=== PATIENT | male | born 1930 | race Caucasian/White ===

== ENCOUNTER 2017-03-24 02:21 | Observation (INO) | payer MEDICARE, OTHER ==
--- NOTE | 2017-03-24 02:37 | EDM.PDOC ---
ED HPI GENERAL MEDICAL PROBLEM - General Stated Complaint: ABD PAIN,CHILLS Time Seen by Provider: 03/24/17 02:21 Source of Information: Reports: Patient, Family History Limitations: Reports: No Limitations - History of Present Illness INITIAL COMMENTS - FREE TEXT/NARRATIVE: c/o weak x 24h has vague pain in his toe and his mid abd, had normal BM yesterday h/o CVA with L hemiparesis, lives with , walks 90 steps daily with a cane with his son, went to PT yesterday and was told his "pacemaker was acting up"-- skipping beats, was in NSR 4d ago at [facility] has 3.5 x 16 mm overlapping stents x 2 placed in [facility] 1m ago, kept overnight, labs stable then with wbc 7.2, hgb 15.3, BUN/creat 19/0.8 and CMP neg was seen by cardiology as preop for back surgery, has h/o 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 and lumbar spondylolithesis echo 1m ago with EF>70% and mild diastolic HF PMH CAD, stent x 2 5d ago, complete heart block, enlarged ascending aorta 4 cm, htn, dyslipidemia, GERD, blind OS, LAZ, BPH PSH multiple, see list meds includes ASA, Plavix, warfarin no f/c/d, no cough smoked in distant past - Related Data Allergies Allergy/AdvReac Type Severity Reaction Status Date / Time acetaminophen [From Tylox] Allergy Unknown Cannot Verified 03/24/17 02:37 Remember codeine Allergy Unknown Cannot Verified 03/24/17 02:37 Remember oxycodone HCl [From Tylox] Allergy Unknown Cannot Verified 03/24/17 02:37 Remember Home Meds: Home Meds Acetaminophen [Tylenol] 650 mg PO TID PRN 03/24/17 [History] Aspirin [Low Dose Aspirin EC] 81 mg PO DAILY 03/24/17 [History] Calcium Carbonate/Vitamin D3 [Calcium 600-Vit D3 400 Tablet] 1 tab PO DAILY 08/05 [History] Carvedilol [Carvedilol] 6.25 mg PO BID 03/24/17 [History] Clopidogrel Bisulfate [Clopidogrel] 75 mg PO DAILY 03/24/17 [History] Dextran 70/Hypromellose [Artificial Tears] 1 drop EYELF BID 03/24/17 [History] Furosemide [Lasix] 20 mg PO DAILY PRN 03/24/17 [History] Latanoprost [Xalatan 0.005% Ophth Soln] 1 drop EYERT BEDTIME 03/24/17 [History] Lutein 20 mg PO DAILY 03/24/17 [History] Multivitamin [Multivitamins] 1 tab PO DAILY 03/24/17 [History] Nitroglycerin 0.4 mg SL ASDIRECTED PRN 03/24/17 [History] Pantoprazole [ProTONIX] 40 mg PO BEDTIME 03/24/17 [History] Ranitidine [Zantac] 150 mg PO BID 03/24/17 [History] Tamsulosin [Flomax] 0.4 mg PO DAILY 03/24/17 [History] Timolol Maleate [Timoptic 0.5% Opth Soln] 1 drop EYERT DAILY 03/24/17 [History] Triamcinolone Acetonide [Triamcinolone Acetonide 0.1% Crm] 1 applic TOP BID 08/05 [History] Warfarin [Coumadin] 2.5 mg PO [id number] 03/24/17 [History] Warfarin [Coumadin] 5 mg PO MO 03/24/17 [History] atorvaSTATin [Lipitor] 40 mg PO DAILY 03/24/17 [History] hydrOXYzine HCl [Atarax] 25 mg PO Q8H PRN 03/24/17 [History] Past Medical History HEENT History: Reports: Other (See Below) 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 Musculoskeletal History: Reports: Osteoarthritis Neurological History: Reports: CVA ED ROS GENERAL - Review of Systems Review Of Systems: See Below Constitutional: Reports: Weakness. Denies: Fever, Chills, Malaise, Night Sweats , Diaphoresis, Decreased Appetite HEENT: Reports: No Symptoms Respiratory: Reports: Shortness of Breath Cardiovascular: Reports: No Symptoms. Denies: Chest Pain Endocrine: Reports: No Symptoms GI/Abdominal: Reports: Abdominal Pain. Denies: Constipation, Diarrhea, Nausea, Vomiting : Reports: No Symptoms Musculoskeletal: Reports: No Symptoms Skin: Reports: No Symptoms Neurological: Reports: Gait Disturbance Psychiatric: Reports: No Symptoms, Other Immunologic: Reports: No Symptoms ED EXAM, GENERAL - Physical Exam Exam: See Below Exam Limited By: No Limitations General Appearance: Alert, WD/WN, Mild Distress, Other (alert, conversant, talks complete sentences, answers questions) Eye Exam: Bilateral Eye: EOMI, Normal Inspection, PERRL Ear Exam: Bilateral Ear: Auricle Normal Nose: Normal Inspection, Normal Mucosa, No Blood Throat/Mouth: Normal Inspection, Normal Lips, Normal Oropharynx, Normal Voice, No Airway Compromise Head: Atraumatic, Normocephalic Neck: Normal Inspection, Supple, Non-Tender Respiratory/Chest: Other (tachypnea, no cough, fair AE b/l, scattered rales L base, no wheeze) Cardiovascular: No Edema, No Gallop, No Rub, Other (appeared reg, 2/6 [facility] at [facility] ) GI/Abdominal: Soft, Non-Tender, No Organomegaly, No Distention, No Mass Back Exam: Normal Inspection Extremities: Normal Inspection, Non-Tender, No Pedal Edema Neurological: Alert, Oriented, CN II-XII Intact, Normal Cognition, Other (L sided weakness) Psychiatric: Normal Affect, Normal Mood Skin Exam: Warm, Dry, Intact, Normal Color, No Rash Lymphatic: No Adenopathy Course - Vital Signs Last Recorded V/S: Last Vital Signs Temp 37.2 C 03/24/17 04:10 Pulse 86 03/24/17 04:10 Resp 22 H 03/24/17 04:10 BP 110/74 03/24/17 04:10 Pulse Ox 91 L 03/24/17 04:10 - Orders/Labs/Meds Orders: Active Orders 24 hr Category Date Time Status EKG Documentation Completion [RC] ASDIRECTED Care 03/24/17 02:31 Active Abdomen 1V Flat [CR] Stat Exams 03/24/17 02:29 Taken Ang Chest [CT] Stat Exams 03/24/17 05:32 Taken Chest 1V Frontal [CR] Stat Exams 03/24/17 02:29 Taken CULTURE BLOOD [BC] Urgent Lab 03/24/17 02:50 Received CULTURE BLOOD [BC] Urgent Lab 03/24/17 02:55 Received Blood Culture x2 Reflex Set [OM.PC] Urgent Oth 03/24/17 02:28 Ordered EKG 12 Lead [EK] Routine Ther 03/24/17 02:30 Ordered Labs: Laboratory Tests 03/24/17 03/24/17 03/24/17 Range/Units 02:50 02:50 02:50 WBC 4.6 (4.5-12.0) X10-3/uL RBC 4.34 (4.30-5.75) x10(6)uL Hgb 13.4 (11.5-15.5) g/dL Hct 40.2 (30.0-51.3) % MCV 92.6 (80-96) fL MCH 30.9 (27.7-33.6) pg MCHC 33.3 (32.2-35.4) g/dL RDW 14.6 (11.5-15.5) % Plt Count 189 (125-369) X10(3)uL MPV 7.5 (7.4-10.4) fL Add Manual Diff Yes Neutrophils % (Manual) 82 (46-82) % Band Neutrophils % 1 (0-6) % Lymphocytes % (Manual) 12 L (13-37) % Monocytes % (Manual) 3 L (4-12) % Eosinophils % (Manual) 2 (0-5) % PT 19.1 H (8.7-11.1) INR 1.87 H (0.89-1.13) D-Dimer, Quantitative (100-400) ng/mL VBG pH (7.32-7.42) VBG pCO2 VBG pO2 VBG HCO3 mmol/L VBG O2 Saturation VBG Base Excess O2 Delivery Device Sodium (135-145) mmol/L Potassium (3.5-5.3) mmol/L Chloride (100-110) mmol/L Carbon Dioxide (23-29) mmol/L BUN (8-23) mg/dL Creatinine (0.6-1.3) mg/dL Est Cr Clr Drug Dosing Estimated GFR (MDRD) (>60) BUN/Creatinine Ratio (9-20) Glucose (80-116) mg/dL Lactic Acid 2.0 (0.5-2.2) mmol/L Calcium (8.6-10.2) mg/dL Total Bilirubin (0.1-1.3) mg/dL AST (5-27) IU/L ALT (14-26) IU/L Alkaline Phosphatase (56-112) IU/L Troponin I (0.02-0.06) NG/ML C-Reactive Protein (0.0-1.0) mg/dL NT-Pro-B Natriuret Pep (5-450) pg/mL Total Protein (6.0-8.0) g/dL Albumin (3.2-4.6) g/dL Globulin g/dL Albumin/Globulin Ratio Urine Color (YELLOW) Urine Appearance (CLEAR) Urine pH (5.0-6.5) Ur Specific [place] (1.010-1.025) Urine Protein (NEGATIVE) mg/dL Urine Glucose (UA) (NEGATIVE) mg/dL Urine Ketones (NEGATIVE) mg/dL Urine Occult Blood (NEGATIVE) Urine Nitrite (NEGATIVE) Urine Bilirubin (NEGATIVE) Urine Urobilinogen (NEGATIVE) mg/dL Ur Leukocyte Esterase (NEGATIVE) Urine RBC (0) Urine WBC (0) Ur Squamous Epith Cells (NS,R,O) Urine Bacteria (NS) 03/24/17 03/24/17 03/24/17 Range/Units 02:50 02:50 02:50 WBC (4.5-12.0) X10-3/uL RBC (4.30-5.75) x10(6)uL Hgb (11.5-15.5) g/dL Hct (30.0-51.3) % MCV (80-96) fL MCH (27.7-33.6) pg MCHC (32.2-35.4) g/dL RDW (11.5-15.5) % Plt Count (125-369) X10(3)uL MPV (7.4-10.4) fL Add Manual Diff Neutrophils % (Manual) (46-82) % Band Neutrophils % (0-6) % Lymphocytes % (Manual) (13-37) % Monocytes % (Manual) (4-12) % Eosinophils % (Manual) (0-5) % PT (8.7-11.1) INR (0.89-1.13) D-Dimer, Quantitative (100-400) ng/mL VBG pH (7.32-7.42) VBG pCO2 VBG pO2 VBG HCO3 mmol/L VBG O2 Saturation VBG Base Excess O2 Delivery Device Sodium 139 (135-145) mmol/L Potassium 3.5 (3.5-5.3) mmol/L Chloride 104 (100-110) mmol/L Carbon Dioxide 26 (23-29) mmol/L BUN 12 (8-23) mg/dL Creatinine 0.8 (0.6-1.3) mg/dL Est Cr Clr Drug Dosing TNP Estimated GFR (MDRD) > 60 (>60) BUN/Creatinine Ratio 15.0 (9-20) Glucose 100 (80-116) mg/dL Lactic Acid (0.5-2.2) mmol/L Calcium 8.4 L (8.6-10.2) mg/dL Total Bilirubin 0.9 (0.1-1.3) mg/dL AST 19 (5-27) IU/L ALT 22 (14-26) IU/L Alkaline Phosphatase 58 (56-112) IU/L Troponin I < 0.01 L (0.02-0.06) NG/ML C-Reactive Protein < 0.5 (0.0-1.0) mg/dL NT-Pro-B Natriuret Pep 111 (5-450) pg/mL Total Protein 6.3 (6.0-8.0) g/dL Albumin 3.4 (3.2-4.6) g/dL Globulin 2.9 g/dL Albumin/Globulin Ratio 1.2 Urine Color (YELLOW) Urine Appearance (CLEAR) Urine pH (5.0-6.5) Ur Specific [place] (1.010-1.025) Urine Protein (NEGATIVE) mg/dL Urine Glucose (UA) (NEGATIVE) mg/dL Urine Ketones (NEGATIVE) mg/dL Urine Occult Blood (NEGATIVE) Urine Nitrite (NEGATIVE) Urine Bilirubin (NEGATIVE) Urine Urobilinogen (NEGATIVE) mg/dL Ur Leukocyte Esterase (NEGATIVE) Urine RBC (0) Urine WBC (0) Ur Squamous Epith Cells (NS,R,O) Urine Bacteria (NS) 03/24/17 03/24/17 03/24/17 Range/Units 02:50 02:55 03:22 WBC (4.5-12.0) X10-3/uL RBC (4.30-5.75) x10(6)uL Hgb (11.5-15.5) g/dL Hct (30.0-51.3) % MCV (80-96) fL MCH (27.7-33.6) pg MCHC (32.2-35.4) g/dL RDW (11.5-15.5) % Plt Count (125-369) X10(3)uL MPV (7.4-10.4) fL Add Manual Diff Neutrophils % (Manual) (46-82) % Band Neutrophils % (0-6) % Lymphocytes % (Manual) (13-37) % Monocytes % (Manual) (4-12) % Eosinophils % (Manual) (0-5) % PT (8.7-11.1) INR (0.89-1.13) D-Dimer, Quantitative 1150 H (100-400) ng/mL VBG pH 7.447 H (7.32-7.42) VBG pCO2 36.8 VBG pO2 38 VBG HCO3 25 mmol/L VBG O2 Saturation 74 VBG Base Excess 1.0 O2 Delivery Device Nasal cannula Sodium (135-145) mmol/L Potassium (3.5-5.3) mmol/L Chloride (100-110) mmol/L Carbon Dioxide (23-29) mmol/L BUN (8-23) mg/dL Creatinine (0.6-1.3) mg/dL Est Cr Clr Drug Dosing Estimated GFR (MDRD) (>60) BUN/Creatinine Ratio (9-20) Glucose (80-116) mg/dL Lactic Acid (0.5-2.2) mmol/L Calcium (8.6-10.2) mg/dL Total Bilirubin (0.1-1.3) mg/dL AST (5-27) IU/L ALT (14-26) IU/L Alkaline Phosphatase (56-112) IU/L Troponin I (0.02-0.06) NG/ML C-Reactive Protein (0.0-1.0) mg/dL NT-Pro-B Natriuret Pep (5-450) pg/mL Total Protein (6.0-8.0) g/dL Albumin (3.2-4.6) g/dL Globulin g/dL Albumin/Globulin Ratio Urine Color Yellow (YELLOW) Urine Appearance Clear (CLEAR) Urine pH 6.5 (5.0-6.5) Ur Specific [place] 1.010 (1.010-1.025) Urine Protein Negative (NEGATIVE) mg/dL Urine Glucose (UA) Normal (NEGATIVE) mg/dL Urine Ketones Negative (NEGATIVE) mg/dL Urine Occult Blood Negative (NEGATIVE) Urine Nitrite Negative (NEGATIVE) Urine Bilirubin Negative (NEGATIVE) Urine Urobilinogen Normal (NEGATIVE) mg/dL Ur Leukocyte Esterase Negative (NEGATIVE) Urine RBC 0-5 (0) Urine WBC 0-5 (0) Ur Squamous Epith Cells Occasional (NS,R,O) Urine Bacteria Rare H (NS) Meds: Medications Discontinued Medications Generic Name Dose Route Start Last Admin Trade Name Aristeo PRN Reason Stop Dose Admin Iopamidol 100 ml 03/24/17 05:28 03/24/17 05:41 Isovue-370 (76%) IV 03/24/17 05:29 100 ml . DIRECTED ONE Administration - Re-Assessments/Exams Free Text/Narrative Re-Assessment/Exam: 03/24/17 04:29 labs unremarkable with little change c/w 1m ago, does have tachypnea 03/24/17 07:20 d-dimer elevated, chest CTA nondiagnostic as pt had motion artifact, it may be reasonable to do LE u/s even though he is on warfarin, does have tachypnea and hypoxia, along with h/o of chills and weakness would need to consider dx of acute bronchitis and possible need for antbx, would still need to consider possible PE with nondiagnositic chest CTA d/w hospitalist who will see him first and put in his admission orders pt requests full code status, plan to admit d/w pt's and son (and his spouse) who are in agreement Departure - Departure Time of Disposition: 07:23 Disposition: Refer to Observation Condition: Fair Clinical Impression: Acute bronchitis, Tachypnea, Hypoxia, Chills, Warfarin anticoagulation, Weakness - Discharge Information Referrals: Ellis Coleman MD [Primary Care Provider] - - My Orders Last 24 Hours: My Active Orders 03/24/17 02:28 Blood Culture x2 Reflex Set [OM.PC] Urgent 03/24/17 02:29 Abdomen 1V Flat [CR] Stat Chest 1V Frontal [CR] Stat 03/24/17 02:30 EKG 12 Lead [EK] Routine 03/24/17 02:31 EKG Documentation Completion [RC] ASDIRECTED 03/24/17 02:50 CULTURE BLOOD [BC] Urgent 03/24/17 02:55 CULTURE BLOOD [BC] Urgent 03/24/17 05:32 Ang Chest [CT] Stat - Assessment/Plan Last 24 Hours: My Active Orders 03/24/17 02:28 Blood Culture x2 Reflex Set [OM.PC] Urgent 03/24/17 02:29 Abdomen 1V Flat [CR] Stat Chest 1V Frontal [CR] Stat 03/24/17 02:30 EKG 12 Lead [EK] Routine 03/24/17 02:31 EKG Documentation Completion [RC] ASDIRECTED 03/24/17 02:50 CULTURE BLOOD [BC] Urgent 03/24/17 02:55 CULTURE BLOOD [BC] Urgent 03/24/17 05:32 Ang Chest [CT] Stat
[2017-03-24] MEDS ORDERED: Iopamidol 755 Mg/ML 100 ML Bottle IV ONE (05:28)
[2017-03-24] MEDS ORDERED: Sodium Chloride 0.9% 10 ML Syringe FLUSH PRN ×2 (08:23→08:45)
[2017-03-24] MEDS ORDERED: Acetaminophen 650 MG Supp RECTAL PRN (08:45)
[2017-03-24] MEDS ORDERED: Warfarin Sliding Scale PO SCH (09:15)
--- NOTE | 2017-03-24 09:21 | PCM.HP ---
H&P History of Present Illness - General Date of Service: 03/24/17 Admit Problem/Dx: Admission Diagnosis/Problem Admission Diagnosis/Problem Aspiration pneumonia Source of Information: Patient, Family History Limitations: Reports: No Limitations - History of Present Illness Initial Comments - Free Text/Narative: Patient is an 86-year-old male with a history of vasculopathy with CVA 2 in 2015 and an WV at the time of his first CVA as well as 2 stents placed in February 2017. After his hospitalization for stent placement, the patient noticed he started to develop a cough. It was somewhat insidious. Over time the cough has grown more severe, he's had increasing shortness of breath, and overnight developed severe chills and abdominal pain. He was so uncomfortable he called the ambulance and they came into the emergency department. He felt very bloated and gassy he was shivering and lightheaded. He was nauseated but had no vomiting. He does have typically loose stools first thing in the morning and then none throughout the rest of the day. This has not changed since 1982 when he had a colon resection due to polyps. He is on warfarin for atrial fibrillation and the emergency room physician was concerned about the possibility of PE since his warfarin was subtherapeutic at 1.87. CT chest did not show any evidence of PE but did show bilateral lower lobe infiltrates. The patient was recommended for admission due to his age, the unclear etiology of abdominal pain, and further treatment for pneumonia, possibly aspiration. Patient at this time no longer has chills, is comfortable from a respiratory standpoint, still has a dry cough which at times is paroxysmal,. He does note he feels tight around the abdomen and has had nasal congestion for months, lightheaded and severe cough for the last 1-2 weeks, severe episodes of chills although not as severe as today. He's been incontinent of urine. No burning. The urine incontinence has been going on for quite some time and it is made worse by the cough. He's had no fevers that he knows of at home. He has been having trouble with bad nightmares which was thought to be due to the Atarax which has been stopped. Past medical history: #1. Colon resection due to polyps many years ago which resulted in chronic loose stools. #2. CVA 2 in 2016 about a month apart. Patient also had a small WV at this time which did not require intervention. 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 History of myocardial infarction in 2016 and again last month the patient was admitted for elective coronary angiogram as part of preoperative cardiovascular evaluation prior to epidural steroid injection. 2 stents placed on February 16, 2017. Left heart catheterization showed LAD obstruction with 2 stents placed drug-eluting. Patient advised to continue aspirin indefinitely, Plavix uninterrupted for minimum of 1 year, warfarin. Protonix was started for GI prophylaxis. Carvedilol and high intensity statin therapy were also started at this time. #4. Gastroesophageal reflux disease #5. Hyperlipidemia #6. Atrial fibrillation with history of pacemaker placement. On warfarin for this. History of complete heart block status post dual-chamber pacemaker placement 08/12/2015. #7. BPH currently on Flomax. #8. Chronic itching for which the patient was taking Atarax when necessary. This has been stopped due to vivid dreams/nightmares. #9. 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 10. Obstructive sleep apnea on CPAP. Current medications and allergies updated in the EMR. Of note patient is not allergic to acetaminophen. He does take this regularly at home. Social history: Patient lives [place] in [place] [facility] [place] with his . His son also lives on the same property in a separate home. He is a nonsmoker, drinks alcohol rarely about once a year. Family history: Noncontributory due to patient age. - Related Data Allergies/Adverse Reactions: Allergies Allergy/AdvReac Type Severity Reaction Status Date / Time acetaminophen [From Tylox] Allergy Unknown Cannot Verified 03/24/17 02:37 Remember codeine Allergy Unknown Cannot Verified 03/24/17 02:37 Remember oxycodone HCl [From Tylox] Allergy Unknown Cannot Verified 03/24/17 02:37 Remember Home Medications: Home Meds Acetaminophen [Tylenol] 650 mg PO TID PRN 03/24/17 [History] Aspirin [Low Dose Aspirin EC] 81 mg PO DAILY 03/24/17 [History] Calcium Carbonate/Vitamin D3 [Calcium 600-Vit D3 400 Tablet] 1 tab PO DAILY 08/05 [History] Carvedilol [Carvedilol] 6.25 mg PO BID 03/24/17 [History] Clopidogrel Bisulfate [Clopidogrel] 75 mg PO DAILY 03/24/17 [History] Dextran 70/Hypromellose [Artificial Tears] 1 drop EYELF BID 03/24/17 [History] Furosemide [Lasix] 20 mg PO DAILY PRN 03/24/17 [History] Latanoprost [Xalatan 0.005% Ophth Soln] 1 drop EYERT BEDTIME 03/24/17 [History] Lutein 20 mg PO DAILY 03/24/17 [History] Multivitamin [Multivitamins] 1 tab PO DAILY 03/24/17 [History] Nitroglycerin 0.4 mg SL ASDIRECTED PRN 03/24/17 [History] Pantoprazole [ProTONIX] 40 mg PO BEDTIME 03/24/17 [History] Ranitidine [Zantac] 150 mg PO BID 03/24/17 [History] Tamsulosin [Flomax] 0.4 mg PO DAILY 03/24/17 [History] Timolol Maleate [Timoptic 0.5% Opth Soln] 1 drop EYERT DAILY 03/24/17 [History] Triamcinolone Acetonide [Triamcinolone Acetonide 0.1% Crm] 1 applic TOP BID 08/05 [History] Warfarin [Coumadin] 2.5 mg PO SUTUWETHFRSA 03/24/17 [History] Warfarin [Coumadin] 5 mg PO MO 03/24/17 [History] atorvaSTATin [Lipitor] 40 mg PO DAILY 03/24/17 [History] hydrOXYzine HCl [Atarax] 25 mg PO Q8H PRN 03/24/17 [History] Past Medical History HEENT History: Reports: Other (See Below) 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 Musculoskeletal History: Reports: Osteoarthritis Neurological History: Reports: CVA Social & Family History - Tobacco Use Smoking Status *Q: Former Smoker Used Tobacco, but Quit: Yes Month Tobacco Last Used: / - Recreational Drug Use Recreational Drug Use: No H&P Review of Systems - Review of Systems: Review Of Systems: See Below General: Reports: Chills, Weakness HEENT: Reports: Rhinitis, Post Nasal Drip, Sinus Congestion Pulmonary: Reports: Shortness of Breath, Wheezing, Cough (Nonproductive paroxysmal) Cardiovascular: Reports: Dyspnea on Exertion Gastrointestinal: Reports: Abdominal Pain, Flatus, Nausea (Now much improved.) Genitourinary: Reports: Incontinence (Chronic) Musculoskeletal: Reports: Other (Chronic arthritis, patient also has left upper extremity and lower extremity weakness secondary to stroke.) Skin: Reports: Bruising Psychiatric: Reports: No Symptoms Neurological: Reports: No Symptoms (Other than chronic related to previous stroke.) Hematologic/Lymphatic: Reports: Easy Bruising Immunologic: Reports: No Symptoms Exam - Exam Exam: See Below - Vital Signs Vital Signs: Last Vital Signs Temp 37.2 C 03/24/17 04:10 Pulse 86 03/24/17 05:45 Resp 24 H 03/24/17 05:45 BP 102/67 03/24/17 05:45 Pulse Ox 91 L 03/24/17 05:45 Weight: 80.995 kg - Exam General: Alert, Oriented, Cooperative HEENT: PERRLA, EOMI, Mucosa Moist & [place], Posterior Pharynx Clear, Pupils Reactive, TMs Clear Neck: Supple, Full Range of Motion Lungs: Decreased Breath Sounds, Crackles, Wheezing Cardiovascular: Normal S1, Normal S2, Irregular Rhythm GI/Abdominal Exam: Normal Bowel Sounds, Soft, Tender (Diffusely, no rebound, no guarding. I don't appreciate a distended bladder on physical exam.) Back Exam: Normal Inspection Extremities: No Pedal Edema (Swelling or tenderness. No redness. Toenail fungus present.) - Patient Data Result Diagrams: 03/24/17 02:50 03/24/17 02:50 *Q Meaningful Use (ADM) - VTE *Q VTE Criteria *Q: - Stroke *Q Stroke Criteria *Q: - AMI *Q AMI Criteria *Q: - Problem List (1) Aspiration pneumonia due to saliva SNOMED Code(s): 806773547 ICD Code: J69.0 - PNEUMONITIS DUE TO INHALATION OF FOOD AND VOMIT Status: Acute Priority: High Current Visit: Yes Problem Details: Bilateral infiltrates on chest x-ray sick just of pneumonia, with patient recent history of procedure with sedation putting him at risk for aspiration. The patient's insidious symptom onset suggestive of aspiration. I'm going to treat him with Levaquin 500 mg by mouth daily which will give good aspiration pneumonia coverage. We'll monitor respiratory status and anticipate likely ready for discharge in the next 48 hours. With wheezing will do DuoNeb's 4 times a day. Induced sputum for possible etiology. (2) CAD (coronary artery disease) SNOMED Code(s): 13704669 ICD Code: I25.10 - ATHSCL HEART DISEASE OF [place] CORONARY ARTERY W/O ANG PCTRS Status: Acute Current Visit: Yes Problem Details: Recent stent placement 2 in January 2017. Recommend continuing Plavix, aspirin, warfarin. Continue other heart medications. Cardiac monitoring given the new addition of beta rissa and his history of atrial fibrillation with rapid ventricular response. (3) Abdominal pain SNOMED Code(s): 20740172 ICD Code: R10.9 - UNSPECIFIED ABDOMINAL PAIN Status: Acute Current Visit : Yes Problem Details: Etiology unclear. We'll rule out possible acute urinary retention with bladder scanning. Check a UA to rule out urinary infection. If patient's pain worsens, we'll get imaging. Patient is high risk for ischemic bowel as well but has had no blood. We'll continue to monitor. 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 Although patient is slightly subtherapeutic at this time with an INR of 1.87, he's fairly well anticoagulated given his Plavix and aspirin for DVT/PE at this level. Will not bridge at this time. Problem List Initiated/Reviewed/Updated: Yes Orders Last 24hrs: Active Orders 24 hr Category Date Time Status Admission Status [Patient Status] [ADT] Routine ADT 03/24/17 08:56 Active Ambulate [RC] ASDIRECTED Care 03/24/17 08:45 Active Anticoag Warfarin Education *Q [RC] DAILY Care 03/24/17 08:45 Active Bladder Scan [RC] ONETIME Care 03/24/17 08:58 Active Cardiac Monitoring [RC] CONTINUOUS Care 03/24/17 08:47 Active Height and Weight [RC] DAILY Care 03/24/17 08:45 Active Intake and Output [RC] QSHIFT Care 03/24/17 08:47 Active Oxygen Therapy [RC] PRN Care 03/24/17 08:46 Active RT Aerosol Therapy [RC] ASDIRECTED Care 03/24/17 08:50 Active Up With Assistance [RC] ASDIRECTED Care 03/24/17 08:45 Active VTE/DVT Education [RC] Per Unit Routine Care 03/24/17 08:46 Active Vital Signs [RC] Q4H Care 03/24/17 08:46 Active Consult to Pharmacy [CONS] Routine Cons 03/24/17 09:02 Active OT Evaluation and Treatment [CONS] Routine Cons 03/24/17 08:45 Active PT Evaluation and Treatment [CONS] Routine Cons 03/24/17 08:45 Active Respiratory Care Assess and Treatment [CONS] Routine Cons 03/24/17 08:45 Active 2 Gram Sodium Diet [DIET] Diet 03/24/17 Breakfast Active CBC WITH AUTO DIFF [HEME] AM Lab 03/25/17 05:11 Ordered COMPREHENSIVE METABOLIC PN,CMP [CHEM] AM Lab 03/25/17 05:11 Ordered CULTURE SPUTUM + SMEAR [RM] Routine Lab 03/24/17 08:55 Uncollected INR,PT,PROTHROMBIN TIME [COAG] DAILY Lab 03/25/17 08:45 Ordered INR,PT,PROTHROMBIN TIME [COAG] DAILY Lab 03/26/17 08:45 Ordered INR,PT,PROTHROMBIN TIME [COAG] DAILY Lab 03/27/17 08:45 Ordered INR,PT,PROTHROMBIN TIME [COAG] DAILY Lab 03/28/17 08:45 Ordered INR,PT,PROTHROMBIN TIME [COAG] DAILY Lab 03/29/17 08:45 Ordered INR,PT,PROTHROMBIN TIME [COAG] DAILY Lab 03/30/17 08:45 Ordered INR,PT,PROTHROMBIN TIME [COAG] DAILY Lab 03/31/17 08:45 Ordered INR,PT,PROTHROMBIN TIME [COAG] DAILY Lab 04/01/17 08:45 Ordered UA W/MICROSCOPIC [URIN] Stat Lab 03/24/17 08:45 Uncollected Acetaminophen [Tylenol] Med 03/24/17 08:45 Active 650 mg RECTAL Q4H PRN Albuterol/Ipratropium [DuoNeb 3.0-0.5 MG/3 ML] Med 03/24/17 11:00 Active 3 ml NEB QIDRT Aspirin [Halfprin] Med 03/25/17 09:00 Ordered 81 mg PO DAILY Carvedilol [Coreg] Med 03/24/17 21:00 Ordered 6.25 mg PO BID Clopidogrel [Plavix] Med 03/25/17 09:00 Ordered 75 mg PO DAILY Dextran 70/Hypromellose [Artificial Tears] Med 03/24/17 21:00 Ordered 1 drop EYELF BID Latanoprost [Xalatan 0.005% Ophth Soln] Med 03/24/17 21:00 Ordered 1 drop EYERT BEDTIME Levofloxacin [Levaquin] Med 03/24/17 09:00 Ordered 500 mg PO Q24H Pantoprazole [ProTONIX] Med 03/24/17 21:00 Ordered 40 mg PO BEDTIME Ranitidine [Zantac] Med 03/24/17 21:00 Ordered 150 mg PO BID Sodium Chloride 0.9% [Saline Flush] Med 03/24/17 08:23 Active 10 ml FLUSH ASDIRECTED PRN Sodium Chloride 0.9% [Saline Flush] Med 03/24/17 08:45 Active 10 ml FLUSH ASDIRECTED PRN Tamsulosin [Flomax] Med 03/25/17 09:00 Ordered 0.4 mg PO DAILY Timolol Maleate [Timoptic 0.5% Ophth Soln] Med 03/25/17 09:00 Ordered 1 drop EYERT DAILY Warfarin Sliding Scale [Coumadin Sliding Scale] Med 03/24/17 09:15 Ordered 1 each PO ASDIRECTED atorvaSTATin [Lipitor] Med 03/25/17 09:00 Ordered 40 mg PO DAILY Peripheral IV Insertion Adult [OM.PC] Routine Oth 03/24/17 08:45 Ordered Sequential Compression Device [OM.PC] Per Unit Routine Oth 03/24/17 08:47 Ordered Resuscitation Status Routine Resus Stat 03/24/17 08:45 Ordered Medication Orders Acetaminophen (Tylenol) 650 mg RECTAL Q4H PRN PRN Reason: Mild pain/fever Albuterol/Ipratropium (Duoneb 3.0-0.5 Mg/3 Ml) 3 ml NEB QIDRT [facility] Aspirin (Halfprin) 81 mg PO DAILY [facility] Atorvastatin Calcium (Lipitor) 40 mg PO DAILY [facility] Carvedilol (Coreg) 6.25 mg PO BID [facility] Clopidogrel Bisulfate (Plavix) 75 mg PO DAILY [facility] Levofloxacin (Levaquin) 500 mg PO Q24H [facility] Stop: 03/28/17 09:01 Non-Formulary Medication (Dextran 70/Hypromellose [Artificial Tears]) 1 drop EYELF BID [facility] Non-Formulary Medication (Latanoprost [Xalatan 0.005% Ophth Soln]) 1 drop EYERT BEDTIME [facility] Non-Formulary Medication (Pantoprazole [Protonix]) 40 mg PO BEDTIME [facility] Non-Formulary Medication (Ranitidine [Zantac]) 150 mg PO BID [facility] Sodium Chloride (Saline Flush) 10 ml FLUSH ASDIRECTED PRN PRN Reason: Keep Vein Open Sodium Chloride (Saline Flush) 10 ml FLUSH ASDIRECTED PRN PRN Reason: Keep Vein Open Tamsulosin HCl (Flomax) 0.4 mg PO DAILY [facility] Timolol Maleate (Timoptic 0.5% Ophth Soln) ml EYERT DAILY [facility] Warfarin Sodium (Coumadin Sliding Scale) 1 each PO ASDIRECTED [facility]
[2017-03-24] MEDS: Albuterol/Ipratropium 3.0-0.5 MG/3 ML Neb Soln NEB SCH ×3 (10:18→21:03)
[2017-03-24] MEDS: Levofloxacin 500 MG Tab PO SCH (10:28)
--- NOTE | 2017-03-24 10:34 | CR ---
INDICATION: Short of breath. CHEST: An AP upright view of the chest was obtained 03/24/2017 and compared with 08/10/2012 and 09/26/2011. The patient is rotated to the right. The heart appears to be enlarged, but is emphasized by a poor inspiration and AP positioning. Interval placement of a bipolar pacemaker is noted with the ventricular lead in the area of the apex of the right ventricle. Somewhat prominent markings are emphasized by the poor inspiration. When clinically possible, full inspiration PA and lateral views of the chest may be helpful for further evaluation. No gross consolidating pneumonia or significant sized effusion was identified. The aorta is tortuous and calcified. IMPRESSION: Study somewhat limited. No definite acute process, but cannot exclude a mild degree of CHF and interstitial lung edema. No free air is noted under the hemidiaphragm leaves. MTDD
--- NOTE | 2017-03-24 10:39 | CR ---
INDICATION: Mid abdominal pain. ABDOMEN: Two images of the abdomen were obtained supine, 03/24/2017. 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 Multiple phleboliths are noted in the pelvis. A small mass is again noted in the pelvis, compatible with mildly distended urinary bladder. There was some motion on the examination, most likely due to breathing. The pattern of gas and feces was fairly nonspecific, with no gross free air or definite obstructive process. Gas and stool is noted in the rectum. Degenerative changes are noted at the sacroiliac joints. Degenerative changes and disk disease are noted at L3-4, L4-5. No definite organomegaly or nonvascular pathologic calcifications were identified. Calcifications are noted in the area of the iliac arteries. IMPRESSION: Nonacute abdomen with multiple findings as noted above. MTDD
[2017-03-24] MEDS ORDERED: Warfarin 5 MG Tab PO SCH (16:00)
[2017-03-24] MEDS: Clopidogrel 75 MG Tab *PTOM PO SCH (17:41)
[2017-03-24] MEDS: Timolol Maleate 0.5% Ophth Soln 5 ML Bottle EYERT SCH (17:42)
[2017-03-24] MEDS: CARBOXYMETHYLCELLULOSE EYELF SCH ×2 (17:43→21:05)
[2017-03-24] MEDS: GLYCERIN 0.9% EYELF SCH ×2 (17:43→21:05)
[2017-03-24] MEDS: Aspirin 81 MG Tab.EC PO SCH (17:45)
[2017-03-24] MEDS: Tamsulosin 0.4 MG Cap.ER *PTOM PO SCH (17:45)
[2017-03-24] MEDS: atorvaSTATin 40 MG Tab *PTOM PO SCH (17:47)
[2017-03-24] MEDS: Carvedilol 6.25 MG Tab *PTOM PO SCH (21:02)
[2017-03-24] MEDS: RANITIDINE 150 MG PO SCH (21:03)
[2017-03-24] MEDS: Latanoprost 0.005% Ophth Soln 2.5 ML Bottle *PTOM EYERT SCH (21:05)
[2017-03-25] MEDS: Albuterol/Ipratropium 3.0-0.5 MG/3 ML Neb Soln NEB SCH ×4 (07:28→20:05)
[2017-03-25] MEDS: Carvedilol 6.25 MG Tab *PTOM PO SCH ×2 (09:02→20:10)
[2017-03-25] MEDS: Tamsulosin 0.4 MG Cap.ER *PTOM PO SCH (09:03)
[2017-03-25] MEDS: Aspirin 81 MG Tab.EC PO SCH (09:03)
[2017-03-25] MEDS: CARBOXYMETHYLCELLULOSE EYELF SCH ×2 (09:04→20:05)
[2017-03-25] MEDS: RANITIDINE 150 MG PO SCH ×2 (09:04→20:04)
[2017-03-25] MEDS: GLYCERIN 0.9% EYELF SCH ×2 (09:04→20:05)
[2017-03-25] MEDS: Clopidogrel 75 MG Tab *PTOM PO SCH (09:04)
[2017-03-25] MEDS: Timolol Maleate 0.5% Ophth Soln 5 ML Bottle EYERT SCH (09:05)
[2017-03-25] MEDS: Levofloxacin 500 MG Tab PO SCH (11:01)
--- NOTE | 2017-03-25 13:09 | PCM.PN ---
- General Info Date of Service: 03/25/17 Subjective Update: Patient feeling much improved today. Shortness of breath is better. Abdominal pain is better. No nausea or vomiting. Continues to have his chronic loose stools with no change. Has had a much more productive cough and is getting out phlegm. He was able to get a sputum sample today. Functional Status: Reports: Pain Controlled, Tolerating Diet, Urinating - Review of Systems General: Reports: No Symptoms - Patient Data Vitals - Most Recent: Last Vital Signs Temp 37.1 C 03/25/17 04:00 Pulse 74 03/25/17 11:12 Resp 22 H 03/25/17 04:00 BP 120/78 03/25/17 09:02 Pulse Ox 92 L 03/25/17 11:11 Weight - Most Recent: 81.023 kg Lab Results Last 24 Hours: Laboratory Results - last 24 hr 03/25/17 03/25/17 03/25/17 Range/Units 08:10 08:10 08:10 WBC 11.5 (4.5-12.0) X10-3/uL RBC 4.31 (4.30-5.75) x10(6)uL Hgb 13.3 (11.5-15.5) g/dL Hct 39.5 (30.0-51.3) % MCV 91.8 (80-96) fL MCH 30.8 (27.7-33.6) pg MCHC 33.6 (32.2-35.4) g/dL RDW 15.2 (11.5-15.5) % Plt Count 210 (125-369) X10(3)uL MPV 8.1 (7.4-10.4) fL Add Manual Diff Yes Neutrophils % (Manual) 81 (46-82) % Band Neutrophils % 1 (0-6) % Lymphocytes % (Manual) 14 (13-37) % Monocytes % (Manual) 4 (4-12) % PT 14.8 H (8.7-11.1) INR 1.46 H (0.89-1.13) Sodium 134 L (135-145) mmol/L Potassium 3.8 (3.5-5.3) mmol/L Chloride 101 (100-110) mmol/L Carbon Dioxide 25 (23-29) mmol/L BUN 12 (8-23) mg/dL Creatinine 0.9 (0.6-1.3) mg/dL Est Cr Clr Drug Dosing 56.10 mL/min Estimated GFR (MDRD) > 60 (>60) BUN/Creatinine Ratio 13.3 (9-20) Glucose 107 (80-116) mg/dL Calcium 8.8 (8.6-10.2) mg/dL Total Bilirubin 1.3 (0.1-1.3) mg/dL AST 16 D (5-27) IU/L ALT 17 D (14-26) IU/L Alkaline Phosphatase 52 L (56-112) IU/L Total Protein 6.6 (6.0-8.0) g/dL Albumin 3.3 (3.2-4.6) g/dL Globulin 3.3 g/dL Albumin/Globulin Ratio 1.0 Med Orders - Current: Current Medications Acetaminophen (Tylenol) 650 mg RECTAL Q4H PRN PRN Reason: Mild pain/fever Albuterol/Ipratropium (Duoneb 3.0-0.5 Mg/3 Ml) 3 ml NEB QIDRT [facility] Last Admin: 03/25/17 11:07 Dose: 3 ml Aspirin (Halfprin) 81 mg PO DAILY [facility] Last Admin: 03/25/17 09:03 Dose: 81 mg Atorvastatin Calcium (Lipitor) 40 mg PO WITHDINNER [facility] Last Admin: 03/24/17 17:47 Dose: 40 mg Carboxymethylcellulose (Refresh Optive) 0 ml EYELF BID [facility] Last Admin: 03/25/17 09:04 Dose: 1 drop Carvedilol (Coreg) 6.25 mg PO BID [facility] Last Admin: 03/25/17 09:02 Dose: 6.25 mg Clopidogrel Bisulfate (Plavix) 75 mg PO DAILY [facility] Last Admin: 03/25/17 09:04 Dose: 75 mg Latanoprost (Xalatan 0.005% Oph Soln) 0 ml EYERT BEDTIME [facility] Last Admin: 03/24/17 21:05 Dose: 1 drop Levofloxacin (Levaquin) 500 mg PO Q24H [facility] Stop: 03/28/17 10:01 Last Admin: 03/25/17 11:01 Dose: 500 mg Non-Formulary Medication 1 Each ( Ranitidine [Zantac] 150 Mg) *Ptom 150 mg PO BID [facility] Last Admin: 03/25/17 09:04 Dose: 150 mg Pantoprazole Sodium (Protonix) 40 mg PO BEDTIME [facility] Last Admin: 03/24/17 21:04 Dose: 40 mg Sodium Chloride (Saline Flush) 10 ml FLUSH ASDIRECTED PRN PRN Reason: Keep Vein Open Last Admin: 03/24/17 09:00 Dose: 10 ml Sodium Chloride (Saline Flush) 10 ml FLUSH ASDIRECTED PRN PRN Reason: Keep Vein Open Tamsulosin HCl (Flomax) 0.4 mg PO DAILY [facility] Last Admin: 03/25/17 09:03 Dose: 0.4 mg Timolol Maleate (Timoptic 0.5% Ophth Soln) 0 ml EYERT DAILY [facility] Last Admin: 03/25/17 09:05 Dose: 1 drop Warfarin Sodium (Coumadin Sliding Scale) 1 each PO ASDIRECTED [facility] Warfarin Sodium (Coumadin) 5 mg PO 1600 [facility] Stop: 03/25/17 18:00 Discontinued Medications Iopamidol (Isovue-370 (76%)) 100 ml IV . DIRECTED ONE Stop: 03/24/17 05:29 Last Admin: 03/24/17 05:41 Dose: 100 ml Warfarin Sodium (Coumadin) 2.5 mg PO 1600 [facility] Stop: 03/24/17 16:01 Last Admin: 03/24/17 17:44 Dose: 2.5 mg - Exam General: Alert, Cooperative, No Acute Distress HEENT: Pupils Equal, Pupils Reactive Neck: Supple Lungs: Other (Lungs much clearer to auscultation with better air movement today. Continues to have occasional expiratory wheezes with deep exhalation. Occasional rhonchi with coarse breath sounds throughout.) Cardiovascular: Regular Rate, Regular Rhythm, No Murmurs GI/Abdominal Exam: Normal Bowel Sounds, Soft, Non-Tender (Mildly tender diffusely, much less than yesterday.) Back Exam: Normal Inspection Extremities: Other (Unchanged. No pedal edema.) Psy/Mental Status: Alert, Normal Affect, Normal Mood - Problem List & Annotations (1) Aspiration pneumonia due to saliva SNOMED Code(s): 812506215 Code(s): J69.0 - PNEUMONITIS DUE TO INHALATION OF FOOD AND VOMIT Status: Acute Priority: High Current Visit: Yes Annotation/Comment:: Patient significantly improved. Likely will be ready for discharge tomorrow if he continues to social good improvement. We'll be able to discharge on oral Levaquin. (2) CAD (coronary artery disease) SNOMED Code(s): 78168790 Code(s): I25.10 - ATHSCL HEART DISEASE OF [place] CORONARY ARTERY W/O ANG PCTRS Status: Acute Current Visit: Yes Annotation/Comment:: No symptoms, continue monitoring. Cardiac monitoring shows paced rhythm with occasional PVCs. (3) Abdominal pain SNOMED Code(s): 12691005 Code(s): R10.9 - UNSPECIFIED ABDOMINAL PAIN Status: Acute Current Visit: Yes Annotation/Comment:: Much improved. Suspect related to paroxysmal coughing. No residual urine. (4) Warfarin anticoagulation SNOMED Code(s): 50456653 Code(s): Z79.01 - [facility] (CURRENT) USE OF ANTICOAGULANTS Status: Acute Current Visit: Yes Annotation/Comment:: Pharmacy continuing to dose. - Problem List Review Problem List Initiated/Reviewed/Updated: Yes - My Orders Last 24 Hours: My Active Orders 03/24/17 14:00 Timolol Maleate [Timoptic 0.5% Ophth Soln] 0 ml EYERT DAILY 03/24/17 15:15 Carboxymethylcellulos/Glycerin [Refresh Optive] 0 ml EYELF BID 03/24/17 16:00 Aspirin [Halfprin] 81 mg PO DAILY Tamsulosin [Flomax] 0.4 mg PO DAILY 03/24/17 18:00 atorvaSTATin [Lipitor] 40 mg PO WITHDINNER 03/24/17 21:00 Carvedilol [Coreg] 6.25 mg PO BID Latanoprost [Xalatan 0.005% Ophth Soln] 0 ml EYERT BEDTIME Pantoprazole [ProTONIX] 40 mg PO BEDTIME Ranitidine [Zantac] 150 mg PO BID 03/25/17 16:00 Warfarin [Coumadin] 5 mg PO 1600 03/26/17 08:45 INR,PT,PROTHROMBIN TIME [COAG] DAILY 03/27/17 08:45 INR,PT,PROTHROMBIN TIME [COAG] DAILY 03/28/17 08:45 INR,PT,PROTHROMBIN TIME [COAG] DAILY 03/29/17 08:45 INR,PT,PROTHROMBIN TIME [COAG] DAILY 03/30/17 08:45 INR,PT,PROTHROMBIN TIME [COAG] DAILY 03/31/17 08:45 INR,PT,PROTHROMBIN TIME [COAG] DAILY 04/01/17 08:45 INR,PT,PROTHROMBIN TIME [COAG] DAILY
[2017-03-25] MEDS ORDERED: Warfarin 5 MG Tab *PTOM PO SCH (16:00)
[2017-03-25] MEDS: atorvaSTATin 40 MG Tab *PTOM PO SCH (17:24)
[2017-03-25] MEDS: Latanoprost 0.005% Ophth Soln 2.5 ML Bottle *PTOM EYERT SCH (20:05)
[2017-03-25] MEDS ORDERED: Acetaminophen Soln 650 MG/20.3 ML UD Cup PO ONE (22:24)
[2017-03-25] MEDS ORDERED: Docusate Sodium 100 MG Cap PO STA (22:24)
[2017-03-26] MEDS: Albuterol/Ipratropium 3.0-0.5 MG/3 ML Neb Soln NEB SCH (07:34)
[2017-03-26] MEDS: Timolol Maleate 0.5% Ophth Soln 5 ML Bottle EYERT SCH (08:34)
[2017-03-26] MEDS: Tamsulosin 0.4 MG Cap.ER *PTOM PO SCH (08:34)
[2017-03-26] MEDS: Carvedilol 6.25 MG Tab *PTOM PO SCH (08:34)
[2017-03-26] MEDS: RANITIDINE 150 MG PO SCH (08:34)
[2017-03-26] MEDS: CARBOXYMETHYLCELLULOSE EYELF SCH (08:34)
[2017-03-26] MEDS: GLYCERIN 0.9% EYELF SCH (08:34)
[2017-03-26] MEDS: Aspirin 81 MG Tab.EC PO SCH (08:35)
[2017-03-26] MEDS: Clopidogrel 75 MG Tab *PTOM PO SCH (08:35)
--- NOTE | 2017-03-26 10:02 | PCM.DCSUM1 ---
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 After his hospitalization for stent placement, the patient noticed he started to develop a cough. It was somewhat insidious. Over time the cough has grown more severe, he's had increasing shortness of breath, and night prior to admission developed severe chills and abdominal pain. He was so uncomfortable he called the ambulance and they came into the emergency department. He felt very bloated and gassy, he was shivering and lightheaded. He was nauseated but had no vomiting. He does have typically loose stools first thing in the morning and then none throughout the rest of the day. This has not changed since 1982 when he had a colon resection due to polyps. He is on warfarin for atrial fibrillation and the emergency room physician was concerned about the possibility of PE since his warfarin was subtherapeutic at 1.87. CT chest did not show any evidence of PE but did show bilateral lower lobe infiltrates. The patient was recommended for admission due to his age, the unclear etiology of abdominal pain, and further treatment for pneumonia, possibly aspiration. Hospital course: Patient was started on levaquin and did very well with this. On the day of discharge, was off oxygen. No CP, no SOB. Abdominal pain was resolved and thought to be secondary to severe coughing. No N/V, no change in chronic loose stools. - Discharge Data Discharge Date: 03/26/17 Discharge Disposition: Home, Self-Care 01 Condition: Good - Discharge Diagnosis/Problem(s) (1) Aspiration pneumonia due to saliva SNOMED Code(s): 804431920 ICD Code: J69.0 - PNEUMONITIS DUE TO INHALATION OF FOOD AND VOMIT Status: Acute Priority: High Current Visit: Yes Problem Details: Significantly improved, now off oxygen and satting in the low 90s. Ready for dicharge, will discharge on 5 days total of PO levaquin, which he will have had his 3rd dose today. (2) CAD (coronary artery disease) SNOMED Code(s): 15518463 ICD Code: I25.10 - ATHSCL HEART DISEASE OF [place] CORONARY ARTERY W/O ANG PCTRS Status: Acute Current Visit: Yes Problem Details: No symptoms, continue monitoring. Cardiac monitoring shows paced rhythm with occasional PVCs. (3) Abdominal pain SNOMED Code(s): 00791204 ICD Code: R10.9 - UNSPECIFIED ABDOMINAL PAIN Status: Acute Current Visit : Yes Problem Details: Much improved. Suspect related to paroxysmal coughing. No residual urine. (4) Warfarin anticoagulation SNOMED Code(s): 08256991 ICD Code: Z79.01 - LONG-TERM (CURRENT) USE OF ANTICOAGULANTS Status: Acute Current Visit: Yes Problem Details: Will require follow up tomorrow as outpatient as continues to be subtherapeutic at this time. - Patient Summary/Data Consults: Consultations 03/24/17 08:45 OT Evaluation and Treatment [CONS] Routine Please Evaluate and Treat. OT Reason for Consult: sp cva This query below is only for informational purposes and is not editable. Admission Diagnosis/Problem: Acute bronchitis PT Evaluation and Treatment [CONS] Routine Please Evaluate and Treat. PT Reason for Consult: hx cva This query below is only for informational purposes and is not editable. Admission Diagnosis/Problem: Acute bronchitis Respiratory Care Assess and Treatment [CONS] Routine Comment: Physician Instructions: 03/24/17 09:02 Consult to Pharmacy [CONS] Routine Comment: Physician Instructions: Quantity: Reason for Consult: dose warfarin - Patient Instructions Diet: Heart Healthy Diet, GI Soft/Low Residue/Low Fiber Activity: Cough & Deep Breathe Notify Provider of: Fever (SOB) - Discharge Plan Prescriptions/Med Rec: Levofloxacin [Levaquin] 500 mg PO Q24H 2 Days #2 tablet Home Medications: Home Meds Acetaminophen [Tylenol] 650 mg PO TID PRN 03/24/17 [History] Calcium Carbonate/Vitamin D3 [Calcium 600-Vit D3 400 Tablet] 1 tab PO DAILY 08/05 [History] Carvedilol 6.25 mg PO BID 03/24/17 [History] Clopidogrel Bisulfate [Clopidogrel] 75 mg PO DAILY 03/24/17 [History] Dextran 70/Hypromellose [Artificial Tears] 1 drop EYELF BID 03/24/17 [History] Furosemide [Lasix] 20 mg PO DAILY PRN 03/24/17 [History] Latanoprost [Xalatan 0.005% Ophth Soln] 1 drop EYERT BEDTIME 03/24/17 [History] Lutein 20 mg PO DAILY 03/24/17 [History] Multivitamin [Multivitamins] 1 tab PO DAILY 03/24/17 [History] Nitroglycerin 0.4 mg SL ASDIRECTED PRN 03/24/17 [History] Pantoprazole [ProTONIX] 40 mg PO BEDTIME 03/24/17 [History] Ranitidine [Zantac] 150 mg PO BID 03/24/17 [History] Tamsulosin [Flomax] 0.4 mg PO DAILY 03/24/17 [History] Timolol Maleate [Timoptic 0.5% Ophth Soln] 1 drop EYERT DAILY 03/24/17 [History] Triamcinolone Acetonide [Triamcinolone Acetonide 0.1% Crm] 1 applic TOP BID 08/05 [History] atorvaSTATin [Lipitor] 40 mg PO DAILY 03/24/17 [History] hydrOXYzine HCl [hydrOXYzine] 25 mg PO Q8H PRN 03/24/17 [History] Albuterol/Ipratropium [DuoNeb 3.0-0.5 MG/3 ML] 3 ml NEB QIDRT neb 03/26/17 [Rx] Aspirin [Halfprin] 81 mg PO DAILY tab.ec 03/26/17 [Rx] Levofloxacin [Levaquin] 500 mg PO Q24H 2 Days #2 tablet 03/26/17 [Rx] Warfarin Sliding Scale [Coumadin Sliding Scale] 1 each PO ASDIRECTED tablet 10/05 [Rx] Warfarin [Coumadin] 5 mg PO .PHARMACY TO DOSE #0 03/26/17 [Rx] Warfarin [Coumadin] 5 mg PO 1600 tablet 03/26/17 [Rx] Other Amb Orders: Schedule Procedure [COMM] Time Frame: 1 Week, Location: Determined By Patient Referrals: Ellis Coleman MD [Primary Care Provider] - - Discharge Summary/Plan Comment DC Time >30 min.: Yes - Patient Data Vitals - Most Recent: Last Vital Signs Temp 36.7 C 03/26/17 08:22 Pulse 78 03/26/17 08:34 Resp 18 03/26/17 08:22 BP 112/76 03/26/17 08:34 Pulse Ox 93 L 03/26/17 09:45 Weight - Most Recent: 80.626 kg I&O - Last 24 hours: Intake & Output 03/25/17 03/26/17 03/26/17 23:59 06:59 14:59 Intake Total Balance Lab Results - Last 24 hrs: Laboratory Results - last 24 hr 03/26/17 Range/Units 06:20 PT 16.1 H (8.7-11.1) INR 1.58 H (0.89-1.13) Med Orders - Current: Current Medications Acetaminophen (Tylenol) 650 mg RECTAL Q4H PRN PRN Reason: Mild pain/fever Last Admin: 03/25/17 20:20 Dose: 650 mg Albuterol/Ipratropium (Duoneb 3.0-0.5 Mg/3 Ml) 3 ml NEB QIDRT [facility] Last Admin: 03/26/17 07:34 Dose: 3 ml Aspirin (Halfprin) 81 mg PO DAILY [facility] Last Admin: 03/26/17 08:35 Dose: 81 mg Atorvastatin Calcium (Lipitor) 40 mg PO WITHDINNER [facility] Last Admin: 03/25/17 17:24 Dose: 40 mg Carboxymethylcellulose (Refresh Optive) 0 ml EYELF BID [facility] Last Admin: 03/26/17 08:34 Dose: 1 drop Carvedilol (Coreg) 6.25 mg PO BID [facility] Last Admin: 03/26/17 08:34 Dose: 6.25 mg Clopidogrel Bisulfate (Plavix) 75 mg PO DAILY [facility] Last Admin: 03/26/17 08:35 Dose: 75 mg Latanoprost (Xalatan 0.005% Ophth Soln) 0 ml EYERT BEDTIME [facility] Last Admin: 03/25/17 20:05 Dose: 1 drop Levofloxacin (Levaquin) 500 mg PO Q24H [facility] Stop: 03/28/17 10:01 Last Admin: 03/25/17 11:01 Dose: 500 mg Non-Formulary Medication 1 Each ( Ranitidine [Zantac] 150 Mg) *Ptom 150 mg PO BID [facility] Last Admin: 03/26/17 08:34 Dose: 150 mg Pantoprazole Sodium (Protonix) 40 mg PO BEDTIME [facility] Last Admin: 03/25/17 20:05 Dose: 40 mg Sodium Chloride (Saline Flush) 10 ml FLUSH ASDIRECTED PRN PRN Reason: Keep Vein Open Last Admin: 03/24/17 09:00 Dose: 10 ml Sodium Chloride (Saline Flush) 10 ml FLUSH ASDIRECTED PRN PRN Reason: Keep Vein Open Tamsulosin HCl (Flomax) 0.4 mg PO DAILY [facility] Last Admin: 03/26/17 08:34 Dose: 0.4 mg Timolol Maleate (Timoptic 0.5% Ophth Soln) 0 ml EYERT DAILY [facility] Last Admin: 03/26/17 08:34 Dose: 1 drop Warfarin Sodium (Coumadin Sliding Scale) 1 each PO ASDIRECTED [facility] Warfarin Sodium (Coumadin) 5 mg PO 1600 [facility] Stop: 03/26/17 16:01 Discontinued Medications Acetaminophen (Tylenol) 650 mg PO ONETIME ONE Stop: 03/25/17 22:25 Docusate Sodium (Colace) 100 mg PO ONETIME STA Stop: 03/25/17 22:25 Last Admin: 03/25/17 22:41 Dose: 100 mg Iopamidol (Isovue-370 (76%)) 100 ml IV . DIRECTED ONE Stop: 03/24/17 05:29 Last Admin: 03/24/17 05:41 Dose: 100 ml Warfarin Sodium (Coumadin) 2.5 mg PO 1600 [facility] Stop: 03/24/17 16:01 Last Admin: 03/24/17 17:44 Dose: 2.5 mg Warfarin Sodium (Coumadin) 5 mg PO 1600 [facility] Stop: 03/25/17 18:00 Last Admin: 03/25/17 15:52 Dose: 5 mg - Exam General: Reports: Alert, Oriented, Cooperative HEENT: Reports: Pupils Equal, Pupils Reactive Neck: Reports: Supple Lungs: Reports: Clear to Auscultation, Normal Respiratory Effort, Decreased Breath Sounds Cardiovascular: Reports: Regular Rate, Regular Rhythm, Murmurs GI/Abdominal Exam: Normal Bowel Sounds, Soft, Non-Tender, No Distention Back Exam: Reports: Normal Inspection Extremities: No Pedal Edema Skin: Reports: Warm, Dry *Q Meaningful Use (DIS) - VTE *Q VTE Criteria *Q: - Stroke *Q Stroke Criteria *Q: - AMI *Q AMI Criteria *Q:
[2017-03-26] MEDS: Levofloxacin 500 MG Tab PO SCH (10:22)
[2017-03-26] MEDS ORDERED: Warfarin 5 MG Tab *PTOM PO SCH (16:00)
== END 2017-03-26 11:15 | disposition home or self-care (01) ==
LOC: FB.ED 02:21 → FB.MS 07:26
PROVIDERS: ADMIT Emergency Medicine; ATTEND Family Medicine
DX: J69.0 Pneumonitis due to inhalation of food and vomit (principal); I25.10 Atherosclerotic heart disease of native coronary artery without angina pectoris; R10.9 Unspecified abdominal pain; K21.9 Gastro-esophageal reflux disease without esophagitis; E78.5 Hyperlipidemia, unspecified; N40.0 Benign prostatic hyperplasia without lower urinary tract symptoms; G47.33 Obstructive sleep apnea (adult) (pediatric); I63.9 Cerebral infarction, unspecified; Z79.01 Long term (current) use of anticoagulants; Z79.82 Long term (current) use of aspirin; Z79.899 Other long term (current) drug therapy; Z88.8 Allergy status to other drugs, medicaments and biological substances; Z95.0 Presence of cardiac pacemaker; Z87.891 Personal history of nicotine dependence; Z95.5 Presence of coronary angioplasty implant and graft
CPT/HCPCS: 36415; 71010; 71275; 74000; 80053; 81001; 82803; 83605; 83880; 84484; 85025; 85379; 85610; 86140; 87040; 87070; 87205; 93005; 94150; 94640; 99285; A9270; G0378; J7050; J7620; Q9967; 99217; 99220; 99225

== ENCOUNTER 2017-05-24 16:02 | Inpatient (IN) | payer MEDICARE, OTHER ==
--- NOTE | 2017-05-24 16:19 | EDM.PDOC ---
ED HPI GENERAL MEDICAL PROBLEM - General Chief Complaint: Respiratory Problem Stated Complaint: FLUE LIKE SYMPTOMS Time Seen by Provider: 05/24/17 16:02 Source of Information: Reports: Patient, Family History Limitations: Reports: Altered Mental Status - History of Present Illness INITIAL COMMENTS - FREE TEXT/NARRATIVE: 86 y.o.w.m with a CVA in 02/2016, came by PC with family this pm because he could not ambulate since last night. He is not able to ambulate since 8 pm last night. Pt is a poor historian. HPI was given by his daughter. 124/75 pulse 78 Pulse ox 96% on RA temp 37.1 Onset Date: 05/22/17 Onset Time: 04:00 Duration: Day(s):, Getting Worse Location: Reports: Generalized Left Shoulder Pain Score (Numeric/FACES): 5 - Related Data Allergies Allergy/AdvReac Type Severity Reaction Status Date / Time acetaminophen [From Tylox] Allergy Unknown Cannot Verified 05/24/17 16:15 Remember codeine Allergy Unknown Cannot Verified 05/24/17 16:15 Remember oxycodone HCl [From Tylox] Allergy Unknown Cannot Verified 05/24/17 16:15 Remember Home Meds: Home Meds Acetaminophen [Tylenol] 650 mg PO TID PRN 03/24/17 [History] Calcium Carbonate/Vitamin D3 [Calcium 600-Vit D3 400 Tablet] 1 tab PO DAILY 08/05 [History] Carvedilol 6.25 mg PO BID 03/24/17 [History] Clopidogrel Bisulfate [Clopidogrel] 75 mg PO DAILY 03/24/17 [History] Dextran 70/Hypromellose [Artificial Tears] 1 drop EYELF BID 03/24/17 [History] Furosemide [Lasix] 20 mg PO DAILY PRN 03/24/17 [History] Latanoprost [Xalatan 0.005% Ophth Soln] 1 drop EYERT BEDTIME 03/24/17 [History] Lutein 20 mg PO DAILY 03/24/17 [History] Multivitamin [Multivitamins] 1 tab PO DAILY 03/24/17 [History] Nitroglycerin 0.4 mg SL ASDIRECTED PRN 03/24/17 [History] Ranitidine [Zantac] 150 mg PO BEDTIME 03/24/17 [History] Tamsulosin [Flomax] 0.4 mg PO DAILY 03/24/17 [History] Timolol Maleate [Timoptic 0.5% Ophth Soln] 1 drop EYERT DAILY 03/24/17 [History] Triamcinolone Acetonide [Triamcinolone Acetonide 0.1% Crm] 1 applic TOP BID 08/05 [History] atorvaSTATin [Lipitor] 40 mg PO BEDTIME 03/24/17 [History] Aspirin [Halfprin] 81 mg PO DAILY tab.ec 03/26/17 [Rx] Albuterol/Ipratropium [DuoNeb 3.0-0.5 MG/3 ML] 3 ml IH QID PRN 05/25/17 [History ] Omeprazole 20 mg PO DAILY 05/25/17 [History] Warfarin [Coumadin] 2.5 mg PO [id number] 05/25/17 [History] Warfarin [Coumadin] 5 mg PO MO 05/25/17 [History] Past Medical History HEENT History: Reports: Other (See Below) 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 Other Cardiovascular History: HEART BLOCK Respiratory History: Reports: Bronchitis, Recurrent, SOB Musculoskeletal History: Reports: Osteoarthritis Neurological History: Reports: CVA - Past Surgical History Cardiovascular Surgical History: Reports: Coronary Artery Stent Other Respiratory Surgeries/Procedures: READ THE REFERAL PAPERS SENT FROM [place] FOR FURTHER HISTORY Other GI Surgeries/Procedures: UNABLE TO DO DUE TO PT CONFUSED Social & Family History - Family History Family Medical History: Noncontributory - Tobacco Use Smoking Status *Q: Former Smoker Used Tobacco, but Quit: Yes Month Tobacco Last Used: / Second Hand Smoke Exposure: No - Caffeine Use Caffeine Use: Reports: None - Recreational Drug Use Recreational Drug Use: No ED ROS GENERAL - Review of Systems Review Of Systems: Unable To Obtain ED EXAM, GENERAL - Physical Exam Exam: See Below Exam Limited By: Physical Impairment General Appearance: Alert, WD/WN, Mild Distress Eye Exam: Bilateral Eye: Normal Inspection Ears: Normal External Exam Ear Exam: Bilateral Ear: Auricle Normal Nose: Normal Inspection, Normal Mucosa, No Blood Throat/Mouth: Normal Inspection, Normal Lips Head: Atraumatic, Normocephalic Neck: Normal Inspection, Supple, Non-Tender, Full Range of Motion Respiratory/Chest: Decreased Breath Sounds (poor insp efforts), Wheezing, Other Cardiovascular: Regular Rate, Rhythm (100% ventricular paced) GI/Abdominal: Normal Bowel Sounds, Soft, Non-Tender, No Organomegaly (Male) Exam: Deferred Rectal (Males) Exam: Deferred Back Exam: Normal Inspection, Full Range of Motion Extremities: Normal Inspection, Normal Range of Motion, Non-Tender, No Pedal Edema, Normal Capillary Refill Neurological: Alert, CN II-XII Intact, Memory Loss Remote Events, Memory Loss Recent Events, Abnormal Gait Psychiatric: Normal Affect, Normal Mood Skin Exam: Warm, Dry, Intact, Normal Color, No Rash EKG INTERPRETATION EKG Date: 05/24/17 Time: 16:25 Rhythm: Other (ventricular paced) Rate (Beats/Min): 89 [place]: Normal P-Wave: Absent QRS: Normal ST-T: Normal QT: Prolonged Comparison: NA - No Prior EKG Course - Vital Signs Text/Narrative:: 86 y.o.w.m with a CVA in 02/2016, came by PC with family this pm because he could not ambulate since last night. He is not able to ambulate since 8 pm last night. Pt is a poor historian. HPI was given by his daughter. 124/75 pulse 78 Pulse ox 96% on RA temp 37.1 PE: Ataxia. Labs: INR 2.25 Lactic acid 0.9 Imaging: CT head: New CVA on top of an old CVA with edema right temp and parietal brain. No bleed. Impression: CVA, unable to ambulate, Asthma, H/O pneumonia. Code status not clear. 100% Ventricular paced. Tx: NS,Duoneb Plan: Admit to [facility] for [facility]BS Last Recorded V/S: Last Vital Signs Temp 36.5 C 05/26/17 04:00 Pulse 80 05/26/17 07:50 Resp 20 05/26/17 04:00 BP 115/67 05/26/17 04:00 Pulse Ox 96 05/26/17 07:50 - Orders/Labs/Meds Orders: Active Orders 24 hr Category Date Time Status Acetaminophen [Tylenol] Med 05/25/17 09:11 Active 650 mg PO TID PRN Albuterol/Ipratropium [DuoNeb 3.0-0.5 MG/3 ML] Med 05/25/17 11:00 Active 3 ml NEB QIDRT Aspirin [Halfprin] Med 05/25/17 09:00 Active 81 mg PO DAILY Clopidogrel [Plavix] Med 05/25/17 09:00 Active 75 mg PO DAILY Furosemide [Lasix] Med 05/25/17 09:11 Active 20 mg PO DAILY PRN Latanoprost [Xalatan 0.005% Ophth Soln] Med 05/25/17 21:00 Active 0 ml EYERT BEDTIME Levofloxacin/Dextrose 5%-Water [Levaquin in D5W 750 MG/ Med 05/25/17 20:00 Active 150 ML] 750 mg Premix Bag 1 bag IV Q24H Multivitamins [Tab-A-Karolyn] Med 05/25/17 10:30 Active 1 tab PO DAILY Nitroglycerin [Nitrostat] Med 05/25/17 09:11 Active 0.4 mg SL ASDIRECTED PRN Pantoprazole [ProTONIX] Med 05/25/17 09:00 Active 40 mg PO DAILY@0600 Tamsulosin [Flomax] Med 05/25/17 09:00 Active 0.4 mg PO DAILY Timolol Maleate [Timoptic 0.5% Ophth Soln] Med 05/25/17 09:00 Active 0 ml EYERT DAILY Warfarin [Coumadin] Med 05/29/17 16:00 Active 5 mg PO Mo@1600 atorvaSTATin [Lipitor] Med 05/25/17 21:00 Active 40 mg PO BEDTIME Medication Orders Acetaminophen (Tylenol) 650 mg PO Q4H PRN PRN Reason: Fever Last Admin: 05/25/17 23:54 Dose: 650 mg Admin: 05/24/17 19:43 Dose: 650 mg Acetaminophen (Tylenol) 650 mg PO TID PRN PRN Reason: Pain Albuterol (Proventil Neb Soln) 2.5 mg NEB Q2H PRN PRN Reason: Shortness Of Breath/wheezing Last Admin: 05/25/17 08:49 Dose: 2.5 mg Admin: 05/24/17 18:03 Dose: 2.5 mg Albuterol/Ipratropium (Duoneb 3.0-0.5 Mg/3 Ml) 3 ml NEB QIDRT ADRIÁN Last Admin: 05/26/17 07:36 Dose: 3 ml Admin: 05/25/17 20:09 Dose: 3 ml Admin: 05/25/17 15:09 Dose: 3 ml Admin: 05/25/17 12:31 Dose: 3 ml Aspirin (Halfprin) 81 mg PO DAILY [facility] Last Admin: 05/26/17 09:28 Dose: 81 mg Admin: 05/25/17 10:41 Dose: 81 mg Atorvastatin Calcium (Lipitor) 40 mg PO BEDTIME [facility] Last Admin: 05/25/17 20:09 Dose: 40 mg Carvedilol (Coreg) 3.25 mg PO BIDMEALS [facility] Clopidogrel Bisulfate (Plavix) 75 mg PO DAILY [facility] Last Admin: 05/26/17 09:28 Dose: 75 mg Admin: 05/25/17 10:41 Dose: 75 mg Furosemide (Lasix) 20 mg PO DAILY PRN PRN Reason: Edema Sodium Chloride (Normal Saline) 250 mls @ 100 mls/hr IV ASDIRECTED [facility] Last Admin: 05/24/17 21:25 Dose: 100 mls/hr Levofloxacin/Dextrose 750 mg/ (Premix) 150 mls @ 100 mls/hr IV Q24H [facility] Stop: 05/29/17 21:29 Last Admin: 05/25/17 20:09 Dose: 100 mls/hr Ibuprofen (Motrin) 600 mg PO Q6H PRN PRN Reason: Fever Last Admin: 05/25/17 12:59 Dose: 600 mg Admin: 05/25/17 02:04 Dose: 600 mg Latanoprost (Xalatan 0.005% Oph Soln) 0 ml EYERT BEDTIME [facility] Last Admin: 05/25/17 20:11 Dose: 1 drop Multivitamins/Minerals/Vitamin C (Tab-A-Karolyn) 1 tab PO DAILY [facility] Last Admin: 05/26/17 09:28 Dose: 1 tab Admin: 05/25/17 10:41 Dose: 1 tab Nitroglycerin (Nitrostat) 0.4 mg SL ASDIRECTED PRN PRN Reason: Chest Pain Ondansetron HCl (Zofran) 4 mg IV Q4H PRN PRN Reason: Nausea/Vomiting Oseltamivir Phosphate (Tamiflu) 75 mg PO BID [facility] Stop: 05/29/17 21:01 Last Admin: 05/26/17 09:29 Dose: 75 mg Admin: 05/25/17 20:12 Dose: 75 mg Admin: 05/25/17 10:41 Dose: 75 mg Pantoprazole Sodium (Protonix) 40 mg PO DAILY@0600 [facility] Last Admin: 05/26/17 06:32 Dose: 40 mg Admin: 05/25/17 10:41 Dose: 40 mg Propylene Glycol (Systane Lubricant) 0 ml EYELF BID [facility] Last Admin: 05/26/17 09:28 Dose: 1 drop Admin: 05/25/17 20:11 Dose: 1 drop Admin: 05/25/17 10:42 Dose: 1 drop Sodium Chloride (Saline Flush) 10 ml FLUSH ASDIRECTED PRN PRN Reason: Keep Vein Open Last Admin: 05/25/17 08:45 Dose: 10 ml Admin: 05/24/17 22:54 Dose: 10 ml Tamsulosin HCl (Flomax) 0.4 mg PO DAILY [facility] Last Admin: 05/25/17 10:42 Dose: 0.4 mg Timolol Maleate (Timoptic 0.5% Ophth Soln) 0 ml EYERT DAILY [facility] Last Admin: 05/26/17 09:29 Dose: 1 drop Admin: 05/25/17 10:42 Dose: 1 drop Warfarin Sodium (Coumadin) 5 mg PO Mo@1600 [facility] Labs: Laboratory Tests 05/24/17 05/24/17 05/24/17 Range/Units 16:30 16:30 16:30 WBC 4.8 (4.5-12.0) X10-3/uL RBC 4.17 L (4.30-5.75) x10(6)uL Hgb 13.0 (11.5-15.5) g/dL Hct 38.7 (30.0-51.3) % MCV 92.7 (80-96) fL MCH 31.1 (27.7-33.6) pg MCHC 33.5 (32.2-35.4) g/dL RDW 14.3 (11.5-15.5) % Plt Count 151 (125-369) X10(3)uL MPV 8.2 (7.4-10.4) fL Neut % (Auto) 77.5 (46-82) % Lymph % (Auto) 9.1 L (13-37) % [place] % (Auto) 9.5 (4-12) % Eos % (Auto) 3 (1.0-5.0) % Baso % (Auto) 1 (0-2) % Neut # (Auto) 3.7 (1.6-8.3) # Lymph # (Auto) 0.4 L (0.6-5.0) # [place] # (Auto) 0.5 (0.0-1.3) # Eos # (Auto) 0.2 (0.0-0.8) # Baso # (Auto) 0.0 (0.0-0.2) # Add Manual Diff Neutrophils % (Manual) (46-82) % Lymphocytes % (Manual) (13-37) % Monocytes % (Manual) (4-12) % Eosinophils % (Manual) (0-5) % PT 26.5 H (8.7-11.1) INR 2.57 H (0.89-1.13) Sodium 143 (135-145) mmol/L Potassium 4.1 (3.5-5.3) mmol/L Chloride 104 (100-110) mmol/L Carbon Dioxide 33 H (21-32) mmol/L BUN 12 (7-18) mg/dL Creatinine 1.0 (0.70-1.30) mg/dL Est Cr Clr Drug Dosing TNP Estimated GFR (MDRD) > 60 (>60) BUN/Creatinine Ratio 12.0 (9-20) Glucose 100 (80-116) mg/dL Lactic Acid (0.4-2.2) mmol/L Calcium 8.9 (8.6-10.2) mg/dL Total Bilirubin (0.1-1.3) mg/dL AST (5-25) IU/L ALT (12-36) U/L Alkaline Phosphatase (56-112) IU/L Troponin I (<0.017-0.056) ng/mL Total Protein (6.0-8.0) g/dL Albumin (3.2-4.6) g/dL Globulin g/dL Albumin/Globulin Ratio Urine Color (YELLOW) Urine Appearance (CLEAR) Urine pH (5.0-6.5) Ur Specific [place] (1.010-1.025) Urine Protein (NEGATIVE) mg/dL Urine Glucose (UA) (NEGATIVE) mg/dL Urine Ketones (NEGATIVE) mg/dL Urine Occult Blood (NEGATIVE) Urine Nitrite (NEGATIVE) Urine Bilirubin (NEGATIVE) Urine Urobilinogen (NEGATIVE) mg/dL Ur Leukocyte Esterase (NEGATIVE) Urine RBC (0) Urine WBC (0) Ur Squamous Epith Cells (NS,R,O) Urine Bacteria (NS) 05/24/17 05/24/17 05/25/17 Range/Units 16:30 16:30 01:30 WBC (4.5-12.0) X10-3/uL RBC (4.30-5.75) x10(6)uL Hgb (11.5-15.5) g/dL Hct (30.0-51.3) % MCV (80-96) fL MCH (27.7-33.6) pg MCHC (32.2-35.4) g/dL RDW (11.5-15.5) % Plt Count (125-369) X10(3)uL MPV (7.4-10.4) fL Neut % (Auto) (46-82) % Lymph % (Auto) (13-37) % [place] % (Auto) (4-12) % Eos % (Auto) (1.0-5.0) % Baso % (Auto) (0-2) % Neut # (Auto) (1.6-8.3) # Lymph # (Auto) (0.6-5.0) # [place] # (Auto) (0.0-1.3) # Eos # (Auto) (0.0-0.8) # Baso # (Auto) (0.0-0.2) # Add Manual Diff Neutrophils % (Manual) (46-82) % Lymphocytes % (Manual) (13-37) % Monocytes % (Manual) (4-12) % Eosinophils % (Manual) (0-5) % PT (8.7-11.1) INR (0.89-1.13) Sodium (135-145) mmol/L Potassium (3.5-5.3) mmol/L Chloride (100-110) mmol/L Carbon Dioxide (21-32) mmol/L BUN (7-18) mg/dL Creatinine (0.70-1.30) mg/dL Est Cr Clr Drug Dosing Estimated GFR (MDRD) (>60) BUN/Creatinine Ratio (9-20) Glucose (80-116) mg/dL Lactic Acid 0.9 (0.4-2.2) mmol/L Calcium (8.6-10.2) mg/dL Total Bilirubin (0.1-1.3) mg/dL AST (5-25) IU/L ALT (12-36) U/L Alkaline Phosphatase (56-112) IU/L Troponin I < 0.017 L (<0.017-0.056) ng/mL Total Protein (6.0-8.0) g/dL Albumin (3.2-4.6) g/dL Globulin g/dL Albumin/Globulin Ratio Urine Color Yellow (YELLOW) Urine Appearance Clear (CLEAR) Urine pH 8.0 H (5.0-6.5) Ur Specific [place] 1.015 (1.010-1.025) Urine Protein Negative (NEGATIVE) mg/dL Urine Glucose (UA) Normal (NEGATIVE) mg/dL Urine Ketones Negative (NEGATIVE) mg/dL Urine Occult Blood Negative (NEGATIVE) Urine Nitrite Negative (NEGATIVE) Urine Bilirubin Negative (NEGATIVE) Urine Urobilinogen Normal (NEGATIVE) mg/dL Ur Leukocyte Esterase Negative (NEGATIVE) Urine RBC 0-5 (0) Urine WBC 0-5 (0) Ur Squamous Epith Cells Rare (NS,R,O) Urine Bacteria Few H (NS) 05/25/17 05/25/17 Range/Units 06:20 06:20 WBC 4.1 L (4.5-12.0) X10-3/uL RBC 3.95 L (4.30-5.75) x10(6)uL Hgb 12.1 (11.5-15.5) g/dL Hct 36.4 (30.0-51.3) % MCV 92.0 (80-96) fL MCH 30.6 (27.7-33.6) pg MCHC 33.3 (32.2-35.4) g/dL RDW 14.0 (11.5-15.5) % Plt Count 130 (125-369) X10(3)uL MPV 8.3 (7.4-10.4) fL Neut % (Auto) (46-82) % Lymph % (Auto) (13-37) % [place] % (Auto) (4-12) % Eos % (Auto) (1.0-5.0) % Baso % (Auto) (0-2) % Neut # (Auto) (1.6-8.3) # Lymph # (Auto) (0.6-5.0) # [place] # (Auto) (0.0-1.3) # Eos # (Auto) (0.0-0.8) # Baso # (Auto) (0.0-0.2) # Add Manual Diff Yes Neutrophils % (Manual) 68 (46-82) % Lymphocytes % (Manual) 20 (13-37) % Monocytes % (Manual) 7 (4-12) % Eosinophils % (Manual) 5 (0-5) % PT (8.7-11.1) INR (0.89-1.13) Sodium 141 (135-145) mmol/L Potassium 3.8 (3.5-5.3) mmol/L Chloride 104 (100-110) mmol/L Carbon Dioxide 30 (21-32) mmol/L BUN 10 (7-18) mg/dL Creatinine 1.0 (0.70-1.30) mg/dL Est Cr Clr Drug Dosing 52.25 Estimated GFR (MDRD) > 60 (>60) BUN/Creatinine Ratio 10.0 (9-20) Glucose 85 (80-116) mg/dL Lactic Acid (0.4-2.2) mmol/L Calcium 8.5 L (8.6-10.2) mg/dL Total Bilirubin 0.5 (0.1-1.3) mg/dL AST 17 (5-25) IU/L ALT 18 (12-36) U/L Alkaline Phosphatase 67 (56-112) IU/L Troponin I (<0.017-0.056) ng/mL Total Protein 5.7 L (6.0-8.0) g/dL Albumin 2.6 L (3.2-4.6) g/dL Globulin 3.1 g/dL Albumin/Globulin Ratio 0.8 Urine Color (YELLOW) Urine Appearance (CLEAR) Urine pH (5.0-6.5) Ur Specific [place] (1.010-1.025) Urine Protein (NEGATIVE) mg/dL Urine Glucose (UA) (NEGATIVE) mg/dL Urine Ketones (NEGATIVE) mg/dL Urine Occult Blood (NEGATIVE) Urine Nitrite (NEGATIVE) Urine Bilirubin (NEGATIVE) Urine Urobilinogen (NEGATIVE) mg/dL Ur Leukocyte Esterase (NEGATIVE) Urine RBC (0) Urine WBC (0) Ur Squamous Epith Cells (NS,R,O) Urine Bacteria (NS) Meds: Medications Generic Name Dose Route Start Last Admin Trade Name Freq PRN Reason Stop Dose Admin Acetaminophen 650 mg 05/24/17 18:58 05/25/17 23:54 Tylenol PO 650 mg Q4H PRN Administration Fever Acetaminophen 650 mg 05/25/17 09:11 Tylenol PO TID PRN Pain Albuterol 2.5 mg 05/24/17 17:27 05/25/17 08:49 Proventil Neb Soln NEB 2.5 mg Q2H PRN Administration Shortness Of Breath/wheezing Albuterol/Ipratropium 3 ml 05/25/17 11:00 05/26/17 07:36 Duoneb 3.0-0.5 Mg/3 Ml NEB 3 ml QIDRT ADRIÁN Administration Aspirin 81 mg 05/25/17 09:00 05/26/17 09:28 Halfprin PO 81 mg DAILY ADRIÁN Administration Atorvastatin Calcium 40 mg 05/25/17 21:00 05/25/17 20:09 Lipitor PO 40 mg BEDTIME ADRIÁN Administration Carvedilol 3.25 mg 05/26/17 09:19 Coreg PO BIDMEALS [facility] Clopidogrel Bisulfate 75 mg 05/25/17 09:00 05/26/17 09:28 Plavix PO 75 mg DAILY ADRIÁN Administration Furosemide 20 mg 05/25/17 09:11 Lasix PO DAILY PRN Edema Sodium Chloride 250 mls @ 100 mls/hr 05/24/17 21:30 05/24/17 21:25 Normal Saline IV 100 mls/hr ASDIRECTED ADRIÁN Administration Levofloxacin/Dextrose 750 mg/ 150 mls @ 100 mls/hr 05/25/17 20:00 05/25/17 20 :09 Premix IV 05/29/17 21:29 100 mls/hr Q24H ADRIÁN Administration Ibuprofen 600 mg 05/24/17 20:44 05/25/17 12:59 Motrin PO 600 mg Q6H PRN Administration Fever Latanoprost 0 ml 05/25/17 21:00 05/25/17 20:11 Xalatan 0.005% Ophth Soln EYERT 1 drop BEDTIME ADRIÁN Administration Multivitamins/Minerals/Vitamin C 1 tab 05/25/17 10:30 05/26/17 09:28 Tab-A-Karolyn PO 1 tab DAILY ADRIÁN Administration Nitroglycerin 0.4 mg 05/25/17 09:11 Nitrostat SL ASDIRECTED PRN Chest Pain Ondansetron HCl 4 mg 05/24/17 17:27 Zofran IV Q4H PRN Nausea/Vomiting Oseltamivir Phosphate 75 mg 05/25/17 10:00 05/26/17 09:29 Tamiflu PO 05/29/17 21:01 75 mg BID ADRIÁN Administration Pantoprazole Sodium 40 mg 05/25/17 09:00 05/26/17 06:32 Protonix PO 40 mg DAILY@0600 ADRIÁN Administration Propylene Glycol 0 ml 05/25/17 10:00 05/26/17 09:28 Systane Lubricant EYELF 1 drop BID ADRIÁN Administration Sodium Chloride 10 ml 05/24/17 16:14 05/25/17 08:45 Saline Flush FLUSH 10 ml ASDIRECTED PRN Administration Keep Vein Open Tamsulosin HCl 0.4 mg 05/25/17 09:00 05/25/17 10:42 Flomax PO 0.4 mg DAILY ADRIÁN Administration Timolol Maleate 0 ml 05/25/17 09:00 05/26/17 09:29 Timoptic 0.5% Ophth Soln EYERT 1 drop DAILY ADRIÁN Administration Warfarin Sodium 5 mg 05/29/17 16:00 Coumadin PO Mo@1600 ADRIÁN Discontinued Medications Generic Name Dose Route Start Last Admin Trade Name Freq PRN Reason Stop Dose Admin Carvedilol 6.25 mg 05/25/17 09:00 05/25/17 10:41 Coreg PO 6.25 mg BIDMEALS ADRIÁN Administration Levofloxacin/Dextrose 500 mg/ 100 mls @ 100 mls/hr 05/24/17 20:44 05/24/17 21 :25 Premix IV 05/24/17 21:43 100 mls/hr ONETIME ONE Administration Departure - Departure Time of Disposition: 19:00 Disposition: Refer to Observation Condition: Fair Clinical Impression: CVA (cerebral vascular accident) - Discharge Information
[2017-05-24] MEDS ORDERED: Ondansetron 4 MG/2 ML SDV IV PRN (17:27)
[2017-05-24] MEDS: Albuterol 0.083% 2.5 MG/3 ML Neb Soln NEB PRN (18:03)
[2017-05-24] MEDS: Acetaminophen 325 MG Tab PO PRN (19:43)
[2017-05-24] MEDS ORDERED: Levofloxacin/Dextrose 5%-Water 500 MG in Premix Bag 1 BAG IV ONE (20:44)
[2017-05-24] MEDS ORDERED: Sodium Chloride 0.9% 250 ML IV SCH (21:30)
[2017-05-24] MEDS: Sodium Chloride 0.9% 10 ML Syringe FLUSH PRN (22:54)
[2017-05-25] MEDS: Ibuprofen 600 MG Tab PO PRN ×2 (02:04→12:59)
[2017-05-25] MEDS: Sodium Chloride 0.9% 10 ML Syringe FLUSH PRN (08:45)
[2017-05-25] MEDS: Albuterol 0.083% 2.5 MG/3 ML Neb Soln NEB PRN (08:49)
--- NOTE | 2017-05-25 08:51 | CT ---
INDICATION: Left-sided weakness, increased confusion, occipital headache x1 week. CT HEAD WITHOUT CONTRAST: Serial contiguous 2.5 and 5-mm sections were obtained through the brain without contrast 05/24/2017, and compared with 2009 examination. Total Exam DLP = 949.36 mGy-cm. Calcification is noted in the right vertebral artery and in the internal carotid arteries. The patient moved during the examination producing hard beam artifact. Compared with the previous study, there is now a large area of decreased density noted in the right temporal lobe and right parietal lobe. 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 The lateral ventricles are increased in size compared with the previous examination, compatible with progressive central atrophy. There also appears to be a minimal shift to the right, suggesting that at least some of the changes seen in the right parietal and temporal lobes are due to encephalomalacia, rather than simply an acute thrombotic CVA. No evidence of a bleeding site or hematoma was identified. A minimal area of thickening of the lining of the right maxillary antrum is noted. There are some partially opacified left anterior ethmoidal air cells and one on the right with thickened lining suggested. Frontal and mastoid air cells were otherwise well aerated. No specific cranial abnormality was identified. 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 With the shift and slightly larger right lateral ventricle, at least a portion of the area of decreased density on the right may be on the basis of encephalomalacia from a previous thrombotic CVA. No bleeding site or hematoma was seen. Report was called to Dr. Garcia at 1703 hours, 05/24/2017. HANNAHD
[2017-05-25] MEDS ORDERED: Nitroglycerin 0.4 MG Tab.SL SL PRN (09:11)
[2017-05-25] MEDS ORDERED: Furosemide 20 MG Tab PO PRN (09:11)
--- NOTE | 2017-05-25 09:32 | PCM.HP ---
H&P History of Present Illness - General Date of Service: 05/25/17 - History of Present Illness Initial Comments - Free Text/Narative: 86-year-old gentleman comes in with increasing debility malaise, shortness of breath dyspnea on exertion increased cough and congestion. Also noting wheezing intermittently. Symptoms ongoing for the last 3 or 4 days. Sudden onset. Denies chest pain or pressure no neck or jaw pain. Has not had any vomiting but did have some nausea. He denies any headache tinnitus vision change difficulty chewing or swallowing back pain or flank pain abdominal pain epigastric pain decreased urination hematuria dysuria or skin lesions. No ill contacts that he is aware of and no recent travel history. He did have a significant get- together over the holidays with numerous family. Left Shoulder Pain Score (Numeric/FACES): 5 - Related Data Allergies/Adverse Reactions: Allergies Allergy/AdvReac Type Severity Reaction Status Date / Time acetaminophen [From Tylox] Allergy Unknown Cannot Verified 05/24/17 16:15 Remember codeine Allergy Unknown Cannot Verified 05/24/17 16:15 Remember oxycodone HCl [From Tylox] Allergy Unknown Cannot Verified 05/24/17 16:15 Remember Home Medications: Home Meds Acetaminophen [Tylenol] 650 mg PO TID PRN 03/24/17 [History] Calcium Carbonate/Vitamin D3 [Calcium 600-Vit D3 400 Tablet] 1 tab PO DAILY 08/05 [History] Carvedilol 6.25 mg PO BID 03/24/17 [History] Clopidogrel Bisulfate [Clopidogrel] 75 mg PO DAILY 03/24/17 [History] Dextran 70/Hypromellose [Artificial Tears] 1 drop EYELF BID 03/24/17 [History] Furosemide [Lasix] 20 mg PO DAILY PRN 03/24/17 [History] Latanoprost [Xalatan 0.005% Ophth Soln] 1 drop EYERT BEDTIME 03/24/17 [History] Lutein 20 mg PO DAILY 03/24/17 [History] Multivitamin [Multivitamins] 1 tab PO DAILY 03/24/17 [History] Nitroglycerin 0.4 mg SL ASDIRECTED PRN 03/24/17 [History] Ranitidine [Zantac] 150 mg PO BEDTIME 03/24/17 [History] Tamsulosin [Flomax] 0.4 mg PO DAILY 03/24/17 [History] Timolol Maleate [Timoptic 0.5% Ophth Soln] 1 drop EYERT DAILY 03/24/17 [History] Triamcinolone Acetonide [Triamcinolone Acetonide 0.1% Crm] 1 applic TOP BID 08/05 [History] atorvaSTATin [Lipitor] 40 mg PO BEDTIME 03/24/17 [History] Aspirin [Halfprin] 81 mg PO DAILY tab.ec 03/26/17 [Rx] Albuterol/Ipratropium [DuoNeb 3.0-0.5 MG/3 ML] 3 ml IH QID PRN 05/25/17 [History ] Omeprazole 20 mg PO DAILY 05/25/17 [History] Warfarin [Coumadin] 2.5 mg PO SUTUWETHFRSA 05/25/17 [History] Warfarin [Coumadin] 5 mg PO MO 05/25/17 [History] Past Medical History HEENT History: Reports: Other (See Below) 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 Gastrointestinal History: Reports: Colon Polyp Genitourinary History: Reports: Urinary Incontinence, Other (See Below) Other Genitourinary History: Urinaty incontinence mainly at night, wears Depends all the time. 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 - Past Surgical History Cardiovascular Surgical History: Reports: Coronary Artery Stent Other Respiratory Surgeries/Procedures: READ THE REFERAL PAPERS SENT FROM [facility] FOR FURTHER HISTORY Other GI Surgeries/Procedures: UNABLE TO DO DUE TO PT CONFUSED Social & Family History - Family History Family Medical History: Noncontributory - Tobacco Use Smoking Status *Q: Former Smoker Used Tobacco, but Quit: Yes Month Tobacco Last Used: / Second Hand Smoke Exposure: No - Caffeine Use Caffeine Use: Reports: None Other Caffeine Use: Likes Hot Chocolate. - Recreational Drug Use Recreational Drug Use: No H&P Review of Systems - Review of Systems: Review Of Systems: ROS reveals no pertinent complaints other than HPI. Exam - Exam Exam: See Below - Vital Signs Vital Signs: Vital Signs - 24 hr 05/24/17 05/24/17 05/24/17 17:10 18:00 18:04 Temperature Temperature [ 101.3 F H Oral] Temperature [ 99.6 F 99.4 F Tympanic] Pulse, Peripheral Pulse, 78 80 Peripheral [ Left Pulse Oximetry] Pulse, 145 H Peripheral [ Right] Respiratory 18 24 H 16 Rate Blood Pressure Blood Pressure [Left Upper Arm ] Blood Pressure 125/74 155/88 H 123/71 [Right Upper Arm] O2 Sat by Pulse 96 92 L 97 Oximetry O2 Sat by Pulse Oximetry [Room Air] 05/24/17 05/24/17 05/25/17 18:09 21:50 00:00 Temperature Temperature [ 99 F 100 F Oral] Temperature [ Tympanic] Pulse, Peripheral Pulse, 87 Peripheral [ Left Pulse Oximetry] Pulse, 90 86 Peripheral [ Right] Respiratory 18 18 Rate Blood Pressure Blood Pressure [Left Upper Arm ] Blood Pressure 124/67 124/72 [Right Upper Arm] O2 Sat by Pulse 94 L 91 L Oximetry O2 Sat by Pulse 93 L Oximetry [Room Air] 05/25/17 05/25/17 05/25/17 02:04 03:04 03:05 Temperature 100.2 F 99.1 F Temperature [ 99.2 F Oral] Temperature [ Tympanic] Pulse, Peripheral Pulse, Peripheral [ Left Pulse Oximetry] Pulse, 88 Peripheral [ Right] Respiratory 18 Rate Blood Pressure Blood Pressure [Left Upper Arm ] Blood Pressure 128/70 [Right Upper Arm] O2 Sat by Pulse 92 L Oximetry O2 Sat by Pulse Oximetry [Room Air] 05/25/17 05/25/17 05/25/17 08:28 08:50 10:41 Temperature Temperature [ 98.5 F Oral] Temperature [ Tympanic] Pulse, 63 Peripheral Pulse, Peripheral [ Left Pulse Oximetry] Pulse, 63 74 Peripheral [ Right] Respiratory 22 H Rate Blood Pressure 102/62 Blood Pressure 102/62 [Left Upper Arm ] Blood Pressure [Right Upper Arm] O2 Sat by Pulse 98 Oximetry O2 Sat by Pulse 92 L Oximetry [Room Air] Weight: 81.057 kg - Exam Quality Assessment: Supplemental Oxygen General: Alert, Oriented, Mild Distress (Shortness historian expiratory phase.) HEENT: Conjunctiva Clear, Mucosa Moist & [place]. No: Scleral Icterus Neck: Supple, Trachea Midline (Bilateral lower lobes with diminished aeration, mid chest bilaterally does have inspiratory crackles in [place] along with expiratory wheezes. Deep inspiration produces cough that is wet however he is unable to bring this up. Equal chest wall expansion. Cardiac pacemaker noted in the left anterior chest.) Cardiovascular: Regular Rate, Irregular Rhythm GI/Abdominal Exam: Normal Bowel Sounds, Soft, Non-Tender Extremities: Normal Capillary Refill. No: Non-Tender, Pedal Edema Skin: Warm Neurological: Focal Deficit. No: Strength Equal Bilateral (Residual left-sided weakness secondary to prior CVA.) Neuro Extensive - Mental Status: Alert, Normal Mood/Affect, Normal Cognition Psychiatric: No: Anxious, Depressed - Patient Data Lab Results Last 24 hrs: Laboratory Tests 05/24/17 05/24/17 05/24/17 Range/Units 16:30 16:30 16:30 WBC 4.8 (4.5-12.0) X10-3/uL RBC 4.17 L (4.30-5.75) x10(6)uL Hgb 13.0 (11.5-15.5) g/dL Hct 38.7 (30.0-51.3) % MCV 92.7 (80-96) fL MCH 31.1 (27.7-33.6) pg MCHC 33.5 (32.2-35.4) g/dL RDW 14.3 (11.5-15.5) % Plt Count 151 (125-369) X10(3)uL MPV 8.2 (7.4-10.4) fL Neut % (Auto) 77.5 (46-82) % Lymph % (Auto) 9.1 L (13-37) % Becker % (Auto) 9.5 (4-12) % Eos % (Auto) 3 (1.0-5.0) % Baso % (Auto) 1 (0-2) % Neut # (Auto) 3.7 (1.6-8.3) # Lymph # (Auto) 0.4 L (0.6-5.0) # Becker # (Auto) 0.5 (0.0-1.3) # Eos # (Auto) 0.2 (0.0-0.8) # Baso # (Auto) 0.0 (0.0-0.2) # Add Manual Diff Neutrophils % (Manual) (46-82) % Lymphocytes % (Manual) (13-37) % Monocytes % (Manual) (4-12) % Eosinophils % (Manual) (0-5) % PT 26.5 H (8.7-11.1) INR 2.57 H (0.89-1.13) Sodium 143 (135-145) mmol/L Potassium 4.1 (3.5-5.3) mmol/L Chloride 104 (100-110) mmol/L Carbon Dioxide 33 H (21-32) mmol/L BUN 12 (7-18) mg/dL Creatinine 1.0 (0.70-1.30) mg/dL Est Cr Clr Drug Dosing TNP Estimated GFR (MDRD) > 60 (>60) BUN/Creatinine Ratio 12.0 (9-20) Glucose 100 (80-116) mg/dL Lactic Acid (0.4-2.2) mmol/L Calcium 8.9 (8.6-10.2) mg/dL Total Bilirubin (0.1-1.3) mg/dL AST (5-25) IU/L ALT (12-36) U/L Alkaline Phosphatase (56-112) IU/L Troponin I (<0.017-0.056) ng/mL Total Protein (6.0-8.0) g/dL Albumin (3.2-4.6) g/dL Globulin g/dL Albumin/Globulin Ratio Urine Color (YELLOW) Urine Appearance (CLEAR) Urine pH (5.0-6.5) Ur Specific [place] (1.010-1.025) Urine Protein (NEGATIVE) mg/dL Urine Glucose (UA) (NEGATIVE) mg/dL Urine Ketones (NEGATIVE) mg/dL Urine Occult Blood (NEGATIVE) Urine Nitrite (NEGATIVE) Urine Bilirubin (NEGATIVE) Urine Urobilinogen (NEGATIVE) mg/dL Ur Leukocyte Esterase (NEGATIVE) Urine RBC (0) Urine WBC (0) Ur Squamous Epith Cells (NS,R,O) Urine Bacteria (NS) 05/24/17 05/24/17 05/25/17 Range/Units 16:30 16:30 01:30 WBC (4.5-12.0) X10-3/uL RBC (4.30-5.75) x10(6)uL Hgb (11.5-15.5) g/dL Hct (30.0-51.3) % MCV (80-96) fL MCH (27.7-33.6) pg MCHC (32.2-35.4) g/dL RDW (11.5-15.5) % Plt Count (125-369) X10(3)uL MPV (7.4-10.4) fL Neut % (Auto) (46-82) % Lymph % (Auto) (13-37) % Becker % (Auto) (4-12) % Eos % (Auto) (1.0-5.0) % Baso % (Auto) (0-2) % Neut # (Auto) (1.6-8.3) # Lymph # (Auto) (0.6-5.0) # Becker # (Auto) (0.0-1.3) # Eos # (Auto) (0.0-0.8) # Baso # (Auto) (0.0-0.2) # Add Manual Diff Neutrophils % (Manual) (46-82) % Lymphocytes % (Manual) (13-37) % Monocytes % (Manual) (4-12) % Eosinophils % (Manual) (0-5) % PT (8.7-11.1) INR (0.89-1.13) Sodium (135-145) mmol/L Potassium (3.5-5.3) mmol/L Chloride (100-110) mmol/L Carbon Dioxide (21-32) mmol/L BUN (7-18) mg/dL Creatinine (0.70-1.30) mg/dL Est Cr Clr Drug Dosing Estimated GFR (MDRD) (>60) BUN/Creatinine Ratio (9-20) Glucose (80-116) mg/dL Lactic Acid 0.9 (0.4-2.2) mmol/L Calcium (8.6-10.2) mg/dL Total Bilirubin (0.1-1.3) mg/dL AST (5-25) IU/L ALT (12-36) U/L Alkaline Phosphatase (56-112) IU/L Troponin I < 0.017 L (<0.017-0.056) ng/mL Total Protein (6.0-8.0) g/dL Albumin (3.2-4.6) g/dL Globulin g/dL Albumin/Globulin Ratio Urine Color Yellow (YELLOW) Urine Appearance Clear (CLEAR) Urine pH 8.0 H (5.0-6.5) Ur Specific [place] 1.015 (1.010-1.025) Urine Protein Negative (NEGATIVE) mg/dL Urine Glucose (UA) Normal (NEGATIVE) mg/dL Urine Ketones Negative (NEGATIVE) mg/dL Urine Occult Blood Negative (NEGATIVE) Urine Nitrite Negative (NEGATIVE) Urine Bilirubin Negative (NEGATIVE) Urine Urobilinogen Normal (NEGATIVE) mg/dL Ur Leukocyte Esterase Negative (NEGATIVE) Urine RBC 0-5 (0) Urine WBC 0-5 (0) Ur Squamous Epith Cells Rare (NS,R,O) Urine Bacteria Few H (NS) 05/25/17 05/25/17 Range/Units 06:20 06:20 WBC 4.1 L (4.5-12.0) X10-3/uL RBC 3.95 L (4.30-5.75) x10(6)uL Hgb 12.1 (11.5-15.5) g/dL Hct 36.4 (30.0-51.3) % MCV 92.0 (80-96) fL MCH 30.6 (27.7-33.6) pg MCHC 33.3 (32.2-35.4) g/dL RDW 14.0 (11.5-15.5) % Plt Count 130 (125-369) X10(3)uL MPV 8.3 (7.4-10.4) fL Neut % (Auto) (46-82) % Lymph % (Auto) (13-37) % Becker % (Auto) (4-12) % Eos % (Auto) (1.0-5.0) % Baso % (Auto) (0-2) % Neut # (Auto) (1.6-8.3) # Lymph # (Auto) (0.6-5.0) # Becker # (Auto) (0.0-1.3) # Eos # (Auto) (0.0-0.8) # Baso # (Auto) (0.0-0.2) # Add Manual Diff Yes Neutrophils % (Manual) 68 (46-82) % Lymphocytes % (Manual) 20 (13-37) % Monocytes % (Manual) 7 (4-12) % Eosinophils % (Manual) 5 (0-5) % PT (8.7-11.1) INR (0.89-1.13) Sodium 141 (135-145) mmol/L Potassium 3.8 (3.5-5.3) mmol/L Chloride 104 (100-110) mmol/L Carbon Dioxide 30 (21-32) mmol/L BUN 10 (7-18) mg/dL Creatinine 1.0 (0.70-1.30) mg/dL Est Cr Clr Drug Dosing 52.25 Estimated GFR (MDRD) > 60 (>60) BUN/Creatinine Ratio 10.0 (9-20) Glucose 85 (80-116) mg/dL Lactic Acid (0.4-2.2) mmol/L Calcium 8.5 L (8.6-10.2) mg/dL Total Bilirubin 0.5 (0.1-1.3) mg/dL AST 17 (5-25) IU/L ALT 18 (12-36) U/L Alkaline Phosphatase 67 (56-112) IU/L Troponin I (<0.017-0.056) ng/mL Total Protein 5.7 L (6.0-8.0) g/dL Albumin 2.6 L (3.2-4.6) g/dL Globulin 3.1 g/dL Albumin/Globulin Ratio 0.8 Urine Color (YELLOW) Urine Appearance (CLEAR) Urine pH (5.0-6.5) Ur Specific [place] (1.010-1.025) Urine Protein (NEGATIVE) mg/dL Urine Glucose (UA) (NEGATIVE) mg/dL Urine Ketones (NEGATIVE) mg/dL Urine Occult Blood (NEGATIVE) Urine Nitrite (NEGATIVE) Urine Bilirubin (NEGATIVE) Urine Urobilinogen (NEGATIVE) mg/dL Ur Leukocyte Esterase (NEGATIVE) Urine RBC (0) Urine WBC (0) Ur Squamous Epith Cells (NS,R,O) Urine Bacteria (NS) Result Diagrams: 05/25/17 06:20 05/25/17 06:20 Jairo Results Last 24 hrs: Microbiology 05/24/17 21:35 Nasal, Left Influenza Type A Antigen Screen - Final Positive Influenza A Ag 05/24/17 21:35 Nasal, Left Influenza Type B Antigen Screen - Final NEGATIVE INFLUENZA B VIRUS AG 05/24/17 16:20 Blood - Venous Anaerobic Blood Culture - Final 05/24/17 19:15 Blood - Venous - Lab Draw Anaerobic Blood Culture - Final Imaging Impressions Last 24 hrs: Chest right x-ray is suboptimal secondary to poor inspiration and penetration. Right lower lobe does show possible patchy infiltrate as well as on the right. Official radiographic reading is pending. No significant cephalization or effusions noted *Q Meaningful Use (ADM) - VTE *Q VTE Criteria *Q: VTE Mechanical Contraindications *Q: At Risk for Falls - Stroke *Q Stroke Criteria *Q: - AMI *Q AMI Criteria *Q: - Problem List (1) Pneumonia of both lower lobes due to influenza A virus SNOMED Code(s): 890966632, 552488797 ICD Code: J11.00 - FLU DUE TO UNIDENTIFIED FLU VIRUS W UNSP TYPE OF PNEUMONIA Status: Acute Current Visit: Yes (2) Influenza A SNOMED Code(s): 173554101 ICD Code: J10.1 - FLU DUE TO OTH IDENT INFLUENZA VIRUS W OTH RESP MANIFEST Status: Acute Current Visit: Yes (3) Respiratory distress, acute SNOMED Code(s): 786616580 ICD Code: R06.03 - ACUTE RESPIRATORY DISTRESS Status: Acute Current Visit : Yes (4) Warfarin anticoagulation SNOMED Code(s): 03133713, 306835781 ICD Code: Z79.01 - RECRUITING MANAGER (CURRENT) USE OF ANTICOAGULANTS Status: Acute Current Visit: Yes (5) Weakness SNOMED Code(s): 16844893 ICD Code: R53.1 - WEAKNESS Status: Acute Current Visit: Yes (6) CAD (coronary artery disease) SNOMED Code(s): 21200298 ICD Code: I25.10 - ATHSCL HEART DISEASE OF [place] CORONARY ARTERY W/O ANG PCTRS Status: Acute Current Visit: Yes Problem List Initiated/Reviewed/Updated: Yes Orders Last 24hrs: Active Orders 24 hr Category Date Time Status Isolation [COMM] Stat Oth 05/25/17 09:22 Ordered Medication Orders Acetaminophen (Tylenol) 650 mg PO Q4H PRN PRN Reason: Fever Last Admin: 05/24/17 19:43 Dose: 650 mg Acetaminophen (Tylenol) 650 mg PO TID PRN PRN Reason: Pain Albuterol (Proventil Neb Soln) 2.5 mg NEB Q2H PRN PRN Reason: Shortness Of Breath/wheezing Last Admin: 05/25/17 08:49 Dose: 2.5 mg Admin: 05/24/17 18:03 Dose: 2.5 mg Albuterol/Ipratropium (Duoneb 3.0-0.5 Mg/3 Ml) 3 ml NEB QIDRT ADRIÁN Aspirin (Halfprin) 81 mg PO DAILY [facility] Atorvastatin Calcium (Lipitor) 40 mg PO DAILY [facility] Carvedilol (Coreg) 6.25 mg PO BID ADRIÁN Clopidogrel Bisulfate (Plavix) 75 mg PO DAILY ADRIÁN Furosemide (Lasix) 20 mg PO DAILY PRN PRN Reason: Edema Sodium Chloride (Normal Saline) 250 mls @ 100 mls/hr IV ASDIRECTED ADRIÁN Last Admin: 05/24/17 21:25 Dose: 100 mls/hr Levofloxacin/Dextrose 750 mg/ (Premix) 150 mls @ 100 mls/hr IV Q24H ADRIÁN Stop: 05/29/17 21:29 Ibuprofen (Motrin) 600 mg PO Q6H PRN PRN Reason: Fever Last Admin: 05/25/17 02:04 Dose: 600 mg Latanoprost (Xalatan 0.005% Ophth Soln) ml EYERT BEDTIME ADRIÁN Nitroglycerin (Nitrostat) 0.4 mg SL ASDIRECTED PRN PRN Reason: Chest Pain Non-Formulary Medication (Multivitamin [Multivitamins]) 1 tab PO DAILY [facility] Ondansetron HCl (Zofran) 4 mg IV Q4H PRN PRN Reason: Nausea/Vomiting Pantoprazole Sodium (Protonix) 40 mg PO DAILY [facility] Sodium Chloride (Saline Flush) 10 ml FLUSH ASDIRECTED PRN PRN Reason: Keep Vein Open Last Admin: 05/25/17 08:45 Dose: 10 ml Admin: 05/24/17 22:54 Dose: 10 ml Tamsulosin HCl (Flomax) 0.4 mg PO DAILY [facility] Timolol Maleate (Timoptic 0.5% Ophth Soln) ml EYERT DAILY [facility] Warfarin Sodium (Coumadin) 5 mg PO .PHARMACY TO DOSE ADRIÁN Assessment/Plan Comment:: Patient with numerous comorbidities putting him at higher risk for complication. Will start antivirals as well as antibiotic therapy for bilateral lower lobe pneumonia secondary to influenza. Also will start DuoNeb 4 times a day and albuterol every 2 hours when necessary. Will attempt to get a sputum culture however I doubt this is something we'll be able to obtain. Blood cultures are pending. Repeat chest x-ray in the next day or so. Family is contacted so the prophylactic doses of Tamiflu can be started. We will have PT and OT begin working with him to get his strengthening. He is at risk for falls so will be up with assist. He is anticoagulated chronically with warfarin secondary to atrial fibrillation. He is also on Plavix secondary to right CVA. We'll keep him on continuous oxygen therapy 2 L minimal. Daughter says he normally gets around in a wheelchair however they will be him up with a cane and walking around intermittently. He is on droplet precautions. He had a normal swallow study recently so low sodium diet. He would like some tomato juice-low sodium course.
[2017-05-25] MEDS: Aspirin 81 MG Tab.EC PO SCH (10:41)
[2017-05-25] MEDS: Pantoprazole 40 MG Tab.CR PO SCH (10:41)
[2017-05-25] MEDS: Multivitamin Tab PO SCH (10:41)
[2017-05-25] MEDS: Carvedilol 6.25 MG Tab PO SCH (10:41)
[2017-05-25] MEDS: Oseltamivir 75 MG Cap PO SCH ×2 (10:41→20:12)
[2017-05-25] MEDS: Clopidogrel 75 MG Tab PO SCH (10:41)
[2017-05-25] MEDS: Tamsulosin 0.4 MG Cap.ER PO SCH (10:42)
[2017-05-25] MEDS: PEG 400/Propylene Glycol Ophth Soln 15 ML Bottle EYELF SCH ×2 (10:42→20:11)
[2017-05-25] MEDS: Timolol Maleate 0.5% Ophth Soln 5 ML Bottle EYERT SCH (10:42)
[2017-05-25] MEDS: Albuterol/Ipratropium 3.0-0.5 MG/3 ML Neb Soln NEB SCH ×3 (12:31→20:09)
--- NOTE | 2017-05-25 16:40 | CR ---
INDICATION: Fever, shortness of breath. CHEST: An AP upright view of the chest was obtained 05/24/2017 and compared with 03/24/2017, now revealing an appearance of infiltration at the left lung base, suggesting pneumonia with minimal pleuritis, there being blunting of the costophrenic angle in that area. The heart appears somewhat enlarged. The aorta is tortuous and calcified. Bipolar pacemaker leads are unchanged in position. Pulmonary vasculature also appears somewhat prominent, raising question of a mild degree of CHF with minimal interstitial lung edema also suggested by slightly prominent interstitial markings. IMPRESSION: 1. Left basilar pneumonia and pleuritis may be present, relatively mild. 2. Possible CHF and minimal interstitial lung edema. 3. ASHD with cardiomegaly and bipolar pacemaker leads, stable in position. MTDD
[2017-05-25] MEDS: Levofloxacin/Dextrose 5%-Water 750 MG in Premix Bag 1 BAG IV SCH (20:09)
[2017-05-25] MEDS: atorvaSTATin 40 MG Tab PO SCH (20:09)
[2017-05-25] MEDS: Latanoprost 0.005% Ophth Soln 2.5 ML Bottle EYERT SCH (20:11)
[2017-05-25] MEDS: Acetaminophen 325 MG Tab PO PRN (23:54)
[2017-05-26] MEDS: Pantoprazole 40 MG Tab.CR PO SCH (06:32)
[2017-05-26] MEDS: Albuterol/Ipratropium 3.0-0.5 MG/3 ML Neb Soln NEB SCH ×4 (07:36→20:41)
[2017-05-26] MEDS: Clopidogrel 75 MG Tab PO SCH (09:28)
[2017-05-26] MEDS: Multivitamin Tab PO SCH (09:28)
[2017-05-26] MEDS: PEG 400/Propylene Glycol Ophth Soln 15 ML Bottle EYELF SCH ×2 (09:28→20:43)
[2017-05-26] MEDS: Aspirin 81 MG Tab.EC PO SCH (09:28)
[2017-05-26] MEDS: Timolol Maleate 0.5% Ophth Soln 5 ML Bottle EYERT SCH (09:29)
[2017-05-26] MEDS: Oseltamivir 75 MG Cap PO SCH ×2 (09:29→20:43)
[2017-05-26] MEDS: Acetaminophen 325 MG Tab PO PRN ×2 (09:41→19:26)
[2017-05-26] MEDS: Carvedilol 3.125 MG Tab PO SCH ×2 (10:39→18:23)
[2017-05-26] MEDS: Tamsulosin 0.4 MG Cap.ER PO SCH (10:39)
[2017-05-26] MEDS: Carvedilol 6.25 MG Tab PO SCH (10:41)
[2017-05-26] MEDS: Sodium Chloride 0.65% Nasal Spray 45 ML Bottle NAS SCH ×2 (11:57→20:42)
[2017-05-26] MEDS ORDERED: Warfarin Sliding Scale PO SCH (12:00)
[2017-05-26] MEDS ORDERED: Warfarin 2.5 MG Tab PO SCH ×2 (12:03→16:00)
--- NOTE | 2017-05-26 13:48 | PCM.PN ---
- General Info Date of Service: 05/26/17 Subjective Update: Patient sitting upright in his chair. Droplet precautions in place. His daughter and granddaughter are here with him today. He is eating his meal. Pleasant and conversant. Nursing without concerns. He unfortunately is being treated for both influenza A along with bilateral lower lobe pneumonia and respiratory cares. Functional Status: Reports: Ambulating, Urinating, Incentive Spirometry - Review of Systems General: Reports: Fever (Low-grade), Weakness (Admits feels a bit better today) , Fatigue, Appetite HEENT: Reports: Sinus Congestion, Other (some chronic itching of the nose). Denies: Dysphasia, Headaches Pulmonary: Reports: Shortness of Breath, Cough, Wheezing. Denies: Pleuritic Chest Pain, Sputum, Hemoptysis Cardiovascular: Reports: Dyspnea on Exertion. Denies: Chest Pain, Palpitations , Orthopnea, Lightheadedness Gastrointestinal: Reports: No Symptoms Genitourinary: Reports: No Symptoms Musculoskeletal: Reports: Shoulder Pain (on the left which is chronic. Describes as more of an ache. Has had this injected in the past.). Denies: Neck Pain, Arm Pain, Hand Pain, Leg Pain Skin: Reports: Dryness (Some dryness to the tip of the nose mild erythema chronic eczematous changes.), Pruritis. 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 Denies: Confusion, Headache, Syncope, Trouble Speaking, Change in Speech Psychiatric: Reports: No Symptoms - Patient Data Vitals - Most Recent: Last Vital Signs Temp 99.0 F 05/26/17 07:45 Pulse 84 05/26/17 10:39 Resp 20 05/26/17 07:45 BP 120/70 05/26/17 10:39 Pulse Ox 96 05/26/17 07:50 Weight - Most Recent: 81.057 kg I&O - Last 24 Hours: Vital Signs - 24 hr 05/26/17 05/26/17 10:39 11:20 Temperature [ Axillary] Temperature [ Oral] Pulse, 84 Peripheral Pulse, 84 Peripheral [ Left Pulse Oximetry] Pulse, Peripheral [ Right] Respiratory Rate Blood Pressure 120/70 Blood Pressure [Left Upper Arm ] Blood Pressure [Right Upper Arm] O2 Sat by Pulse Oximetry O2 Sat by Pulse 96 Oximetry [ Nasal Cannula] Med Orders - Current: Current Medications Acetaminophen (Tylenol) 650 mg PO Q4H PRN PRN Reason: Fever Last Admin: 05/26/17 09:41 Dose: 650 mg Acetaminophen (Tylenol) 650 mg PO TID PRN PRN Reason: Pain Albuterol (Proventil Neb Soln) 2.5 mg NEB Q2H PRN PRN Reason: Shortness Of Breath/wheezing Last Admin: 05/25/17 08:49 Dose: 2.5 mg Albuterol/Ipratropium (Duoneb 3.0-0.5 Mg/3 Ml) 3 ml NEB QIDRT [facility] Last Admin: 05/26/17 11:05 Dose: 3 ml Aspirin (Halfprin) 81 mg PO DAILY [facility] Last Admin: 05/26/17 09:28 Dose: 81 mg Atorvastatin Calcium (Lipitor) 40 mg PO BEDTIME [facility] Last Admin: 05/25/17 20:09 Dose: 40 mg Carvedilol (Coreg) 3.125 mg PO BIDMEALS [facility] Last Admin: 05/26/17 10:39 Dose: 3.125 mg Clopidogrel Bisulfate (Plavix) 75 mg PO DAILY [facility] Last Admin: 05/26/17 09:28 Dose: 75 mg Furosemide (Lasix) 20 mg PO DAILY PRN PRN Reason: Edema Sodium Chloride (Normal Saline) 250 mls @ 100 mls/hr IV ASDIRECTED [facility] Last Admin: 05/24/17 21:25 Dose: 100 mls/hr Levofloxacin/Dextrose 750 mg/ (Premix) 150 mls @ 100 mls/hr IV Q24H [facility] Stop: 05/29/17 21:29 Last Admin: 05/25/17 20:09 Dose: 100 mls/hr Ibuprofen (Motrin) 600 mg PO Q6H PRN PRN Reason: Fever Last Admin: 05/25/17 12:59 Dose: 600 mg Latanoprost (Xalatan 0.005% Ophth Soln) 0 ml EYERT BEDTIME [facility] Last Admin: 05/25/17 20:11 Dose: 1 drop Multivitamins/Minerals/Vitamin C (Tab-A-Karolyn) 1 tab PO DAILY [facility] Last Admin: 05/26/17 09:28 Dose: 1 tab Nitroglycerin (Nitrostat) 0.4 mg SL ASDIRECTED PRN PRN Reason: Chest Pain Ondansetron HCl (Zofran) 4 mg IV Q4H PRN PRN Reason: Nausea/Vomiting Oseltamivir Phosphate (Tamiflu) 75 mg PO BID [facility] Stop: 05/29/17 21:01 Last Admin: 05/26/17 09:29 Dose: 75 mg Pantoprazole Sodium (Protonix) 40 mg PO DAILY@0600 [facility] Last Admin: 05/26/17 06:32 Dose: 40 mg Propylene Glycol (Systane Lubricant) 0 ml EYELF BID [facility] Last Admin: 05/26/17 09:28 Dose: 1 drop Sodium Chloride (Saline Flush) 10 ml FLUSH ASDIRECTED PRN PRN Reason: Keep Vein Open Last Admin: 05/25/17 08:45 Dose: 10 ml Sodium Chloride ([place] Nasal [place]) 0 ml NARCISA BID [facility] Last Admin: 05/26/17 11:57 Dose: 1 spray Tamsulosin HCl (Flomax) 0.4 mg PO DAILY [facility] Last Admin: 05/26/17 10:39 Dose: 0.4 mg Timolol Maleate (Timoptic 0.5% Ophth Soln) 0 ml EYERT DAILY [facility] Last Admin: 05/26/17 09:29 Dose: 1 drop Warfarin Sodium (Coumadin) 5 mg PO Mo@1600 [facility] Warfarin Sodium (Coumadin Sliding Scale) 1 each PO .PHARMACYTODOSE [facility] Warfarin Sodium (Coumadin) 2.5 mg PO SuTuWeThFrSa [facility] Discontinued Medications Carvedilol (Coreg) 6.25 mg PO BIDMEALS [facility] Last Admin: 05/26/17 10:41 Dose: Not Given Levofloxacin/Dextrose 500 mg/ (Premix) 100 mls @ 100 mls/hr IV ONETIME ONE Stop: 05/24/17 21:43 Last Admin: 05/24/17 21:25 Dose: 100 mls/hr - Exam Quality Assessment: Supplemental Oxygen (2-3 L nc) General: Alert, Oriented, Cooperative, No Acute Distress HEENT: Mucous Membr. Moist/[employer], Other (Obvious left facial drooping) Neck: Trachea Midline. No: +2 Carotid Pulse wo Bruit, Carotid Bruit Lungs: Decreased Breath Sounds, Crackles, Rales, Wheezing Cardiovascular: Regular Rate, Irregular Rhythm GI/Abdominal Exam: Normal Bowel Sounds, Soft, Non-Tender Back Exam: Normal Inspection Extremities: Normal Range of Motion (Left shoulder compared to right shows normal range of motion and strength. Left is nontender to palpation and no increased warmth. No swelling.), Non-Tender. No: Joint Swelling Skin: Warm, Intact Neurological: No New Focal Deficit, Normal Speech, Sensation Intact. No: Strength Equal Bilateral (Left side weaker than the right.) Psy/Mental Status: Normal Affect (Very pleasant,, and always thanks you for any cares that you provide. Daughter and granddaughter say that he is always like this, I'm very appreciative man.), Normal Mood - Problem List & Annotations (1) Pneumonia of both lower lobes due to influenza A virus SNOMED Code(s): 826637271, 107151270 Code(s): J11.00 - FLU DUE TO UNIDENTIFIED FLU VIRUS W UNSP TYPE OF PNEUMONIA Status: Acute Current Visit: Yes (2) Influenza A SNOMED Code(s): 036180054 Code(s): J10.1 - FLU DUE TO OTH IDENT INFLUENZA VIRUS W OTH RESP MANIFEST Status: Acute Current Visit: Yes (3) Respiratory distress, acute SNOMED Code(s): 871994070 Code(s): R06.03 - ACUTE RESPIRATORY DISTRESS Status: Acute Current Visit : Yes (4) CVA (cerebral vascular accident) SNOMED Code(s): 410841466 Code(s): I63.9 - CEREBRAL INFARCTION, UNSPECIFIED Status: Acute Current Visit: Yes Qualifiers: CVA mechanism: unspecified Qualified Code(s): I63.9 - Cerebral infarction, unspecified (5) Atrial fibrillation with controlled ventricular response SNOMED Code(s): 01326413 Code(s): I48.91 - UNSPECIFIED ATRIAL FIBRILLATION Status: Chronic Current Visit: Yes (6) Subtherapeutic international normalized ratio (INR) SNOMED Code(s): 251624524 Code(s): R79.1 - ABNORMAL COAGULATION PROFILE Status: Acute Current Visit : Yes (7) Warfarin anticoagulation SNOMED Code(s): 63664799, 188879975 Code(s): Z79.01 - NURSING HOME (CURRENT) USE OF ANTICOAGULANTS Status: Acute Current Visit: Yes (8) Weakness SNOMED Code(s): 32377182 Code(s): R53.1 - WEAKNESS Status: Acute Current Visit: Yes (9) CAD (coronary artery disease) SNOMED Code(s): 87398675 Code(s): I25.10 - ATHSCL HEART DISEASE OF [place] CORONARY ARTERY W/O ANG PCTRS Status: Acute Current Visit: Yes (10) Pacemaker SNOMED Code(s): 726067525 Code(s): Z95.0 - PRESENCE OF CARDIAC PACEMAKER Status: Chronic Current Visit: Yes - Problem List Review Problem List Initiated/Reviewed/Updated: Yes - My Orders Last 24 Hours: My Active Orders 05/26/17 10:00 Carvedilol [Coreg] 3.125 mg PO BIDMEALS 05/26/17 11:45 Sodium Chloride 0.65% [[place] Nasal [place]] 0 ml NARCISA BID 05/26/17 11:55 INR,PT,PROTHROMBIN TIME [COAG] ONETIME 05/26/17 12:00 Warfarin Sliding Scale [Coumadin Sliding Scale] 1 each PO .PHARMACYTODOSE 05/26/17 16:00 Warfarin [Coumadin] 2.5 mg PO SuTuWeThFrSa 05/27/17 05:10 INR,PT,PROTHROMBIN TIME [COAG] DAILY 05/28/17 05:10 INR,PT,PROTHROMBIN TIME [COAG] DAILY 05/29/17 05:10 INR,PT,PROTHROMBIN TIME [COAG] DAILY - Assessment Assessment:: Please see above - Plan Plan:: Patient with numerous comorbidities putting him at higher risk for complication. on antivirals as well as antibiotic therapy for bilateral lower lobe pneumonia secondary to influenza. He does have wheezing throughout I am cautious regarding steroid addition will continue to monitor. DuoNeb 4 times a day and albuterol every 2 hours when necessary. o2 therapy. Will attempt to get a sputum culture however I doubt this is something we'll be able to obtain. Blood cultures are pending. Repeat chest x-ray in the next day or so. PT and OT begin working with him to get his strengthening. He is at risk for falls so will be up with assist. He is anticoagulated chronically with warfarin secondary to atrial fibrillation however his INRs have been subtherapeutic. He is also on Plavix secondary to right CVA. For increased risk of bleeding I am going to opt for Lovenox prophylaxis rather than therapeutic at this time as I have started him on antibiotics and he is getting his dose of warfarin today at 7.5 mg. Will get carotid ultrasounds and a repeat echocardiogram. Will also repeat CT scan of the head regarding any possible further complications and comparisons. We'll keep him on continuous oxygen therapy 2 L minimal. Daughter says he normally gets around in a wheelchair however they will be him up with a cane and walking around intermittently. He is on droplet precautions. He had a normal swallow study recently so low sodium diet.
[2017-05-26] MEDS: Perform Pain Reliever Gel 89 ML Tube TP SCH ×2 (15:49→20:42)
[2017-05-26] MEDS: Enoxaparin 40 MG/0.4 ML Syringe SUBCUT SCH (15:51)
[2017-05-26] MEDS ORDERED: Warfarin 5 MG Tab PO ONE (16:00)
[2017-05-26] MEDS ORDERED: Acetaminophen 325 MG Tab ONE (19:34)
[2017-05-26] MEDS: Levofloxacin/Dextrose 5%-Water 750 MG in Premix Bag 1 BAG IV SCH (19:49)
[2017-05-26] MEDS: atorvaSTATin 40 MG Tab PO SCH (20:42)
[2017-05-26] MEDS: Latanoprost 0.005% Ophth Soln 2.5 ML Bottle EYERT SCH (20:44)
[2017-05-26] MEDS: Triamcinolone Acetonide 0.1% Oint 15 GM Tube TOP SCH (20:44)
[2017-05-26] MEDS: Sodium Chloride 0.9% 10 ML Syringe FLUSH PRN (21:42)
[2017-05-27] MEDS: Albuterol 0.083% 2.5 MG/3 ML Neb Soln NEB PRN (02:06)
[2017-05-27] MEDS: Pantoprazole 40 MG Tab.CR PO SCH (05:35)
[2017-05-27] MEDS: Albuterol/Ipratropium 3.0-0.5 MG/3 ML Neb Soln NEB SCH ×4 (07:23→20:46)
[2017-05-27] MEDS: Sodium Chloride 0.65% Nasal Spray 45 ML Bottle NAS SCH ×2 (08:42→20:28)
[2017-05-27] MEDS: Triamcinolone Acetonide 0.1% Oint 15 GM Tube TOP SCH ×2 (08:42→20:32)
[2017-05-27] MEDS: PEG 400/Propylene Glycol Ophth Soln 15 ML Bottle EYELF SCH ×2 (08:43→20:29)
[2017-05-27] MEDS: Timolol Maleate 0.5% Ophth Soln 5 ML Bottle EYERT SCH (08:43)
[2017-05-27] MEDS: Aspirin 81 MG Tab.EC PO SCH (08:44)
[2017-05-27] MEDS: Clopidogrel 75 MG Tab PO SCH (08:44)
[2017-05-27] MEDS: Multivitamin Tab PO SCH (08:44)
[2017-05-27] MEDS: Tamsulosin 0.4 MG Cap.ER PO SCH (08:44)
[2017-05-27] MEDS: Oseltamivir 75 MG Cap PO SCH ×2 (08:44→20:31)
[2017-05-27] MEDS: Carvedilol 3.125 MG Tab PO SCH ×2 (08:45→17:04)
[2017-05-27] MEDS: Perform Pain Reliever Gel 89 ML Tube TP SCH ×3 (08:45→20:29)
--- NOTE | 2017-05-27 09:02 | PCM.PN ---
- General Info Date of Service: 05/27/17 Subjective Update: Patient sitting upright in his chair. Droplet precautions in place. He is eating his meal. Pleasant and conversant. Nursing without concerns. He is being treated for both influenza A along with bilateral lower lobe pneumonia and respiratory cares. He has also had a repeat cva on the right prior to discharge despite both plavix and warfarin. however his warfarin has been subtherapeutic. Functional Status: Reports: Ambulating, Urinating, Incentive Spirometry - Review of Systems Systems Review Comment:: General: Reports: Fever (Low-grade), Weakness (Admits feels a bit better today) , Fatigue, Appetite HEENT: Reports: Sinus Congestion, Other (some chronic itching of the nose). Denies: Dysphasia, Headaches Pulmonary: Reports: Shortness of Breath, Cough, Wheezing. Denies: Pleuritic Chest Pain, Sputum, Hemoptysis Cardiovascular: Reports: Dyspnea on Exertion. Denies: Chest Pain, Palpitations , Orthopnea, Lightheadedness Gastrointestinal: Reports: No Symptoms Genitourinary: Reports: No Symptoms Musculoskeletal: Reports: Shoulder Pain is better with addition of topical analgesics. Denies: Neck Pain, Arm Pain, Hand Pain, Leg Pain Skin: Reports: Dryness (Some dryness to the tip of the nose better. no more Pruritis. 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 Denies: Confusion, Headache, Syncope, Trouble Speaking, Change in Speech Psychiatric: Reports: No Symptoms - Patient Data Vitals - Most Recent: Last Vital Signs Temp 97.3 F 05/27/17 04:00 Pulse 86 05/27/17 08:45 Resp 19 05/27/17 04:00 BP 114/73 05/27/17 08:45 Pulse Ox 96 05/27/17 07:35 Weight - Most Recent: 81.057 kg I&O - Last 24 Hours: Intake & Output 05/26/17 05/27/17 05/27/17 22:59 06:59 14:59 Intake Total 180 125 Balance 180 125 Lab Results Last 24 Hours: Laboratory Results - last 24 hr 05/26/17 05/27/17 Range/Units 13:55 06:25 PT 12.1 H 12.0 H (8.7-11.1) INR 1.20 H 1.19 H (0.89-1.13) Med Orders - Current: Current Medications Acetaminophen (Tylenol) 650 mg PO Q4H PRN PRN Reason: Fever Last Admin: 05/26/17 19:26 Dose: 650 mg Acetaminophen (Tylenol) 650 mg PO TID PRN PRN Reason: Pain Albuterol (Proventil Neb Soln) 2.5 mg NEB Q2H PRN PRN Reason: Shortness Of Breath/wheezing Last Admin: 05/27/17 02:06 Dose: 2.5 mg Albuterol/Ipratropium (Duoneb 3.0-0.5 Mg/3 Ml) 3 ml NEB QIDRT [facility] Last Admin: 05/27/17 07:23 Dose: 3 ml Aspirin (Halfprin) 81 mg PO DAILY [facility] Last Admin: 05/27/17 08:44 Dose: 81 mg Atorvastatin Calcium (Lipitor) 40 mg PO BEDTIME [facility] Last Admin: 05/26/17 20:42 Dose: 40 mg Carvedilol (Coreg) 3.125 mg PO BIDMEALS [facility] Last Admin: 05/27/17 08:45 Dose: 3.125 mg Clopidogrel Bisulfate (Plavix) 75 mg PO DAILY [facility] Last Admin: 05/27/17 08:44 Dose: 75 mg Enoxaparin Sodium (Lovenox) 40 mg SUBCUT Q24H [facility] Last Admin: 05/26/17 15:51 Dose: 40 mg Furosemide (Lasix) 20 mg PO DAILY PRN PRN Reason: Edema Sodium Chloride (Normal Saline) 250 mls @ 100 mls/hr IV ASDIRECTED [facility] Last Admin: 05/24/17 21:25 Dose: 100 mls/hr Levofloxacin/Dextrose 750 mg/ (Premix) 150 mls @ 100 mls/hr IV Q24H [facility] Stop: 05/29/17 21:29 Last Admin: 05/26/17 19:49 Dose: 100 mls/hr Ibuprofen (Motrin) 600 mg PO Q6H PRN PRN Reason: Fever Last Admin: 05/25/17 12:59 Dose: 600 mg Latanoprost (Xalatan 0.005% Ophth Soln) 0 ml EYERT BEDTIME [facility] Last Admin: 05/26/17 20:44 Dose: 1 drop Menthol (Perform Pain Reliever) 0 ml TP TID [facility] Last Admin: 05/27/17 08:45 Dose: 89 ml Multivitamins/Minerals/Vitamin C (Tab-A-Karolyn) 1 tab PO DAILY [facility] Last Admin: 05/27/17 08:44 Dose: 1 tab Nitroglycerin (Nitrostat) 0.4 mg SL ASDIRECTED PRN PRN Reason: Chest Pain Ondansetron HCl (Zofran) 4 mg IV Q4H PRN PRN Reason: Nausea/Vomiting Oseltamivir Phosphate (Tamiflu) 75 mg PO BID [facility] Stop: 05/29/17 21:01 Last Admin: 05/27/17 08:44 Dose: 75 mg Pantoprazole Sodium (Protonix) 40 mg PO DAILY@0600 [facility] Last Admin: 05/27/17 05:35 Dose: 40 mg Propylene Glycol (Systane Lubricant) 0 ml EYELF BID [facility] Last Admin: 05/27/17 08:43 Dose: 1 drop Sodium Chloride (Saline Flush) 10 ml FLUSH ASDIRECTED PRN PRN Reason: Keep Vein Open Last Admin: 05/26/17 21:42 Dose: 10 ml Sodium Chloride ([place] Nasal [place]) 0 ml NARCISA BID [facility] Last Admin: 05/27/17 08:42 Dose: 1 spray Tamsulosin HCl (Flomax) 0.4 mg PO DAILY [facility] Last Admin: 05/27/17 08:44 Dose: 0.4 mg Timolol Maleate (Timoptic 0.5% Ophth Soln) 0 ml EYERT DAILY [facility] Last Admin: 05/27/17 08:43 Dose: 1 drop Triamcinolone Acetonide (Triamcinolone Acetonide 0.1% Oint) 0 gm TOP BID [facility] Last Admin: 05/27/17 08:42 Dose: 1 applic Warfarin Sodium (Coumadin Sliding Scale) 1 each PO .PHARMACYTODOSE [facility] Warfarin Sodium 5 mg/ Warfarin (Sodium 2.5 mg) 7.5 mg PO 1600 [facility] Stop: 05/27/17 17:30 Discontinued Medications Acetaminophen (Tylenol) Confirm Administered Dose 325 mg .ROUTE .STK-MED ONE Stop: 05/26/17 19:35 Last Admin: 05/26/17 21:54 Dose: Not Given Carvedilol (Coreg) 6.25 mg PO BIDMEALS [facility] Last Admin: 05/26/17 10:41 Dose: Not Given Levofloxacin/Dextrose 500 mg/ (Premix) 100 mls @ 100 mls/hr IV ONETIME ONE Stop: 05/24/17 21:43 Last Admin: 05/24/17 21:25 Dose: 100 mls/hr Warfarin Sodium (Coumadin) 5 mg PO Mo@1600 [facility] Warfarin Sodium (Coumadin) 2.5 mg PO SuTuWeThFrSa [facility] Warfarin Sodium (Coumadin) 5 mg PO ONETIME ONE Stop: 05/26/17 16:01 Last Admin: 05/26/17 15:51 Dose: 5 mg - Exam Physical Findings Comments:: Quality Assessment: Supplemental Oxygen (2 L nc) General: Alert, Oriented, Cooperative, No Acute Distress HEENT: Mucous Membr. Moist/[place], Other (Obvious left facial drooping) Neck: Trachea Midline. No: +2 Carotid Pulse wo Bruit, Carotid Bruit Lungs: Decreased Breath Sounds, Crackles, Rales, Wheezing Cardiovascular: Regular Rate, Irregular Rhythm GI/Abdominal Exam: Normal Bowel Sounds, Soft, Non-Tender Back Exam: Normal Inspection Extremities: Left is nontender to palpation and no increased warmth. No swelling. Non-Tender. clawing of the left hand beginning to get a bit worse. no contracture. No: Joint Swelling Skin: Warm, Intact Neurological: No New Focal Deficit, Normal Speech, Sensation Intact. No: Strength Equal Bilateral (Left side weaker than the right.) Psy/Mental Status: Normal Affect (Very pleasant,, and always thanks you for any cares that you provide. very appreciative man.), Normal Mood - Problem List & Annotations (1) Pneumonia of both lower lobes due to influenza A virus SNOMED Code(s): 389973450, 672652188 Code(s): J11.00 - FLU DUE TO UNIDENTIFIED FLU VIRUS W UNSP TYPE OF PNEUMONIA Status: Acute Current Visit: Yes (2) Influenza A SNOMED Code(s): 588265555 Code(s): J10.1 - FLU DUE TO OTH IDENT INFLUENZA VIRUS W OTH RESP MANIFEST Status: Acute Current Visit: Yes (3) Respiratory distress, acute SNOMED Code(s): 464722643 Code(s): R06.03 - ACUTE RESPIRATORY DISTRESS Status: Acute Current Visit : Yes (4) CVA (cerebral vascular accident) SNOMED Code(s): 140933825 Code(s): I63.9 - CEREBRAL INFARCTION, UNSPECIFIED Status: Acute Current Visit: Yes Qualifiers: CVA mechanism: unspecified Qualified Code(s): I63.9 - Cerebral infarction, unspecified (5) Atrial fibrillation with controlled ventricular response SNOMED Code(s): 63635873 Code(s): I48.91 - UNSPECIFIED ATRIAL FIBRILLATION Status: Chronic Current Visit: Yes (6) Subtherapeutic international normalized ratio (INR) SNOMED Code(s): 123425446 Code(s): R79.1 - ABNORMAL COAGULATION PROFILE Status: Acute Current Visit : Yes (7) Warfarin anticoagulation SNOMED Code(s): 05853153, 282322683 Code(s): Z79.01 - LEAD SOFTWARE 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 (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 - Problem List Review Problem List Initiated/Reviewed/Updated: Yes - My Orders Last 24 Hours: My Active Orders 05/26/17 10:00 Carvedilol [Coreg] 3.125 mg PO BIDMEALS 05/26/17 11:45 Sodium Chloride 0.65% [[place] Nasal [place]] 0 ml NARCISA BID 05/26/17 12:00 Warfarin Sliding Scale [Coumadin Sliding Scale] 1 each PO .PHARMACYTODOSE 05/26/17 15:30 Menthol [Perform Pain Reliever] 0 ml TP TID 05/26/17 16:00 Enoxaparin [Lovenox] 40 mg SUBCUT Q24H 05/26/17 21:00 Triamcinolone Acetonide [Triamcinolone Acetonide 0.1% Oint] 0 gm TOP BID 05/27/17 16:00 Warfarin [Coumadin] 7.5 mg PO 1600 05/28/17 05:10 INR,PT,PROTHROMBIN TIME [COAG] DAILY 05/29/17 05:10 INR,PT,PROTHROMBIN TIME [COAG] DAILY - Assessment Assessment:: Please see above - Plan Plan:: Patient with numerous comorbidities putting him at higher risk for complication. on antivirals as well as antibiotic therapy for bilateral lower lobe pneumonia secondary to influenza. continues to have wheezing throughout but improving. DuoNeb 4 times a day and albuterol every 2 hours when necessary. IS and o2 therapy. Blood cultures are pending. Repeat chest x-ray in the next day or so. PT and OT begin working with him to get his strengthening. especially with the left hand. He is anticoagulated chronically with warfarin secondary to atrial fibrillation however his INRs have been subtherapeutic and pharmacy is helping us with this. in the meantime I have added lovenox sc. He is also on Plavix secondary to right CVA. I have decided not to get carotid ultrasounds and a repeat echocardiogram as this would not alter my management. Will repeat CT scan of the head regarding any possible further complications and comparisons. If extension on clinical or radiographically, will need to decide on further anticoag management continuation. Daughter says he normally gets around in a wheelchair however they will be him up with a cane and walking around intermittently. He is on droplet precautions.
[2017-05-27] MEDS ORDERED: Zolpidem 5 MG Tab PO PRN (10:19)
[2017-05-27] MEDS ORDERED: Warfarin 5 MG, Warfarin 2.5 MG PO SCH ×2 (16:00)
[2017-05-27] MEDS ORDERED: Warfarin 5 MG Tab PO SCH (16:00)
[2017-05-27] MEDS: Enoxaparin 40 MG/0.4 ML Syringe SUBCUT SCH (17:05)
[2017-05-27] MEDS: atorvaSTATin 40 MG Tab PO SCH (20:27)
[2017-05-27] MEDS: Levofloxacin/Dextrose 5%-Water 750 MG in Premix Bag 1 BAG IV SCH (20:30)
[2017-05-27] MEDS: Latanoprost 0.005% Ophth Soln 2.5 ML Bottle EYERT SCH (20:32)
[2017-05-28] MEDS: Acetaminophen 325 MG Tab PO PRN (05:46)
[2017-05-28] MEDS: Pantoprazole 40 MG Tab.CR PO SCH (05:47)
[2017-05-28] MEDS: Albuterol/Ipratropium 3.0-0.5 MG/3 ML Neb Soln NEB SCH ×4 (07:17→21:10)
[2017-05-28] MEDS: Perform Pain Reliever Gel 89 ML Tube TP SCH ×3 (08:00→20:59)
[2017-05-28] MEDS: Triamcinolone Acetonide 0.1% Oint 15 GM Tube TOP SCH ×2 (08:00→20:52)
[2017-05-28] MEDS: Timolol Maleate 0.5% Ophth Soln 5 ML Bottle EYERT SCH (08:01)
[2017-05-28] MEDS: Tamsulosin 0.4 MG Cap.ER PO SCH (08:01)
[2017-05-28] MEDS: Carvedilol 3.125 MG Tab PO SCH ×2 (08:01→17:14)
[2017-05-28] MEDS: Multivitamin Tab PO SCH (08:01)
[2017-05-28] MEDS: Sodium Chloride 0.65% Nasal Spray 45 ML Bottle NAS SCH ×2 (08:01→20:57)
[2017-05-28] MEDS: Aspirin 81 MG Tab.EC PO SCH (08:01)
[2017-05-28] MEDS: Clopidogrel 75 MG Tab PO SCH (08:01)
[2017-05-28] MEDS: PEG 400/Propylene Glycol Ophth Soln 15 ML Bottle EYELF SCH ×2 (08:01→20:57)
[2017-05-28] MEDS: Oseltamivir 75 MG Cap PO SCH ×2 (08:01→21:01)
--- NOTE | 2017-05-28 11:54 | PCM.PN ---
- General Info Date of Service: 05/28/17 Subjective Update: Patient sitting upright in his chair. Droplet precautions in place. Pleasant and conversant. Nursing noted lower bp and pulse so i have cut his coreg in have. both improved. He is being treated for both influenza A along with bilateral lower lobe pneumonia and respiratory cares. 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 however his warfarin has been subtherapeutic. Functional Status: Reports: Ambulating with assist, Urinating, Incentive Spirometry - Review of Systems Systems Review Comment:: General: Reports: intermittent fever (Low-grade), Weakness (still admits feels a bit better each day), Fatigue, but good Appetite HEENT: Reports: Sinus Congestion, Other (some chronic itching of the nose improved with steroid cream). Denies: Dysphasia, Headaches Pulmonary: Reports: Shortness of Breath, Cough, Wheezing. Denies: Pleuritic Chest Pain, Sputum, Hemoptysis Cardiovascular: Reports: Dyspnea on Exertion. Denies: Chest Pain, Palpitations , Orthopnea, Lightheadedness Gastrointestinal: Reports: No Symptoms Genitourinary: Reports: No Symptoms Musculoskeletal: Reports: Shoulder Pain is better with addition of topical analgesics. Denies: Neck Pain, Arm Pain, Hand Pain, Leg Pain Skin: Reports: No concerns today. 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 Denies: Confusion, Headache, Syncope, Trouble Speaking, Change in Speech Psychiatric: Reports: No Symptoms - Patient Data Vitals - Most Recent: Last Vital Signs Temp 97.9 F 05/28/17 08:00 Pulse 78 05/28/17 11:00 Resp 20 05/28/17 08:00 BP 124/88 05/28/17 08:01 Pulse Ox 96 05/28/17 11:00 Weight - Most Recent: 81.057 kg I&O - Last 24 Hours: Intake & Output 05/27/17 05/28/17 05/28/17 22:59 06:59 14:59 Intake Total 125 Balance 125 Lab Results Last 24 Hours: Laboratory Results - last 24 hr 05/28/17 Range/Units 06:25 PT 19.4 H (8.7-11.1) INR 1.90 H (0.89-1.13) Med Orders - Current: Current Medications Acetaminophen (Tylenol) 650 mg PO Q4H PRN PRN Reason: Fever Last Admin: 05/26/17 19:26 Dose: 650 mg Acetaminophen (Tylenol) 650 mg PO TID PRN PRN Reason: Pain Last Admin: 05/28/17 05:46 Dose: 650 mg Albuterol (Proventil Neb Soln) 2.5 mg NEB Q2H PRN PRN Reason: Shortness Of Breath/wheezing Last Admin: 05/27/17 02:06 Dose: 2.5 mg Albuterol/Ipratropium (Duoneb 3.0-0.5 Mg/3 Ml) 3 ml NEB QIDRT [facility] Last Admin: 05/28/17 10:50 Dose: 3 ml Aspirin (Halfprin) 81 mg PO DAILY [facility] Last Admin: 05/28/17 08:01 Dose: 81 mg Atorvastatin Calcium (Lipitor) 40 mg PO BEDTIME [facility] Last Admin: 05/27/17 20:27 Dose: 40 mg Carvedilol (Coreg) 3.125 mg PO BIDMEALS [facility] Last Admin: 05/28/17 08:01 Dose: 3.125 mg Clopidogrel Bisulfate (Plavix) 75 mg PO DAILY [facility] Last Admin: 05/28/17 08:01 Dose: 75 mg Furosemide (Lasix) 20 mg PO DAILY PRN PRN Reason: Edema Sodium Chloride (Normal Saline) 250 mls @ 100 mls/hr IV ASDIRECTED [facility] Last Admin: 05/24/17 21:25 Dose: 100 mls/hr Levofloxacin/Dextrose 750 mg/ (Premix) 150 mls @ 100 mls/hr IV Q24H [facility] Stop: 05/29/17 21:29 Last Admin: 05/27/17 20:30 Dose: 100 mls/hr Ibuprofen (Motrin) 600 mg PO Q6H PRN PRN Reason: Fever Last Admin: 05/25/17 12:59 Dose: 600 mg Latanoprost (Xalatan 0.005% Ophth Soln) 0 ml EYERT BEDTIME [facility] Last Admin: 05/27/17 20:32 Dose: 1 drop Menthol (Perform Pain Reliever) 0 ml TP TID [facility] Last Admin: 05/28/17 08:00 Dose: 89 ml Multivitamins/Minerals/Vitamin C (Tab-A-Karolyn) 1 tab PO DAILY [facility] Last Admin: 05/28/17 08:01 Dose: 1 tab Nitroglycerin (Nitrostat) 0.4 mg SL ASDIRECTED PRN PRN Reason: Chest Pain Ondansetron HCl (Zofran) 4 mg IV Q4H PRN PRN Reason: Nausea/Vomiting Oseltamivir Phosphate (Tamiflu) 75 mg PO BID [facility] Stop: 05/29/17 21:01 Last Admin: 05/28/17 08:01 Dose: 75 mg Pantoprazole Sodium (Protonix) 40 mg PO DAILY@0600 [facility] Last Admin: 05/28/17 05:47 Dose: 40 mg Propylene Glycol (Systane Lubricant) 0 ml EYELF BID [facility] Last Admin: 05/28/17 08:01 Dose: 1 drop Sodium Chloride (Saline Flush) 10 ml FLUSH ASDIRECTED PRN PRN Reason: Keep Vein Open Last Admin: 05/26/17 21:42 Dose: 10 ml Sodium Chloride ([place] Nasal [place]) 0 ml NARCISA BID [facility] Last Admin: 05/28/17 08:01 Dose: 1 spray Tamsulosin HCl (Flomax) 0.4 mg PO DAILY [facility] Last Admin: 05/28/17 08:01 Dose: 0.4 mg Timolol Maleate (Timoptic 0.5% Ophth Soln) 0 ml EYERT DAILY [facility] Last Admin: 05/28/17 08:01 Dose: 1 drop Triamcinolone Acetonide (Triamcinolone Acetonide 0.1% Oint) 0 gm TOP BID [facility] Last Admin: 05/28/17 08:00 Dose: 1 applic Warfarin Sodium (Coumadin Sliding Scale) 1 each PO .PHARMACYTODOSE [facility] Warfarin Sodium (Coumadin) 2.5 mg PO ONETIME ONE Stop: 05/28/17 16:01 Zolpidem Tartrate (Ambien) 5 mg PO BEDTIME PRN PRN Reason: Insomnia Last Admin: 05/27/17 21:08 Dose: 5 mg Discontinued Medications Acetaminophen (Tylenol) Confirm Administered Dose 325 mg .ROUTE .STK-MED ONE Stop: 05/26/17 19:35 Last Admin: 05/26/17 21:54 Dose: Not Given Carvedilol (Coreg) 6.25 mg PO BIDMEALS [facility] Last Admin: 05/26/17 10:41 Dose: Not Given Enoxaparin Sodium (Lovenox) 40 mg SUBCUT Q24H [facility] Last Admin: 05/27/17 17:05 Dose: 40 mg Levofloxacin/Dextrose 500 mg/ (Premix) 100 mls @ 100 mls/hr IV ONETIME ONE Stop: 05/24/17 21:43 Last Admin: 05/24/17 21:25 Dose: 100 mls/hr Warfarin Sodium (Coumadin) 5 mg PO Mo@1600 [facility] Warfarin Sodium (Coumadin) 2.5 mg PO SuTuWeThFrSa [facility] Warfarin Sodium (Coumadin) 5 mg PO ONETIME ONE Stop: 05/26/17 16:01 Last Admin: 05/26/17 15:51 Dose: 5 mg Warfarin Sodium (Coumadin) 5 mg PO 1600 [facility] Stop: 05/27/17 17:30 Last Admin: 05/27/17 17:04 Dose: 5 mg - Exam Physical Findings Comments:: Quality Assessment: Supplemental Oxygen (nc) General: Alert, Oriented, Cooperative, No Acute Distress HEENT: Mucous Membr. Moist/[place], Other (Obvious left facial drooping) Neck: Trachea Midline. No:Carotid Bruit Lungs: Decreased Breath Sounds at bases but improving aeration throughout, Crackles remain, Rales remain, Wheezing remains, but all improving. Cardiovascular: Regular Rate, Irregular Rhythm GI/Abdominal Exam: Normal Bowel Sounds, Soft, Non-Tender Back Exam: Normal Inspection Extremities: Left is nontender to palpation and no increased warmth. No swelling. Non-Tender. clawing of the left hand stable. no contracture. No: Joint Swelling Skin: Warm, Intact Neurological: No New Focal Deficit, Normal Speech, Sensation Intact. No: Strength Equal Bilateral (Left side weaker than the right.) Psy/Mental Status: Normal Affect (Very pleasant,, and always thanks you for any cares that you provide. very appreciative man.), Normal Mood - Problem List & Annotations (1) Pneumonia of both lower lobes due to influenza A virus SNOMED Code(s): 422440422, 013528615 Code(s): J11.00 - FLU DUE TO UNIDENTIFIED FLU VIRUS W UNSP TYPE OF PNEUMONIA Status: Acute Current Visit: Yes (2) Influenza A SNOMED Code(s): 217202393 Code(s): J10.1 - FLU DUE TO OTH IDENT INFLUENZA VIRUS W OTH RESP MANIFEST Status: Acute Current Visit: Yes (3) Respiratory distress, acute SNOMED Code(s): 654078978 Code(s): R06.03 - ACUTE RESPIRATORY DISTRESS Status: Acute Current Visit : Yes (4) CVA (cerebral vascular accident) SNOMED Code(s): 481293755 Code(s): I63.9 - CEREBRAL INFARCTION, UNSPECIFIED Status: Acute Current Visit: Yes Qualifiers: CVA mechanism: unspecified Qualified Code(s): I63.9 - Cerebral infarction, unspecified (5) Atrial fibrillation with controlled ventricular response SNOMED Code(s): 84606682 Code(s): I48.91 - UNSPECIFIED ATRIAL FIBRILLATION Status: Chronic Current Visit: Yes (6) Subtherapeutic international normalized ratio (INR) SNOMED Code(s): 084721462 Code(s): R79.1 - ABNORMAL COAGULATION PROFILE Status: Acute Current Visit : Yes (7) Warfarin anticoagulation SNOMED Code(s): 76685603, 143974974 Code(s): Z79.01 - [employer] (CURRENT) USE OF ANTICOAGULANTS Status: Acute Current Visit: Yes (8) Weakness SNOMED Code(s): 10878876 Code(s): R53.1 - WEAKNESS Status: Acute Current Visit: Yes (9) CAD (coronary artery disease) SNOMED Code(s): 04235025 Code(s): I25.10 - ATHSCL HEART DISEASE OF [place] CORONARY ARTERY W/O ANG PCTRS Status: Acute Current Visit: Yes (10) Pacemaker SNOMED Code(s): 032773495 Code(s): Z95.0 - PRESENCE OF CARDIAC PACEMAKER Status: Chronic Current Visit: Yes (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 (12) Palliative care status SNOMED Code(s): 380188959 Code(s): Z51.5 - ENCOUNTER FOR PALLIATIVE CARE Status: Acute Current Visit: Yes - Problem List Review Problem List Initiated/Reviewed/Updated: Yes - My Orders Last 24 Hours: My Active Orders 05/28/17 10:11 Incentive Spirometry [RT Incentive Spirometry] [RC] Q4HWA 05/28/17 10:17 Weight Daily [Height and Weight] [RC] DAILY 05/28/17 16:00 Warfarin [Coumadin] 2.5 mg PO ONETIME ONE 05/29/17 05:10 INR,PT,PROTHROMBIN TIME [COAG] DAILY 05/29/17 05:11 CBC WITH AUTO DIFF [HEME] AM COMPREHENSIVE METABOLIC PN,CMP [CHEM] AM 05/29/17 09:00 CXR [Chest 2V] [CR] Routine - Assessment Assessment:: Please see above - Plan Plan:: Patient with numerous comorbidities putting him at higher risk for complication. on antivirals as well as antibiotic therapy for bilateral lower lobe pneumonia secondary to influenza. Clinically improving. DuoNeb 4 times a day and albuterol every 2 hours when necessary. o2 therapy. Blood cultures are negative. Repeat chest x-ray in the next day or so. PT and OT working with him to get his strengthening.. He is anticoagulated chronically with warfarin secondary to atrial fibrillation however his INRs have been subtherapeutic but coming up. so will cut down on the warfarin dose and stop the lovenox. He is also on Plavix secondary to right CVA. . Will also repeat CT scan of the head regarding any possible further complications and comparisons. We'll keep him on continuous oxygen therapy 2 L minimal at this time, but begin weaning as able. doing well with IS.
[2017-05-28] MEDS ORDERED: Warfarin 2.5 MG Tab PO ONE (16:00)
[2017-05-28] MEDS: Levofloxacin/Dextrose 5%-Water 750 MG in Premix Bag 1 BAG IV SCH (20:43)
[2017-05-28] MEDS: Latanoprost 0.005% Ophth Soln 2.5 ML Bottle EYERT SCH (20:58)
[2017-05-28] MEDS: atorvaSTATin 40 MG Tab PO SCH (21:01)
[2017-05-28] MEDS: Sodium Chloride 0.9% 10 ML Syringe FLUSH PRN (21:44)
[2017-05-29] MEDS: Pantoprazole 40 MG Tab.CR PO SCH (06:09)
[2017-05-29] MEDS: Albuterol/Ipratropium 3.0-0.5 MG/3 ML Neb Soln NEB SCH ×4 (07:28→20:57)
[2017-05-29] MEDS: Carvedilol 3.125 MG Tab PO SCH ×2 (08:25→17:42)
[2017-05-29] MEDS: Tamsulosin 0.4 MG Cap.ER PO SCH (09:43)
[2017-05-29] MEDS: Sodium Chloride 0.65% Nasal Spray 45 ML Bottle NAS SCH ×2 (09:43→20:55)
[2017-05-29] MEDS: Perform Pain Reliever Gel 89 ML Tube TP SCH ×3 (09:43→20:55)
[2017-05-29] MEDS: Aspirin 81 MG Tab.EC PO SCH (09:43)
[2017-05-29] MEDS: PEG 400/Propylene Glycol Ophth Soln 15 ML Bottle EYELF SCH ×2 (09:44→20:56)
[2017-05-29] MEDS: Timolol Maleate 0.5% Ophth Soln 5 ML Bottle EYERT SCH (09:46)
[2017-05-29] MEDS: Multivitamin Tab PO SCH (09:46)
[2017-05-29] MEDS: Oseltamivir 75 MG Cap PO SCH ×2 (09:46→20:57)
[2017-05-29] MEDS: Clopidogrel 75 MG Tab PO SCH (09:46)
--- NOTE | 2017-05-29 10:51 | PCM.PN ---
- General Info Date of Service: 05/29/17 Subjective Update: Subjective Update: Patient sitting upright in his chair. Droplet precautions in place. Pleasant and conversant. Nursing without concerns. He is being treated for both influenza A along with bilateral lower lobe pneumonia and respiratory cares. 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 despite both plavix and warfarin. however his warfarin had been subtherapeutic but therapeutic now. Functional Status: Reports: Ambulating with assist, Urinating, Incentive Spirometry - Review of Systems Systems Review Comment:: General: Reports: afebrile. Weakness (admits feels a bit better each day), Fatigue improving, but good Appetite HEENT: Reports: Sinus Congestion, Denies: Dysphasia, Headaches Pulmonary: Reports: Shortness of Breath, Cough, Wheezing getting better. Denies : Pleuritic Chest Pain, Sputum, Hemoptysis Cardiovascular: Reports: Dyspnea on Exertion. Denies: Chest Pain, Palpitations , Orthopnea, Lightheadedness Gastrointestinal: Reports: No Symptoms Genitourinary: Reports: No Symptoms Musculoskeletal: Reports: Shoulder Pain is better with addition of topical analgesics. Denies: Neck Pain, Arm Pain, Hand Pain, Leg Pain Skin: Reports: No concerns today. 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 Denies: Confusion, Headache, Syncope, Trouble Speaking, Change in Speech Psychiatric: Reports: No Symptoms - Patient Data Vitals - Most Recent: Last Vital Signs Temp 98.0 F 05/29/17 04:00 Pulse 70 05/29/17 08:25 Resp 18 05/29/17 04:00 BP 133/67 05/29/17 08:25 Pulse Ox 90 L 05/29/17 07:30 Weight - Most Recent: 79.333 kg I&O - Last 24 Hours: Intake & Output 05/28/17 05/29/17 05/29/17 22:59 06:59 14:59 Intake Total 145 400 Balance 145 400 Lab Results Last 24 Hours: Laboratory Results - last 24 hr 05/29/17 05/29/17 05/29/17 Range/Units 06:00 06:00 06:00 WBC 4.0 L (4.5-12.0) X10-3/uL RBC 3.97 L (4.30-5.75) x10(6)uL Hgb 12.2 (11.5-15.5) g/dL Hct 36.4 (30.0-51.3) % MCV 91.5 (80-96) fL MCH 30.7 (27.7-33.6) pg MCHC 33.5 (32.2-35.4) g/dL RDW 14.1 (11.5-15.5) % Plt Count 142 (125-369) X10(3)uL MPV 8.1 (7.4-10.4) fL Neut % (Auto) 50.7 (46-82) % Lymph % (Auto) 34.2 (13-37) % [place] % (Auto) 10.4 (4-12) % Eos % (Auto) 4 (1.0-5.0) % Baso % (Auto) 1 (0-2) % Neut # (Auto) 2.0 (1.6-8.3) # Lymph # (Auto) 1.4 (0.6-5.0) # [place] # (Auto) 0.4 (0.0-1.3) # Eos # (Auto) 0.2 (0.0-0.8) # Baso # (Auto) 0.0 (0.0-0.2) # PT 22.0 H (8.7-11.1) INR 2.15 H (0.89-1.13) Sodium 141 (135-145) mmol/L Potassium 3.8 (3.5-5.3) mmol/L Chloride 105 (100-110) mmol/L Carbon Dioxide 29 (21-32) mmol/L BUN 8 (7-18) mg/dL Creatinine 0.9 (0.70-1.30) mg/dL Est Cr Clr Drug Dosing 58.06 mL/min Estimated GFR (MDRD) > 60 (>60) BUN/Creatinine Ratio 8.9 L (9-20) Glucose 101 (80-116) mg/dL Calcium 8.9 (8.6-10.2) mg/dL Total Bilirubin 0.3 (0.1-1.3) mg/dL AST 14 D (5-25) IU/L ALT 15 D (12-36) U/L Alkaline Phosphatase 69 (56-112) IU/L Total Protein 6.0 (6.0-8.0) g/dL Albumin 2.6 L (3.2-4.6) g/dL Globulin 3.4 g/dL Albumin/Globulin Ratio 0.8 Med Orders - Current: Current Medications Acetaminophen (Tylenol) 650 mg PO Q4H PRN PRN Reason: Fever Last Admin: 05/26/17 19:26 Dose: 650 mg Acetaminophen (Tylenol) 650 mg PO TID PRN PRN Reason: Pain Last Admin: 05/28/17 05:46 Dose: 650 mg Albuterol (Proventil Neb Soln) 2.5 mg NEB Q2H PRN PRN Reason: Shortness Of Breath/wheezing Last Admin: 05/27/17 02:06 Dose: 2.5 mg Albuterol/Ipratropium (Duoneb 3.0-0.5 Mg/3 Ml) 3 ml NEB QIDRT [facility] Last Admin: 05/29/17 07:28 Dose: 3 ml Aspirin (Halfprin) 81 mg PO DAILY [facility] Last Admin: 05/29/17 09:43 Dose: 81 mg Atorvastatin Calcium (Lipitor) 40 mg PO BEDTIME [facility] Last Admin: 05/28/17 21:01 Dose: 40 mg Carvedilol (Coreg) 3.125 mg PO BIDMEALS [facility] Last Admin: 05/29/17 08:25 Dose: 3.125 mg Clopidogrel Bisulfate (Plavix) 75 mg PO DAILY [facility] Last Admin: 05/29/17 09:46 Dose: 75 mg Furosemide (Lasix) 20 mg PO DAILY PRN PRN Reason: Edema Ibuprofen (Motrin) 600 mg PO Q6H PRN PRN Reason: Fever Last Admin: 05/25/17 12:59 Dose: 600 mg Latanoprost (Xalatan 0.005% Ophth Soln) 0 ml EYERT BEDTIME [facility] Last Admin: 05/28/17 20:58 Dose: 1 drop Levofloxacin (Levaquin) 750 mg PO Q24H [facility] Menthol (Perform Pain Reliever) 0 ml TP TID [facility] Last Admin: 05/29/17 09:43 Dose: 89 ml Multivitamins/Minerals/Vitamin C (Tab-A-Karolyn) 1 tab PO DAILY [facility] Last Admin: 05/29/17 09:46 Dose: 1 tab Nitroglycerin (Nitrostat) 0.4 mg SL ASDIRECTED PRN PRN Reason: Chest Pain Oseltamivir Phosphate (Tamiflu) 75 mg PO BID [facility] Stop: 05/29/17 21:01 Last Admin: 05/29/17 09:46 Dose: 75 mg Pantoprazole Sodium (Protonix) 40 mg PO DAILY@0600 [facility] Last Admin: 05/29/17 06:09 Dose: 40 mg Propylene Glycol (Systane Lubricant) 0 ml EYELF BID [facility] Last Admin: 05/29/17 09:44 Dose: 1 drop Sodium Chloride (Saline Flush) 10 ml FLUSH ASDIRECTED PRN PRN Reason: Keep Vein Open Last Admin: 05/28/17 21:44 Dose: 10 ml Sodium Chloride ([place] Nasal [place]) 0 ml NARCISA BID [facility] Last Admin: 05/29/17 09:43 Dose: 1 spray Tamsulosin HCl (Flomax) 0.4 mg PO DAILY [facility] Last Admin: 05/29/17 09:43 Dose: 0.4 mg Timolol Maleate (Timoptic 0.5% Ophth Soln) 0 ml EYERT DAILY [facility] Last Admin: 05/29/17 09:46 Dose: 1 drop Triamcinolone Acetonide (Triamcinolone Acetonide 0.1% Oint) 0 gm TOP BID [facility] Last Admin: 05/28/17 20:52 Dose: 1 applic Warfarin Sodium (Coumadin Sliding Scale) 1 each PO .PHARMACYTODOSE [facility] Warfarin Sodium (Coumadin) 5 mg PO Mo [facility] Warfarin Sodium (Coumadin) 2.5 mg PO SuTuWeThFrSa [facility] Zolpidem Tartrate (Ambien) 5 mg PO BEDTIME PRN PRN Reason: Insomnia Last Admin: 05/27/17 21:08 Dose: 5 mg Discontinued Medications Acetaminophen (Tylenol) Confirm Administered Dose 325 mg .ROUTE .STK-MED ONE Stop: 05/26/17 19:35 Last Admin: 05/26/17 21:54 Dose: Not Given Carvedilol (Coreg) 6.25 mg PO BIDMEALS [facility] Last Admin: 05/26/17 10:41 Dose: Not Given Enoxaparin Sodium (Lovenox) 40 mg SUBCUT Q24H [facility] Last Admin: 05/27/17 17:05 Dose: 40 mg Levofloxacin/Dextrose 500 mg/ (Premix) 100 mls @ 100 mls/hr IV ONETIME ONE Stop: 05/24/17 21:43 Last Admin: 05/24/17 21:25 Dose: 100 mls/hr Sodium Chloride (Normal Saline) 250 mls @ 100 mls/hr IV ASDIRECTED [facility] Last Admin: 05/24/17 21:25 Dose: 100 mls/hr Levofloxacin/Dextrose 750 mg/ (Premix) 150 mls @ 100 mls/hr IV Q24H [facility] Stop: 05/29/17 21:29 Last Admin: 05/28/17 20:43 Dose: 100 mls/hr Ondansetron HCl (Zofran) 4 mg IV Q4H PRN PRN Reason: Nausea/Vomiting Warfarin Sodium (Coumadin) 5 mg PO Mo@1600 [facility] Warfarin Sodium (Coumadin) 2.5 mg PO SuTuWeThFrSa [facility] Warfarin Sodium (Coumadin) 5 mg PO ONETIME ONE Stop: 05/26/17 16:01 Last Admin: 05/26/17 15:51 Dose: 5 mg Warfarin Sodium (Coumadin) 5 mg PO 1600 [facility] Stop: 05/27/17 17:30 Last Admin: 05/27/17 17:04 Dose: 5 mg Warfarin Sodium (Coumadin) 2.5 mg PO ONETIME ONE Stop: 05/28/17 16:01 Last Admin: 05/28/17 17:16 Dose: 2.5 mg - Exam Physical Findings Comments:: Quality Assessment: Supplemental Oxygen (nc) General: Alert, Oriented, Cooperative, No Acute Distress HEENT: Mucous Membr. Moist/[place], Other (Obvious left facial drooping) Neck: Trachea Midline. No:Carotid Bruit Lungs: Decreased Breath Sounds at bases but improving aeration throughout, Crackles remain, Rales remain, Wheezing remains, but all improving. Cardiovascular: Regular Rate, Irregular Rhythm GI/Abdominal Exam: Normal Bowel Sounds, Soft, Non-Tender Back Exam: Normal Inspection Extremities: Left is nontender to palpation and no increased warmth. No swelling. Non-Tender. clawing of the left hand stable. no contracture. No: Joint Swelling Skin: Warm, Intact Neurological: No New Focal Deficit, Normal Speech, Sensation Intact. No: Strength Equal Bilateral (Left side weaker than the right.) Psy/Mental Status: Normal Affect (Very pleasant,, and always thanks you for any cares that you provide. very appreciative man.), Normal Mood - Problem List & Annotations (1) Pneumonia of both lower lobes due to influenza A virus SNOMED Code(s): 414734357, 099919807 Code(s): J11.00 - FLU DUE TO UNIDENTIFIED FLU VIRUS W UNSP TYPE OF PNEUMONIA Status: Acute Current Visit: Yes (2) Influenza A SNOMED Code(s): 331063987 Code(s): J10.1 - FLU DUE TO OTH IDENT INFLUENZA VIRUS W OTH RESP MANIFEST Status: Acute Current Visit: Yes (3) Respiratory distress, acute SNOMED Code(s): 053891217 Code(s): R06.03 - ACUTE RESPIRATORY DISTRESS Status: Acute Current Visit : Yes (4) CVA (cerebral vascular accident) SNOMED Code(s): 567831830 Code(s): I63.9 - CEREBRAL INFARCTION, UNSPECIFIED Status: Acute Current Visit: Yes Qualifiers: CVA mechanism: unspecified Qualified Code(s): I63.9 - Cerebral infarction, unspecified (5) Atrial fibrillation with controlled ventricular response SNOMED Code(s): 81539572 Code(s): I48.91 - UNSPECIFIED ATRIAL FIBRILLATION Status: Chronic Current Visit: Yes (6) Subtherapeutic international normalized ratio (INR) SNOMED Code(s): 476416882 Code(s): R79.1 - ABNORMAL COAGULATION PROFILE Status: Acute Current Visit : Yes (7) Warfarin anticoagulation SNOMED Code(s): 57981864, 377344421 Code(s): Z79.01 - [facility] (CURRENT) USE OF ANTICOAGULANTS Status: Acute Current Visit: Yes (8) Weakness SNOMED Code(s): 83542044 Code(s): R53.1 - WEAKNESS Status: Acute Current Visit: Yes (9) CAD (coronary artery disease) SNOMED Code(s): 75197680 Code(s): I25.10 - ATHSCL HEART DISEASE OF [place] CORONARY ARTERY W/O ANG PCTRS Status: Acute Current Visit: Yes (10) Pacemaker SNOMED Code(s): 114951200 Code(s): Z95.0 - PRESENCE OF CARDIAC PACEMAKER Status: Chronic Current Visit: Yes (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 (12) Palliative care status SNOMED Code(s): 593788657 Code(s): Z51.5 - ENCOUNTER FOR PALLIATIVE CARE Status: Acute Current Visit: Yes - Problem List Review Problem List Initiated/Reviewed/Updated: Yes - My Orders Last 24 Hours: My Active Orders 05/28/17 10:11 Incentive Spirometry [RT Incentive Spirometry] [RC] Q4HWA 05/28/17 10:17 Weight Daily [Height and Weight] [RC] 06 05/29/17 08:06 Head wo Cont [CT] Routine 05/29/17 09:00 CXR [Chest 2V] [CR] Routine 05/29/17 16:00 Warfarin [Coumadin] 5 mg PO Mo 05/29/17 20:00 Levofloxacin [Levaquin] 750 mg PO Q24H 05/30/17 16:00 Warfarin [Coumadin] 2.5 mg PO SuTuWeThFrSa - Assessment Assessment:: Please see above - Plan Plan:: Patient with numerous comorbidities putting him at higher risk for complication. on antivirals as well as antibiotic therapy for bilateral lower lobe pneumonia secondary to influenza. Clinically improving. DuoNeb 4 times a day and albuterol every 2 hours when necessary. o2 therapy. Blood cultures are negative. Repeat chest x-ray and CT head today. PT and OT working with him to get his strengthening and ambulation with walker. He is anticoagulated chronically with warfarin secondary to atrial fibrillation, his INRs are therapeutic. He is also on Plavix secondary to right CVA. We'll keep him off continuous oxygen therapy doing well with IS. I am going to switch him to po meds.
[2017-05-29] MEDS: Triamcinolone Acetonide 0.1% Oint 15 GM Tube TOP SCH ×2 (11:24→20:55)
[2017-05-29] MEDS: Acetaminophen 325 MG Tab PO PRN (14:39)
[2017-05-29] MEDS ORDERED: Warfarin 5 MG Tab PO SCH ×2 (16:00)
--- NOTE | 2017-05-29 16:11 | CR ---
INDICATION: Pneumonia follow-up. CHEST: AP and lateral views of the chest 05/29/2017, were compared with 2017 and revealed findings compatible with infiltrate - pneumonia in the right upper lobe. The pulmonary vascular congestion present on the previous study is diminished. There remains some evidence of infiltrate in the left lung base; however, it may be slightly diminished compared with the previous study. No other change or new acute process was identified. Bipolar pacemaker leads appear unchanged in position. IMPRESSION: Areas of pneumonia still suggested in the right upper lobe and left lower lobe, possibly lingula. Overall improvement in the appearance of the chest with decreasing congestion - resolution of CHF and interstitial lung edema suggested. MTDD
--- NOTE | 2017-05-29 16:17 | CT ---
INDICATION: Follow-up right CVA. CT HEAD WITHOUT CONTRAST: Serial contiguous 2.5 and 5-mm sections were obtained through the brain 05/29/2017 and compared with 05/24/2017, again revealing a large area of apparent encephalomalacia in the temporal and parietal lobes on the right. The extent of disease is unchanged, therefore the diagnosis is unchanged. No new acute process is suggested. No bleeding site or hematoma was identified. 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 No new acute process intracranially. However, the possibility of maxillary and ethmoidal sinusitis, as well as frontal sinusitis, apparently increased in severity compared with the previous examination, is suggested. Total Exam DLP = 1898.72 mGy-cm. MTDD
[2017-05-29] MEDS: Levofloxacin 750 MG Tab PO SCH (20:54)
[2017-05-29] MEDS: Latanoprost 0.005% Ophth Soln 2.5 ML Bottle EYERT SCH (20:56)
[2017-05-29] MEDS: atorvaSTATin 40 MG Tab PO SCH (20:57)
[2017-05-30] MEDS: Pantoprazole 40 MG Tab.CR PO SCH (06:23)
[2017-05-30] MEDS: Albuterol/Ipratropium 3.0-0.5 MG/3 ML Neb Soln NEB SCH ×4 (07:31→21:08)
[2017-05-30] MEDS: Clopidogrel 75 MG Tab PO SCH (09:02)
[2017-05-30] MEDS: PEG 400/Propylene Glycol Ophth Soln 15 ML Bottle EYELF SCH ×2 (09:03→21:13)
[2017-05-30] MEDS: Perform Pain Reliever Gel 89 ML Tube TP SCH ×3 (09:03→21:12)
[2017-05-30] MEDS: Sodium Chloride 0.65% Nasal Spray 45 ML Bottle NAS SCH ×2 (09:03→21:12)
[2017-05-30] MEDS: Multivitamin Tab PO SCH (09:03)
[2017-05-30] MEDS: Carvedilol 3.125 MG Tab PO SCH ×2 (09:04→17:54)
[2017-05-30] MEDS: Tamsulosin 0.4 MG Cap.ER PO SCH (09:04)
[2017-05-30] MEDS: Aspirin 81 MG Tab.EC PO SCH (09:04)
[2017-05-30] MEDS: Timolol Maleate 0.5% Ophth Soln 5 ML Bottle EYERT SCH (09:05)
[2017-05-30] MEDS: Triamcinolone Acetonide 0.1% Oint 15 GM Tube TOP SCH ×2 (09:06→21:14)
[2017-05-30] MEDS: Acetaminophen 325 MG Tab PO PRN (11:04)
--- NOTE | 2017-05-30 14:03 | PCM.PN ---
- General Info Date of Service: 05/30/17 Functional Status: Reports: Pain Controlled, Tolerating Diet, Urinating, Incentive Spirometry - Review of Systems General: Reports: No Symptoms HEENT: Reports: Sinus Congestion Pulmonary: Reports: Cough Cardiovascular: Reports: No Symptoms Gastrointestinal: Reports: No Symptoms Genitourinary: Reports: No Symptoms Musculoskeletal: Denies: Shoulder Pain, Arm Pain, Hand Pain, Leg Pain Skin: Reports: No Symptoms Neurological: Reports: Weakness Psychiatric: Reports: Other (insomnia) - Patient Data Vitals - Most Recent: Last Vital Signs Temp 98.6 F 05/30/17 07:20 Pulse 84 05/30/17 11:35 Resp 20 05/30/17 07:20 BP 114/67 05/30/17 09:04 Pulse Ox 94 L 05/30/17 11:35 Weight - Most Recent: 79.333 kg I&O - Last 24 Hours: Intake & Output 05/29/17 05/30/17 05/30/17 22:59 06:59 14:59 Intake Total 125 Balance 125 Lab Results Last 24 Hours: Laboratory Results - last 24 hr 05/30/17 Range/Units 06:15 PT 23.4 H (8.7-11.1) INR 2.28 H (0.89-1.13) Jairo Results Last 24 Hours: Microbiology 05/24/17 19:15 Blood - Venous - Lab Draw Aerobic Blood Culture - Final NO GROWTH AFTER 5 DAYS 05/24/17 19:15 Blood - Venous - Lab Draw Anaerobic Blood Culture - Final 05/24/17 16:20 Blood - Venous Aerobic Blood Culture - Final NO GROWTH AFTER 5 DAYS 05/24/17 16:20 Blood - Venous Anaerobic Blood Culture - Final 05/24/17 21:35 Nasal, Left Influenza Type A Antigen Screen - Final Positive Influenza A Ag 05/24/17 21:35 Nasal, Left Influenza Type B Antigen Screen - Final NEGATIVE INFLUENZA B VIRUS AG Med Orders - Current: Current Medications Acetaminophen (Tylenol) 650 mg PO Q4H PRN PRN Reason: Fever Last Admin: 05/29/17 14:39 Dose: 650 mg Acetaminophen (Tylenol) 650 mg PO TID PRN PRN Reason: Pain Last Admin: 05/30/17 11:04 Dose: 650 mg Albuterol (Proventil Neb Soln) 2.5 mg NEB Q2H PRN PRN Reason: Shortness Of Breath/wheezing Last Admin: 05/27/17 02:06 Dose: 2.5 mg Albuterol/Ipratropium (Duoneb 3.0-0.5 Mg/3 Ml) 3 ml NEB QIDRT [facility] Last Admin: 05/30/17 11:22 Dose: 3 ml Aspirin (Halfprin) 81 mg PO DAILY [facility] Last Admin: 05/30/17 09:04 Dose: 81 mg Atorvastatin Calcium (Lipitor) 40 mg PO BEDTIME [facility] Last Admin: 05/29/17 20:57 Dose: 40 mg Carvedilol (Coreg) 3.125 mg PO BIDMEALS [facility] Last Admin: 05/30/17 09:04 Dose: 3.125 mg Clopidogrel Bisulfate (Plavix) 75 mg PO DAILY [facility] Last Admin: 05/30/17 09:02 Dose: 75 mg Furosemide (Lasix) 20 mg PO DAILY PRN PRN Reason: Edema Ibuprofen (Motrin) 600 mg PO Q6H PRN PRN Reason: Fever Last Admin: 05/25/17 12:59 Dose: 600 mg Latanoprost (Xalatan 0.005% Ophth Soln) 0 ml EYERT BEDTIME [facility] Last Admin: 05/29/17 20:56 Dose: 1 drop Levofloxacin (Levaquin) 750 mg PO Q24H [facility] Last Admin: 05/29/17 20:54 Dose: 750 mg Menthol (Perform Pain Reliever) 0 ml TP TID [facility] Last Admin: 05/30/17 09:03 Dose: 89 ml Multivitamins/Minerals/Vitamin C (Tab-A-Karolyn) 1 tab PO DAILY [facility] Last Admin: 05/30/17 09:03 Dose: 1 tab Nitroglycerin (Nitrostat) 0.4 mg SL ASDIRECTED PRN PRN Reason: Chest Pain Pantoprazole Sodium (Protonix) 40 mg PO DAILY@0600 [facility] Last Admin: 05/30/17 06:23 Dose: 40 mg Propylene Glycol (Systane Lubricant) 0 ml EYELF BID [facility] Last Admin: 05/30/17 09:03 Dose: 1 drop Sodium Chloride (Saline Flush) 10 ml FLUSH ASDIRECTED PRN PRN Reason: Keep Vein Open Last Admin: 05/28/17 21:44 Dose: 10 ml Sodium Chloride (Dellrose Nasal [place]) 0 ml NARCISA BID [facility] Last Admin: 05/30/17 09:03 Dose: 1 spray Tamsulosin HCl (Flomax) 0.4 mg PO DAILY [facility] Last Admin: 05/30/17 09:04 Dose: 0.4 mg Timolol Maleate (Timoptic 0.5% Ophth Soln) 0 ml EYERT DAILY [facility] Last Admin: 05/30/17 09:05 Dose: 1 drop Triamcinolone Acetonide (Triamcinolone Acetonide 0.1% Oint) 0 gm TOP BID [facility] Last Admin: 05/30/17 09:06 Dose: 1 applic Warfarin Sodium (Coumadin Sliding Scale) 1 each PO .PHARMACYTODOSE [facility] Warfarin Sodium (Coumadin) 5 mg PO Mo [facility] Last Admin: 05/29/17 17:35 Dose: 5 mg Warfarin Sodium (Coumadin) 2.5 mg PO SuTuWeThFrSa [facility] Zolpidem Tartrate (Ambien) 5 mg PO BEDTIME PRN PRN Reason: Insomnia Last Admin: 05/27/17 21:08 Dose: 5 mg Discontinued Medications Acetaminophen (Tylenol) Confirm Administered Dose 325 mg .ROUTE .STK-MED ONE Stop: 05/26/17 19:35 Last Admin: 05/26/17 21:54 Dose: Not Given Carvedilol (Coreg) 6.25 mg PO BIDMEALS [facility] Last Admin: 05/26/17 10:41 Dose: Not Given Enoxaparin Sodium (Lovenox) 40 mg SUBCUT Q24H [facility] Last Admin: 05/27/17 17:05 Dose: 40 mg Levofloxacin/Dextrose 500 mg/ (Premix) 100 mls @ 100 mls/hr IV ONETIME ONE Stop: 05/24/17 21:43 Last Admin: 05/24/17 21:25 Dose: 100 mls/hr Sodium Chloride (Normal Saline) 250 mls @ 100 mls/hr IV ASDIRECTED [facility] Last Admin: 05/24/17 21:25 Dose: 100 mls/hr Levofloxacin/Dextrose 750 mg/ (Premix) 150 mls @ 100 mls/hr IV Q24H [facility] Stop: 05/29/17 21:29 Last Admin: 05/28/17 20:43 Dose: 100 mls/hr Ondansetron HCl (Zofran) 4 mg IV Q4H PRN PRN Reason: Nausea/Vomiting Oseltamivir Phosphate (Tamiflu) 75 mg PO BID [facility] Stop: 05/29/17 21:01 Last Admin: 05/29/17 20:57 Dose: 75 mg Warfarin Sodium (Coumadin) 5 mg PO Mo@1600 [facility] Warfarin Sodium (Coumadin) 2.5 mg PO SuTuWeThFrSa [facility] Warfarin Sodium (Coumadin) 5 mg PO ONETIME ONE Stop: 05/26/17 16:01 Last Admin: 05/26/17 15:51 Dose: 5 mg Warfarin Sodium (Coumadin) 5 mg PO 1600 [facility] Stop: 05/27/17 17:30 Last Admin: 05/27/17 17:04 Dose: 5 mg Warfarin Sodium (Coumadin) 2.5 mg PO ONETIME ONE Stop: 05/28/17 16:01 Last Admin: 05/28/17 17:16 Dose: 2.5 mg - Exam Physical Findings Comments:: Quality Assessment: RA General: Alert, Oriented, Cooperative, No Acute Distress HEENT: Mucous Membr. Moist/[place], Other (Obvious left facial drooping), no maxillary or frontal sinus tenderness or warmth to palpation. Neck: supple. Lungs: Breath Sounds at bases demonstrate improved aeration throughout, Crackles remain, Rales remain, Wheezing absent today. Cardiovascular: Regular Rate, Irregular Rhythm GI/Abdominal Exam: Normal Bowel Sounds, Soft, Non-Tender Back Exam: Normal Inspection Extremities: Left is nontender to palpation and no increased warmth. No swelling. Non-Tender. Mild clawing of the left hand stable. no contracture. No: Joint Swelling Skin: Warm, Intact Neurological: No New Focal Deficit, Normal Speech, Sensation Intact. No: Strength Equal Bilateral (Left side weaker than the right.) Psy/Mental Status: Normal Affect Normal Mood but was on the call light all night asking for several different things and had difficulty sleeping due to restlessness. states hes tired now. - Problem List & Annotations (1) Pneumonia of both lower lobes due to influenza A virus SNOMED Code(s): 472262037, 280506300 Code(s): J11.00 - FLU DUE TO UNIDENTIFIED FLU VIRUS W UNSP TYPE OF PNEUMONIA Status: Acute Current Visit: Yes (2) Influenza A SNOMED Code(s): 461601297 Code(s): J10.1 - FLU DUE TO OTH IDENT INFLUENZA VIRUS W OTH RESP MANIFEST Status: Acute Current Visit: Yes (3) Respiratory distress, acute SNOMED Code(s): 359470003 Code(s): R06.03 - ACUTE RESPIRATORY DISTRESS Status: Resolved Current Visit: Yes (4) CVA (cerebral vascular accident) SNOMED Code(s): 918459393 Code(s): I63.9 - CEREBRAL INFARCTION, UNSPECIFIED Status: Acute Current Visit: Yes Qualifiers: CVA mechanism: unspecified Qualified Code(s): I63.9 - Cerebral infarction, unspecified (5) Atrial fibrillation with controlled ventricular response SNOMED Code(s): 32377682 Code(s): I48.91 - UNSPECIFIED ATRIAL FIBRILLATION Status: Chronic Current Visit: Yes (6) Subtherapeutic international normalized ratio (INR) SNOMED Code(s): 378253446 Code(s): R79.1 - ABNORMAL COAGULATION PROFILE Status: Resolved Current Visit: Yes (7) Warfarin anticoagulation SNOMED Code(s): 59381743, 118349118 Code(s): Z79.01 - SENIOR CARE (CURRENT) USE OF ANTICOAGULANTS Status: Chronic Current Visit: Yes (8) Sinusitis, acute SNOMED Code(s): 87483123 Code(s): J01.90 - ACUTE SINUSITIS, UNSPECIFIED Status: Acute Current Visit: Yes Qualifiers: Sinusitis location: pansinusitis Recurrence: non-recurrent Qualified Code (s): J01.40 - Acute pansinusitis, unspecified (9) Weakness SNOMED Code(s): 95337350 Code(s): R53.1 - WEAKNESS Status: Chronic Current Visit: Yes (10) CAD (coronary artery disease) SNOMED Code(s): 13799001 Code(s): I25.10 - ATHSCL HEART DISEASE OF [place] CORONARY ARTERY W/O ANG PCTRS Status: Chronic Current Visit: Yes (11) Pacemaker SNOMED Code(s): 663481777 Code(s): Z95.0 - PRESENCE OF CARDIAC PACEMAKER Status: Chronic Current Visit: Yes (12) Lobster-claw left hand SNOMED Code(s): 81509526 Code(s): Q71.62 - LOBSTER-CLAW LEFT HAND Status: Acute Current Visit: Yes Annotation/Comment:: starting. (13) Palliative care status SNOMED Code(s): 316638796 Code(s): Z51.5 - ENCOUNTER FOR PALLIATIVE CARE Status: Acute Current Visit: Yes - Problem List Review Problem List Initiated/Reviewed/Updated: Yes - My Orders Last 24 Hours: My Active Orders 05/29/17 16:00 Warfarin [Coumadin] 5 mg PO Mo 05/29/17 20:00 Levofloxacin [Levaquin] 750 mg PO Q24H 05/30/17 16:00 Warfarin [Coumadin] 2.5 mg PO SuTuWeThFrSa 05/31/17 05:10 INR,PT,PROTHROMBIN TIME [COAG] DAILY 06/01/17 05:10 INR,PT,PROTHROMBIN TIME [COAG] DAILY - Assessment Assessment:: Please see above - Plan Plan:: Patient with numerous comorbidities putting him at higher risk for complication. on antivirals as well as antibiotic therapy for bilateral lower lobe pneumonia secondary to influenza. Clinically improving. DuoNeb 4 times a day and albuterol every 2 hours when necessary. o2 therapy has been weaned off. Blood cultures are negative. Repeat chest x-ray shows improvement and CT head stable without extension of right CVA. Now shows pansinusitis however. typical of current infection. getting nasal saline and remains on appropriate antibiotic although likely post inflammory. will follow clinically. PT and OT working with him to get his strengthening and ambulation with walker. They are working with his today regarding transition back to home in order to determine if this is feasible. She tells me she can manage and wants him to come home. He is anticoagulated chronically with warfarin secondary to atrial fibrillation, his INRs are therapeutic. He is also on Plavix secondary to right CVA. He continues doing well with IS.Anticipate d/c tomorrow with home health.
[2017-05-30] MEDS: Ibuprofen 600 MG Tab PO PRN (14:05)
[2017-05-30] MEDS ORDERED: Warfarin 2.5 MG Tab PO SCH (16:00)
[2017-05-30] MEDS: Levofloxacin 750 MG Tab PO SCH (20:55)
[2017-05-30] MEDS: atorvaSTATin 40 MG Tab PO SCH (21:11)
[2017-05-30] MEDS: Latanoprost 0.005% Ophth Soln 2.5 ML Bottle EYERT SCH (21:15)
[2017-05-31] MEDS: Pantoprazole 40 MG Tab.CR PO SCH (06:12)
[2017-05-31] MEDS: Albuterol/Ipratropium 3.0-0.5 MG/3 ML Neb Soln NEB SCH ×2 (07:30→11:05)
[2017-05-31] MEDS: Carvedilol 3.125 MG Tab PO SCH (08:44)
[2017-05-31] MEDS: Acetaminophen 325 MG Tab PO PRN (08:44)
[2017-05-31] MEDS: Aspirin 81 MG Tab.EC PO SCH (08:44)
[2017-05-31] MEDS: Tamsulosin 0.4 MG Cap.ER PO SCH (08:44)
[2017-05-31] MEDS: Sodium Chloride 0.65% Nasal Spray 45 ML Bottle NAS SCH (08:45)
[2017-05-31] MEDS: PEG 400/Propylene Glycol Ophth Soln 15 ML Bottle EYELF SCH (08:46)
[2017-05-31] MEDS: Perform Pain Reliever Gel 89 ML Tube TP SCH (08:46)
[2017-05-31] MEDS: Clopidogrel 75 MG Tab PO SCH (08:46)
--- NOTE | 2017-05-31 08:46 | PCM.DCSUM1 ---
Discharge Summary - Hospital Course HPI Initial Comments: 86-year-old gentleman presented to the emergency department with increasing debility, malaise, shortness of breath, dyspnea on exertion, increased cough and congestion. Also noting wheezing intermittently. Symptoms ongoing and worsening over 3 or 4 days. Sudden onset. - Discharge Data Discharge Date: 05/31/17 Discharge Disposition: Home, W Home Health Agency 06 Condition: Fair - Discharge Diagnosis/Problem(s) (1) Pneumonia of both lower lobes due to influenza A virus SNOMED Code(s): 206551459, 639458845 ICD Code: J11.00 - FLU DUE TO UNIDENTIFIED FLU VIRUS W UNSP TYPE OF PNEUMONIA Status: Acute Current Visit: Yes (2) Influenza A SNOMED Code(s): 353334209 ICD Code: J10.1 - FLU DUE TO OTH IDENT INFLUENZA VIRUS W OTH RESP MANIFEST Status: Acute Current Visit: Yes (3) Respiratory distress, acute SNOMED Code(s): 265016236 ICD Code: R06.03 - ACUTE RESPIRATORY DISTRESS Status: Resolved Current Visit: Yes (4) CVA (cerebral vascular accident) SNOMED Code(s): 795675007 ICD Code: I63.9 - CEREBRAL INFARCTION, UNSPECIFIED Status: Acute Current Visit: Yes Qualifiers: CVA mechanism: unspecified Qualified Code(s): I63.9 - Cerebral infarction, unspecified (5) Atrial fibrillation with controlled ventricular response SNOMED Code(s): 03047868 ICD Code: I48.91 - UNSPECIFIED ATRIAL FIBRILLATION Status: Chronic Current Visit: Yes (6) Subtherapeutic international normalized ratio (INR) SNOMED Code(s): 888725167 ICD Code: R79.1 - ABNORMAL COAGULATION PROFILE Status: Resolved Current Visit: Yes (7) Warfarin anticoagulation SNOMED Code(s): 84122902, 022689359 ICD Code: Z79.01 - PATIENT SUPPORT REPRESENTATIVE (CURRENT) USE OF ANTICOAGULANTS Status: Chronic Current Visit: Yes (8) Sinusitis, acute SNOMED Code(s): 00373844 ICD Code: J01.90 - ACUTE SINUSITIS, UNSPECIFIED Status: Acute Current Visit: Yes Qualifiers: Sinusitis location: pansinusitis Recurrence: non-recurrent Qualified Code (s): J01.40 - Acute pansinusitis, unspecified (9) Weakness SNOMED Code(s): 62723904 ICD Code: R53.1 - WEAKNESS Status: Chronic Current Visit: Yes (10) CAD (coronary artery disease) SNOMED Code(s): 39310882 ICD Code: I25.10 - ATHSCL HEART DISEASE OF [place] CORONARY ARTERY W/O ANG PCTRS Status: Chronic Current Visit: Yes (11) Pacemaker SNOMED Code(s): 475277244 ICD Code: Z95.0 - PRESENCE OF CARDIAC PACEMAKER Status: Chronic Current Visit: Yes (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 (13) Palliative care status SNOMED Code(s): 871205578 ICD Code: Z51.5 - ENCOUNTER FOR PALLIATIVE CARE Status: Acute Current Visit: Yes - Patient Summary/Data Consults: Consultations 05/29/17 11:42 Consult to Home Health [CONS] Routine Comment: Physician Instructions: Reason for Consult: s/p right cva with left weakness; nebs/pneumonia Hospital Course: Admitted to inpatient for clinical and objective right lower lobe pneumonia, positive influenza A, worsening left-sided weakness with CT scan positive for new CVA on the right along with chronic changes from prior CVA on the right as well. Unfortunately he has been on antiplatelet and anticoagulation therapy for secondary preventative measures. His INR was subtherapeutic. Warfarin dosing has been appropriately adjusted to maintain a therapeutic INR. He was started on IV antibiotics as well as oral antivirals. Physical therapy/occupational therapy was started with regards to his new onset right CVA and left-sided weakness in order to assess appropriateness for home cares and the ability of his to manage at home. Respiratory therapy worked with DuoNeb 4 times a day as well as incentive spirometry which did improve his respiratory status and eliminated his need for oxygen. Comorbidities were also medically managed as well however adjustments to home medications did have to be made secondary to low blood pressures and pulse. These adjustments of been documented in the chart. He will require home health for medication management, INR checks, PT OT for home evaluation safety and continued therapies for strengthening and prevention of complications regarding left-sided weakness and declining of the left hand. He will continue to follow with INR clinic. He has completed his antibiotic course. Overall his prognosis is poor however they wish to continue anticoagulation despite his risk of fall and potential hemorrhage. - Patient Instructions Diet: Heart Healthy Diet Activity: As Tolerated, Cough & Deep Breathe Driving: Do Not Drive Showering/Bathing: May Shower Notify Provider of: Fever, Swelling and Redness (to legs or arms), Nausea and/ or Vomiting (or inability to tolerate oral medications) - Discharge Plan Prescriptions/Med Rec: Albuterol/Ipratropium [DuoNeb 3.0-0.5 MG/3 ML] 3 ml NEB QID #90 neb Carvedilol [Coreg] 3.125 mg PO BIDMEALS #60 tablet Warfarin [Coumadin] 5 mg PO DAILY #30 tablet Home Medications: Home Meds Acetaminophen [Tylenol] 650 mg PO TID PRN 03/24/17 [History] Calcium Carbonate/Vitamin D3 [Calcium 600-Vit D3 400 Tablet] 1 tab PO DAILY 08/05 [History] Clopidogrel Bisulfate [Clopidogrel] 75 mg PO DAILY 03/24/17 [History] Dextran 70/Hypromellose [Artificial Tears] 1 drop EYELF BID 03/24/17 [History] Latanoprost [Xalatan 0.005% Ophth Soln] 1 drop EYERT BEDTIME 03/24/17 [History] Lutein 20 mg PO DAILY 03/24/17 [History] Multivitamin [Multivitamins] 1 tab PO DAILY 03/24/17 [History] Nitroglycerin 0.4 mg SL ASDIRECTED PRN 03/24/17 [History] Ranitidine [Zantac] 150 mg PO BEDTIME 03/24/17 [History] Tamsulosin [Flomax] 0.4 mg PO DAILY 03/24/17 [History] Timolol Maleate [Timoptic 0.5% Ophth Soln] 1 drop EYERT DAILY 03/24/17 [History] Triamcinolone Acetonide [Triamcinolone Acetonide 0.1% Crm] 1 applic TOP BID 08/05 [History] atorvaSTATin [Lipitor] 40 mg PO BEDTIME 03/24/17 [History] Aspirin [Halfprin] 81 mg PO DAILY tab.ec 03/26/17 [Rx] Omeprazole 20 mg PO DAILY 05/25/17 [History] Albuterol/Ipratropium [DuoNeb 3.0-0.5 MG/3 ML] 3 ml NEB QID #90 neb 05/31/17 [Rx ] Carvedilol [Coreg] 3.125 mg PO BIDMEALS #60 tablet 05/31/17 [Rx] Furosemide [Lasix] 20 mg PO DAILY PRN #60 05/31/17 [Rx] Warfarin [Coumadin] 5 mg PO DAILY #30 tablet 05/31/17 [Rx] Referrals: Ellis Coleman MD [Primary Care Provider] - - Discharge Summary/Plan Comment DC Time >30 min.: Yes Discharge Summary/Plan Comment: he will take warfarin 5 mg today and have his INR checked tomorrow for dosing. Yesterdays dose 2.5 mg at 1600. MAR and dosing of meds has been printed for them to take home and for home health and INR clinic to review. - General Info Date of Service: 05/31/17 Subjective Update: Functional Status: Reports: Pain Controlled, Tolerating Diet, Urinating, Incentive Spirometry - Review of Systems General: Reports: No Symptoms HEENT: Reports: Sinus Congestion Pulmonary: Reports: Cough Cardiovascular: Reports: No Symptoms Gastrointestinal: Reports: No Symptoms Genitourinary: Reports: No Symptoms Musculoskeletal: Denies: Shoulder Pain, Arm Pain, Hand Pain, Leg Pain Skin: Reports: No Symptoms Neurological: Reports: Weakness Psychiatric: Reports: Other (insomnia improved) - Patient Data Vitals - Most Recent: Vital Signs (72 hours) 05/28/17 05/28/17 05/28/17 12:00 15:40 16:00 Temperature [ Axillary] Temperature [ 98.6 F 97.2 F Oral] Pulse, Peripheral Pulse, 86 Peripheral [ Left Pulse Oximetry] Pulse, 80 74 Peripheral [ Right] Respiratory 20 20 Rate Blood Pressure Blood Pressure 125/82 105/73 [Left Upper Arm ] Blood Pressure [Right Upper Arm] O2 Sat by Pulse 93 L 92 L Oximetry O2 Sat by Pulse Oximetry [ Nasal Cannula] O2 Sat by Pulse 95 Oximetry [Room Air] 05/28/17 05/28/17 05/28/17 17:14 20:00 21:12 Temperature [ Axillary] Temperature [ 98.1 F Oral] Pulse, 74 Peripheral Pulse, 86 Peripheral [ Left Pulse Oximetry] Pulse, 80 80 Peripheral [ Right] Respiratory 20 Rate Blood Pressure 105/73 Blood Pressure 126/88 [Left Upper Arm ] Blood Pressure [Right Upper Arm] O2 Sat by Pulse 96 Oximetry O2 Sat by Pulse Oximetry [ Nasal Cannula] O2 Sat by Pulse Oximetry [Room Air] 05/29/17 05/29/17 05/29/17 00:00 04:00 07:30 Temperature [ 98.3 F 98.0 F Axillary] Temperature [ Oral] Pulse, Peripheral Pulse, 80 Peripheral [ Left Pulse Oximetry] Pulse, 79 67 Peripheral [ Right] Respiratory 20 18 Rate Blood Pressure Blood Pressure [Left Upper Arm ] Blood Pressure 124/77 110/66 [Right Upper Arm] O2 Sat by Pulse 93 L 94 L Oximetry O2 Sat by Pulse Oximetry [ Nasal Cannula] O2 Sat by Pulse 90 L Oximetry [Room Air] 05/29/17 05/29/17 05/29/17 07:34 08:00 08:25 Temperature [ 98.4 F Axillary] Temperature [ Oral] Pulse, 70 Peripheral Pulse, 80 Peripheral [ Left Pulse Oximetry] Pulse, 70 Peripheral [ Right] Respiratory 20 Rate Blood Pressure 133/67 Blood Pressure 133/67 [Left Upper Arm ] Blood Pressure [Right Upper Arm] O2 Sat by Pulse 93 L Oximetry O2 Sat by Pulse Oximetry [ Nasal Cannula] O2 Sat by Pulse Oximetry [Room Air] 05/29/17 05/29/17 05/29/17 10:55 10:56 12:00 Temperature [ 98.2 F Axillary] Temperature [ Oral] Pulse, Peripheral Pulse, 76 76 Peripheral [ Left Pulse Oximetry] Pulse, 72 Peripheral [ Right] Respiratory 20 Rate Blood Pressure Blood Pressure 124/68 [Left Upper Arm ] Blood Pressure [Right Upper Arm] O2 Sat by Pulse 93 L Oximetry O2 Sat by Pulse Oximetry [ Nasal Cannula] O2 Sat by Pulse 92 L Oximetry [Room Air] 05/29/17 05/29/17 05/29/17 14:17 15:32 15:33 Temperature [ Axillary] Temperature [ Oral] Pulse, Peripheral Pulse, 72 76 Peripheral [ Left Pulse Oximetry] Pulse, Peripheral [ Right] Respiratory Rate Blood Pressure Blood Pressure [Left Upper Arm ] Blood Pressure [Right Upper Arm] O2 Sat by Pulse Oximetry O2 Sat by Pulse Oximetry [ Nasal Cannula] O2 Sat by Pulse 93 L 94 L Oximetry [Room Air] 05/29/17 05/29/17 05/29/17 16:00 17:42 20:00 Temperature [ 97.6 F 97.6 F Axillary] Temperature [ Oral] Pulse, 78 Peripheral Pulse, Peripheral [ Left Pulse Oximetry] Pulse, 78 80 Peripheral [ Right] Respiratory 20 20 Rate Blood Pressure 117/84 Blood Pressure 117/84 132/88 [Left Upper Arm ] Blood Pressure [Right Upper Arm] O2 Sat by Pulse 94 L 94 L Oximetry O2 Sat by Pulse Oximetry [ Nasal Cannula] O2 Sat by Pulse Oximetry [Room Air] 05/29/17 05/29/17 05/30/17 21:00 21:07 00:00 Temperature [ Axillary] Temperature [ 97.9 F Oral] Pulse, Peripheral Pulse, 70 70 Peripheral [ Left Pulse Oximetry] Pulse, 82 70 79 Peripheral [ Right] Respiratory 17 Rate Blood Pressure Blood Pressure [Left Upper Arm ] Blood Pressure 102/64 [Right Upper Arm] O2 Sat by Pulse 93 L Oximetry O2 Sat by Pulse 94 L Oximetry [ Nasal Cannula] O2 Sat by Pulse Oximetry [Room Air] 05/30/17 05/30/17 05/30/17 04:00 07:20 07:45 Temperature [ 98.3 F 98.6 F Axillary] Temperature [ Oral] Pulse, Peripheral Pulse, 78 Peripheral [ Left Pulse Oximetry] Pulse, 76 74 72 Peripheral [ Right] Respiratory 18 20 Rate Blood Pressure Blood Pressure 114/67 [Left Upper Arm ] Blood Pressure 95/71 [Right Upper Arm] O2 Sat by Pulse 98 94 L Oximetry O2 Sat by Pulse 94 L Oximetry [ Nasal Cannula] O2 Sat by Pulse Oximetry [Room Air] 05/30/17 05/30/17 05/30/17 09:04 11:35 15:25 Temperature [ Axillary] Temperature [ Oral] Pulse, 74 Peripheral Pulse, 84 80 Peripheral [ Left Pulse Oximetry] Pulse, Peripheral [ Right] Respiratory Rate Blood Pressure 114/67 Blood Pressure [Left Upper Arm ] Blood Pressure [Right Upper Arm] O2 Sat by Pulse Oximetry O2 Sat by Pulse Oximetry [ Nasal Cannula] O2 Sat by Pulse 94 L 95 Oximetry [Room Air] 05/30/17 05/30/17 05/30/17 16:14 17:54 21:00 Temperature [ 98.2 F Axillary] Temperature [ 98.6 F Oral] Pulse, 77 Peripheral Pulse, 81 Peripheral [ Left Pulse Oximetry] Pulse, 77 Peripheral [ Right] Respiratory 18 20 Rate Blood Pressure 125/78 Blood Pressure 125/78 [Left Upper Arm ] Blood Pressure 111/77 [Right Upper Arm] O2 Sat by Pulse 94 L 93 L Oximetry O2 Sat by Pulse Oximetry [ Nasal Cannula] O2 Sat by Pulse Oximetry [Room Air] 05/30/17 05/31/17 05/31/17 23:00 00:30 04:00 Temperature [ Axillary] Temperature [ 98.5 F Oral] Pulse, Peripheral Pulse, Peripheral [ Left Pulse Oximetry] Pulse, 75 Peripheral [ Right] Respiratory 20 18 Rate Blood Pressure Blood Pressure [Left Upper Arm ] Blood Pressure 112/75 [Right Upper Arm] O2 Sat by Pulse 96 93 L Oximetry O2 Sat by Pulse 95 Oximetry [ Nasal Cannula] O2 Sat by Pulse Oximetry [Room Air] 05/31/17 05/31/17 05/31/17 07:45 07:59 08:44 Temperature [ 98.1 F Axillary] Temperature [ Oral] Pulse, 73 Peripheral Pulse, 76 Peripheral [ Left Pulse Oximetry] Pulse, 73 Peripheral [ Right] Respiratory 20 Rate Blood Pressure 112/74 Blood Pressure [Left Upper Arm ] Blood Pressure 112/74 [Right Upper Arm] O2 Sat by Pulse 93 L Oximetry O2 Sat by Pulse Oximetry [ Nasal Cannula] O2 Sat by Pulse 93 L Oximetry [Room Air] 05/31/17 11:20 Temperature [ Axillary] Temperature [ Oral] Pulse, Peripheral Pulse, 78 Peripheral [ Left Pulse Oximetry] Pulse, Peripheral [ Right] Respiratory Rate Blood Pressure Blood Pressure [Left Upper Arm ] Blood Pressure [Right Upper Arm] O2 Sat by Pulse Oximetry O2 Sat by Pulse Oximetry [ Nasal Cannula] O2 Sat by Pulse 94 L Oximetry [Room Air] Weight - Most Recent: 81.238 kg I&O - Last 24 hours: Admit weight: 81.057 kg Intake & Output 05/30/17 05/31/17 05/31/17 22:59 06:59 14:59 Other: Breakfast Percent 85 Consumed Output, Number of Diapers 1 1 Number of Bowel Movements 1 Number of Incontinent 1 1 Voids Imaging Impressions - Last 24 hrs: Head CT x 2-see reports CXR-see reports Lab Results - Last 24 hrs: Laboratory Tests 05/24/17 05/24/17 05/24/17 Range/Units 16:30 16:30 16:30 WBC 4.8 (4.5-12.0) X10-3/uL RBC 4.17 L (4.30-5.75) x10(6)uL Hgb 13.0 (11.5-15.5) g/dL Hct 38.7 (30.0-51.3) % MCV 92.7 (80-96) fL MCH 31.1 (27.7-33.6) pg MCHC 33.5 (32.2-35.4) g/dL RDW 14.3 (11.5-15.5) % Plt Count 151 (125-369) X10(3)uL MPV 8.2 (7.4-10.4) fL Neut % (Auto) 77.5 (46-82) % Lymph % (Auto) 9.1 L (13-37) % [place] % (Auto) 9.5 (4-12) % Eos % (Auto) 3 (1.0-5.0) % Baso % (Auto) 1 (0-2) % Neut # (Auto) 3.7 (1.6-8.3) # Lymph # (Auto) 0.4 L (0.6-5.0) # [place] # (Auto) 0.5 (0.0-1.3) # Eos # (Auto) 0.2 (0.0-0.8) # Baso # (Auto) 0.0 (0.0-0.2) # Add Manual Diff Neutrophils % (Manual) (46-82) % Lymphocytes % (Manual) (13-37) % Monocytes % (Manual) (4-12) % Eosinophils % (Manual) (0-5) % PT 26.5 H (8.7-11.1) INR 2.57 H (0.89-1.13) Sodium 143 (135-145) mmol/L Potassium 4.1 (3.5-5.3) mmol/L Chloride 104 (100-110) mmol/L Carbon Dioxide 33 H (21-32) mmol/L BUN 12 (7-18) mg/dL Creatinine 1.0 (0.70-1.30) mg/dL Est Cr Clr Drug Dosing TNP Estimated GFR (MDRD) > 60 (>60) BUN/Creatinine Ratio 12.0 (9-20) Glucose 100 (80-116) mg/dL Lactic Acid (0.4-2.2) mmol/L Calcium 8.9 (8.6-10.2) mg/dL Total Bilirubin (0.1-1.3) mg/dL AST (5-25) IU/L ALT (12-36) U/L Alkaline Phosphatase (56-112) IU/L Troponin I (<0.017-0.056) ng/mL Total Protein (6.0-8.0) g/dL Albumin (3.2-4.6) g/dL Globulin g/dL Albumin/Globulin Ratio Urine Color (YELLOW) Urine Appearance (CLEAR) Urine pH (5.0-6.5) Ur Specific [place] (1.010-1.025) Urine Protein (NEGATIVE) mg/dL Urine Glucose (UA) (NEGATIVE) mg/dL Urine Ketones (NEGATIVE) mg/dL Urine Occult Blood (NEGATIVE) Urine Nitrite (NEGATIVE) Urine Bilirubin (NEGATIVE) Urine Urobilinogen (NEGATIVE) mg/dL Ur Leukocyte Esterase (NEGATIVE) Urine RBC (0) Urine WBC (0) Ur Squamous Epith Cells (NS,R,O) Urine Bacteria (NS) 05/24/17 05/24/17 05/25/17 Range/Units 16:30 16:30 01:30 WBC (4.5-12.0) X10-3/uL RBC (4.30-5.75) x10(6)uL Hgb (11.5-15.5) g/dL Hct (30.0-51.3) % MCV (80-96) fL MCH (27.7-33.6) pg MCHC (32.2-35.4) g/dL RDW (11.5-15.5) % Plt Count (125-369) X10(3)uL MPV (7.4-10.4) fL Neut % (Auto) (46-82) % Lymph % (Auto) (13-37) % [place] % (Auto) (4-12) % Eos % (Auto) (1.0-5.0) % Baso % (Auto) (0-2) % Neut # (Auto) (1.6-8.3) # Lymph # (Auto) (0.6-5.0) # [place] # (Auto) (0.0-1.3) # Eos # (Auto) (0.0-0.8) # Baso # (Auto) (0.0-0.2) # Add Manual Diff Neutrophils % (Manual) (46-82) % Lymphocytes % (Manual) (13-37) % Monocytes % (Manual) (4-12) % Eosinophils % (Manual) (0-5) % PT (8.7-11.1) INR (0.89-1.13) Sodium (135-145) mmol/L Potassium (3.5-5.3) mmol/L Chloride (100-110) mmol/L Carbon Dioxide (21-32) mmol/L BUN (7-18) mg/dL Creatinine (0.70-1.30) mg/dL Est Cr Clr Drug Dosing Estimated GFR (MDRD) (>60) BUN/Creatinine Ratio (9-20) Glucose (80-116) mg/dL Lactic Acid 0.9 (0.4-2.2) mmol/L Calcium (8.6-10.2) mg/dL Total Bilirubin (0.1-1.3) mg/dL AST (5-25) IU/L ALT (12-36) U/L Alkaline Phosphatase (56-112) IU/L Troponin I < 0.017 L (<0.017-0.056) ng/mL Total Protein (6.0-8.0) g/dL Albumin (3.2-4.6) g/dL Globulin g/dL Albumin/Globulin Ratio Urine Color Yellow (YELLOW) Urine Appearance Clear (CLEAR) Urine pH 8.0 H (5.0-6.5) Ur Specific [place] 1.015 (1.010-1.025) Urine Protein Negative (NEGATIVE) mg/dL Urine Glucose (UA) Normal (NEGATIVE) mg/dL Urine Ketones Negative (NEGATIVE) mg/dL Urine Occult Blood Negative (NEGATIVE) Urine Nitrite Negative (NEGATIVE) Urine Bilirubin Negative (NEGATIVE) Urine Urobilinogen Normal (NEGATIVE) mg/dL Ur Leukocyte Esterase Negative (NEGATIVE) Urine RBC 0-5 (0) Urine WBC 0-5 (0) Ur Squamous Epith Cells Rare (NS,R,O) Urine Bacteria Few H (NS) 05/25/17 05/25/17 05/26/17 Range/Units 06:20 06:20 13:55 WBC 4.1 L (4.5-12.0) X10-3/uL RBC 3.95 L (4.30-5.75) x10(6)uL Hgb 12.1 (11.5-15.5) g/dL Hct 36.4 (30.0-51.3) % MCV 92.0 (80-96) fL MCH 30.6 (27.7-33.6) pg MCHC 33.3 (32.2-35.4) g/dL RDW 14.0 (11.5-15.5) % Plt Count 130 (125-369) X10(3)uL MPV 8.3 (7.4-10.4) fL Neut % (Auto) (46-82) % Lymph % (Auto) (13-37) % [place] % (Auto) (4-12) % Eos % (Auto) (1.0-5.0) % Baso % (Auto) (0-2) % Neut # (Auto) (1.6-8.3) # Lymph # (Auto) (0.6-5.0) # [place] # (Auto) (0.0-1.3) # Eos # (Auto) (0.0-0.8) # Baso # (Auto) (0.0-0.2) # Add Manual Diff Yes Neutrophils % (Manual) 68 (46-82) % Lymphocytes % (Manual) 20 (13-37) % Monocytes % (Manual) 7 (4-12) % Eosinophils % (Manual) 5 (0-5) % PT 12.1 H (8.7-11.1) INR 1.20 H (0.89-1.13) Sodium 141 (135-145) mmol/L Potassium 3.8 (3.5-5.3) mmol/L Chloride 104 (100-110) mmol/L Carbon Dioxide 30 (21-32) mmol/L BUN 10 (7-18) mg/dL Creatinine 1.0 (0.70-1.30) mg/dL Est Cr Clr Drug Dosing 52.25 Estimated GFR (MDRD) > 60 (>60) BUN/Creatinine Ratio 10.0 (9-20) Glucose 85 (80-116) mg/dL Lactic Acid (0.4-2.2) mmol/L Calcium 8.5 L (8.6-10.2) mg/dL Total Bilirubin 0.5 (0.1-1.3) mg/dL AST 17 (5-25) IU/L ALT 18 (12-36) U/L Alkaline Phosphatase 67 (56-112) IU/L Troponin I (<0.017-0.056) ng/mL Total Protein 5.7 L (6.0-8.0) g/dL Albumin 2.6 L (3.2-4.6) g/dL Globulin 3.1 g/dL Albumin/Globulin Ratio 0.8 Urine Color (YELLOW) Urine Appearance (CLEAR) Urine pH (5.0-6.5) Ur Specific [place] (1.010-1.025) Urine Protein (NEGATIVE) mg/dL Urine Glucose (UA) (NEGATIVE) mg/dL Urine Ketones (NEGATIVE) mg/dL Urine Occult Blood (NEGATIVE) Urine Nitrite (NEGATIVE) Urine Bilirubin (NEGATIVE) Urine Urobilinogen (NEGATIVE) mg/dL Ur Leukocyte Esterase (NEGATIVE) Urine RBC (0) Urine WBC (0) Ur Squamous Epith Cells (NS,R,O) Urine Bacteria (NS) 05/27/17 05/28/17 05/29/17 Range/Units 06:25 06:25 06:00 WBC (4.5-12.0) X10-3/uL RBC (4.30-5.75) x10(6)uL Hgb (11.5-15.5) g/dL Hct (30.0-51.3) % MCV (80-96) fL MCH (27.7-33.6) pg MCHC (32.2-35.4) g/dL RDW (11.5-15.5) % Plt Count (125-369) X10(3)uL MPV (7.4-10.4) fL Neut % (Auto) (46-82) % Lymph % (Auto) (13-37) % [place] % (Auto) (4-12) % Eos % (Auto) (1.0-5.0) % Baso % (Auto) (0-2) % Neut # (Auto) (1.6-8.3) # Lymph # (Auto) (0.6-5.0) # [place] # (Auto) (0.0-1.3) # Eos # (Auto) (0.0-0.8) # Baso # (Auto) (0.0-0.2) # Add Manual Diff Neutrophils % (Manual) (46-82) % Lymphocytes % (Manual) (13-37) % Monocytes % (Manual) (4-12) % Eosinophils % (Manual) (0-5) % PT 12.0 H 19.4 H 22.0 H (8.7-11.1) INR 1.19 H 1.90 H 2.15 H (0.89-1.13) Sodium (135-145) mmol/L Potassium (3.5-5.3) mmol/L Chloride (100-110) mmol/L Carbon Dioxide (21-32) mmol/L BUN (7-18) mg/dL Creatinine (0.70-1.30) mg/dL Est Cr Clr Drug Dosing Estimated GFR (MDRD) (>60) BUN/Creatinine Ratio (9-20) Glucose (80-116) mg/dL Lactic Acid (0.4-2.2) mmol/L Calcium (8.6-10.2) mg/dL Total Bilirubin (0.1-1.3) mg/dL AST (5-25) IU/L ALT (12-36) U/L Alkaline Phosphatase (56-112) IU/L Troponin I (<0.017-0.056) ng/mL Total Protein (6.0-8.0) g/dL Albumin (3.2-4.6) g/dL Globulin g/dL Albumin/Globulin Ratio Urine Color (YELLOW) Urine Appearance (CLEAR) Urine pH (5.0-6.5) Ur Specific [place] (1.010-1.025) Urine Protein (NEGATIVE) mg/dL Urine Glucose (UA) (NEGATIVE) mg/dL Urine Ketones (NEGATIVE) mg/dL Urine Occult Blood (NEGATIVE) Urine Nitrite (NEGATIVE) Urine Bilirubin (NEGATIVE) Urine Urobilinogen (NEGATIVE) mg/dL Ur Leukocyte Esterase (NEGATIVE) Urine RBC (0) Urine WBC (0) Ur Squamous Epith Cells (NS,R,O) Urine Bacteria (NS) 05/29/17 05/29/17 05/30/17 Range/Units 06:00 06:00 06:15 WBC 4.0 L (4.5-12.0) X10-3/uL RBC 3.97 L (4.30-5.75) x10(6)uL Hgb 12.2 (11.5-15.5) g/dL Hct 36.4 (30.0-51.3) % MCV 91.5 (80-96) fL MCH 30.7 (27.7-33.6) pg MCHC 33.5 (32.2-35.4) g/dL RDW 14.1 (11.5-15.5) % Plt Count 142 (125-369) X10(3)uL MPV 8.1 (7.4-10.4) fL Neut % (Auto) 50.7 (46-82) % Lymph % (Auto) 34.2 (13-37) % [place] % (Auto) 10.4 (4-12) % Eos % (Auto) 4 (1.0-5.0) % Baso % (Auto) 1 (0-2) % Neut # (Auto) 2.0 (1.6-8.3) # Lymph # (Auto) 1.4 (0.6-5.0) # [place] # (Auto) 0.4 (0.0-1.3) # Eos # (Auto) 0.2 (0.0-0.8) # Baso # (Auto) 0.0 (0.0-0.2) # Add Manual Diff Neutrophils % (Manual) (46-82) % Lymphocytes % (Manual) (13-37) % Monocytes % (Manual) (4-12) % Eosinophils % (Manual) (0-5) % PT 23.4 H (8.7-11.1) INR 2.28 H (0.89-1.13) Sodium 141 (135-145) mmol/L Potassium 3.8 (3.5-5.3) mmol/L Chloride 105 (100-110) mmol/L Carbon Dioxide 29 (21-32) mmol/L BUN 8 (7-18) mg/dL Creatinine 0.9 (0.70-1.30) mg/dL Est Cr Clr Drug Dosing 58.06 Estimated GFR (MDRD) > 60 (>60) BUN/Creatinine Ratio 8.9 L (9-20) Glucose 101 (80-116) mg/dL Lactic Acid (0.4-2.2) mmol/L Calcium 8.9 (8.6-10.2) mg/dL Total Bilirubin 0.3 (0.1-1.3) mg/dL AST 14 D (5-25) IU/L ALT 15 D (12-36) U/L Alkaline Phosphatase 69 (56-112) IU/L Troponin I (<0.017-0.056) ng/mL Total Protein 6.0 (6.0-8.0) g/dL Albumin 2.6 L (3.2-4.6) g/dL Globulin 3.4 g/dL Albumin/Globulin Ratio 0.8 Urine Color (YELLOW) Urine Appearance (CLEAR) Urine pH (5.0-6.5) Ur Specific [place] (1.010-1.025) Urine Protein (NEGATIVE) mg/dL Urine Glucose (UA) (NEGATIVE) mg/dL Urine Ketones (NEGATIVE) mg/dL Urine Occult Blood (NEGATIVE) Urine Nitrite (NEGATIVE) Urine Bilirubin (NEGATIVE) Urine Urobilinogen (NEGATIVE) mg/dL Ur Leukocyte Esterase (NEGATIVE) Urine RBC (0) Urine WBC (0) Ur Squamous Epith Cells (NS,R,O) Urine Bacteria (NS) 05/31/17 Range/Units 06:00 WBC (4.5-12.0) X10-3/uL RBC (4.30-5.75) x10(6)uL Hgb (11.5-15.5) g/dL Hct (30.0-51.3) % MCV (80-96) fL MCH (27.7-33.6) pg MCHC (32.2-35.4) g/dL RDW (11.5-15.5) % Plt Count (125-369) X10(3)uL MPV (7.4-10.4) fL Neut % (Auto) (46-82) % Lymph % (Auto) (13-37) % [place] % (Auto) (4-12) % Eos % (Auto) (1.0-5.0) % Baso % (Auto) (0-2) % Neut # (Auto) (1.6-8.3) # Lymph # (Auto) (0.6-5.0) # [place] # (Auto) (0.0-1.3) # Eos # (Auto) (0.0-0.8) # Baso # (Auto) (0.0-0.2) # Add Manual Diff Neutrophils % (Manual) (46-82) % Lymphocytes % (Manual) (13-37) % Monocytes % (Manual) (4-12) % Eosinophils % (Manual) (0-5) % PT 27.8 H (8.7-11.1) INR 2.69 H (0.89-1.13) Sodium (135-145) mmol/L Potassium (3.5-5.3) mmol/L Chloride (100-110) mmol/L Carbon Dioxide (21-32) mmol/L BUN (7-18) mg/dL Creatinine (0.70-1.30) mg/dL Est Cr Clr Drug Dosing Estimated GFR (MDRD) (>60) BUN/Creatinine Ratio (9-20) Glucose (80-116) mg/dL Lactic Acid (0.4-2.2) mmol/L Calcium (8.6-10.2) mg/dL Total Bilirubin (0.1-1.3) mg/dL AST (5-25) IU/L ALT (12-36) U/L Alkaline Phosphatase (56-112) IU/L Troponin I (<0.017-0.056) ng/mL Total Protein (6.0-8.0) g/dL Albumin (3.2-4.6) g/dL Globulin g/dL Albumin/Globulin Ratio Urine Color (YELLOW) Urine Appearance (CLEAR) Urine pH (5.0-6.5) Ur Specific [place] (1.010-1.025) Urine Protein (NEGATIVE) mg/dL Urine Glucose (UA) (NEGATIVE) mg/dL Urine Ketones (NEGATIVE) mg/dL Urine Occult Blood (NEGATIVE) Urine Nitrite (NEGATIVE) Urine Bilirubin (NEGATIVE) Urine Urobilinogen (NEGATIVE) mg/dL Ur Leukocyte Esterase (NEGATIVE) Urine RBC (0) Urine WBC (0) Ur Squamous Epith Cells (NS,R,O) Urine Bacteria (NS) IVANIA Results - Last 24 hrs: Microbiology 05/24/17 19:15 Blood - Venous - Lab Draw Aerobic Blood Culture - Final NO GROWTH AFTER 5 DAYS 05/24/17 19:15 Blood - Venous - Lab Draw Anaerobic Blood Culture - Final 05/24/17 16:20 Blood - Venous Aerobic Blood Culture - Final NO GROWTH AFTER 5 DAYS 05/24/17 16:20 Blood - Venous Anaerobic Blood Culture - Final 05/24/17 21:35 Nasal, Left Influenza Type A Antigen Screen - Final Positive Influenza A Ag 05/24/17 21:35 Nasal, Left Influenza Type B Antigen Screen - Final NEGATIVE INFLUENZA B VIRUS AG Med Orders - Current: Current Medications Acetaminophen (Tylenol) 650 mg PO Q4H PRN PRN Reason: Fever Last Admin: 05/29/17 14:39 Dose: 650 mg Acetaminophen (Tylenol) 650 mg PO TID PRN PRN Reason: Pain Last Admin: 05/30/17 11:04 Dose: 650 mg Albuterol (Proventil Neb Soln) 2.5 mg NEB Q2H PRN PRN Reason: Shortness Of Breath/wheezing Last Admin: 05/27/17 02:06 Dose: 2.5 mg Albuterol/Ipratropium (Duoneb 3.0-0.5 Mg/3 Ml) 3 ml NEB QIDRT [facility] Last Admin: 05/31/17 07:30 Dose: 3 ml Aspirin (Halfprin) 81 mg PO DAILY [facility] Last Admin: 05/30/17 09:04 Dose: 81 mg Atorvastatin Calcium (Lipitor) 40 mg PO BEDTIME [facility] Last Admin: 05/30/17 21:11 Dose: 40 mg Carvedilol (Coreg) 3.125 mg PO BIDMEALS [facility] Last Admin: 05/30/17 17:54 Dose: 3.125 mg Clopidogrel Bisulfate (Plavix) 75 mg PO DAILY [facility] Last Admin: 05/30/17 09:02 Dose: 75 mg Furosemide (Lasix) 20 mg PO DAILY PRN PRN Reason: Edema Ibuprofen (Motrin) 600 mg PO Q6H PRN PRN Reason: Fever Last Admin: 05/30/17 14:05 Dose: 600 mg Latanoprost (Xalatan 0.005% Ophth Soln) 0 ml EYERT BEDTIME [facility] Last Admin: 05/30/17 21:15 Dose: 1 drop Levofloxacin (Levaquin) 750 mg PO Q24H [facility] Last Admin: 05/30/17 20:55 Dose: 750 mg Menthol (Perform Pain Reliever) 0 ml TP TID [facility] Last Admin: 05/30/17 21:12 Dose: 89 ml Multivitamins/Minerals/Vitamin C (Tab-A-Karolyn) 1 tab PO DAILY [facility] Last Admin: 05/30/17 09:03 Dose: 1 tab Nitroglycerin (Nitrostat) 0.4 mg SL ASDIRECTED PRN PRN Reason: Chest Pain Pantoprazole Sodium (Protonix) 40 mg PO DAILY@0600 [facility] Last Admin: 05/31/17 06:12 Dose: 40 mg Propylene Glycol (Systane Lubricant) 0 ml EYELF BID [facility] Last Admin: 05/30/17 21:13 Dose: 1 drop Sodium Chloride (Saline Flush) 10 ml FLUSH ASDIRECTED PRN PRN Reason: Keep Vein Open Last Admin: 05/28/17 21:44 Dose: 10 ml Sodium Chloride ([place] Nasal [place]) 0 ml NARCISA BID [facility] Last Admin: 05/30/17 21:12 Dose: 1 spray Tamsulosin HCl (Flomax) 0.4 mg PO DAILY [facility] Last Admin: 05/30/17 09:04 Dose: 0.4 mg Timolol Maleate (Timoptic 0.5% Ophth Soln) 0 ml EYERT DAILY [facility] Last Admin: 05/30/17 09:05 Dose: 1 drop Triamcinolone Acetonide (Triamcinolone Acetonide 0.1% Oint) 0 gm TOP BID [facility] Last Admin: 05/30/17 21:14 Dose: 1 applic Warfarin Sodium (Coumadin Sliding Scale) 1 each PO .PHARMACYTODOSE [facility] Warfarin Sodium (Coumadin) 5 mg PO Mo [facility] Last Admin: 05/29/17 17:35 Dose: 5 mg Warfarin Sodium (Coumadin) 2.5 mg PO SuTuWeThFrSa [facility] Last Admin: 05/30/17 16:16 Dose: 2.5 mg Zolpidem Tartrate (Ambien) 5 mg PO BEDTIME PRN PRN Reason: Insomnia Last Admin: 05/27/17 21:08 Dose: 5 mg Discontinued Medications Acetaminophen (Tylenol) Confirm Administered Dose 325 mg .ROUTE .STK-MED ONE Stop: 05/26/17 19:35 Last Admin: 05/26/17 21:54 Dose: Not Given Carvedilol (Coreg) 6.25 mg PO BIDMEALS [facility] Last Admin: 05/26/17 10:41 Dose: Not Given Enoxaparin Sodium (Lovenox) 40 mg SUBCUT Q24H [facility] Last Admin: 05/27/17 17:05 Dose: 40 mg Levofloxacin/Dextrose 500 mg/ (Premix) 100 mls @ 100 mls/hr IV ONETIME ONE Stop: 05/24/17 21:43 Last Admin: 05/24/17 21:25 Dose: 100 mls/hr Sodium Chloride (Normal Saline) 250 mls @ 100 mls/hr IV ASDIRECTED [facility] Last Admin: 05/24/17 21:25 Dose: 100 mls/hr Levofloxacin/Dextrose 750 mg/ (Premix) 150 mls @ 100 mls/hr IV Q24H [facility] Stop: 05/29/17 21:29 Last Admin: 05/28/17 20:43 Dose: 100 mls/hr Ondansetron HCl (Zofran) 4 mg IV Q4H PRN PRN Reason: Nausea/Vomiting Oseltamivir Phosphate (Tamiflu) 75 mg PO BID [facility] Stop: 05/29/17 21:01 Last Admin: 05/29/17 20:57 Dose: 75 mg Warfarin Sodium (Coumadin) 5 mg PO Mo@1600 [facility] Warfarin Sodium (Coumadin) 2.5 mg PO SuTuWeThFrSa [facility] Warfarin Sodium (Coumadin) 5 mg PO ONETIME ONE Stop: 05/26/17 16:01 Last Admin: 05/26/17 15:51 Dose: 5 mg Warfarin Sodium (Coumadin) 5 mg PO 1600 [facility] Stop: 05/27/17 17:30 Last Admin: 05/27/17 17:04 Dose: 5 mg Warfarin Sodium (Coumadin) 2.5 mg PO ONETIME ONE Stop: 05/28/17 16:01 Last Admin: 05/28/17 17:16 Dose: 2.5 mg - Exam Physical Findings Comments:: Quality Assessment: RA General: Alert, Oriented, Cooperative, No Acute Distress HEENT: Mucous Membr. Moist/[place], Other (Obvious left facial drooping), no maxillary or frontal sinus tenderness or warmth to palpation. Neck: supple. Lungs: Breath Sounds at bases demonstrate improved aeration throughout, Crackles remain, Rales remain but minimal, Wheezing minimal at bases bilaterally expiratory today. Cardiovascular: Regular Rate, Irregular Rhythm GI/Abdominal Exam: Normal Bowel Sounds, Soft, Non-Tender Back Exam: Normal Inspection Extremities: Left is nontender to palpation and no increased warmth. No swelling. Non-Tender. Mild clawing of the left hand stable. no contracture. No: Joint Swelling Skin: Warm, Intact Neurological: No New Focal Deficit, Normal Speech, Sensation Intact. No: Strength Equal Bilateral (Left side weaker than the right.) Psy/Mental Status: Normal Affect Normal Mood, glad to be going to his own home. *Q Meaningful Use (DIS) - VTE *Q VTE Criteria *Q: VTE Mechanical Contraindications *Q: At Risk for Falls - Stroke *Q Stroke Criteria *Q: - AMI *Q AMI Criteria *Q:
[2017-05-31] MEDS: Triamcinolone Acetonide 0.1% Oint 15 GM Tube TOP SCH (08:47)
[2017-05-31] MEDS: Multivitamin Tab PO SCH (08:47)
[2017-05-31] MEDS: Timolol Maleate 0.5% Ophth Soln 5 ML Bottle EYERT SCH (08:47)
== END 2017-05-31 11:40 | disposition home health service (06) | DRG 64 ==
LOC: FB.ED 16:02 → FB.MS 17:29 → OBSVTOIN 05-25 09:20
PROVIDERS: ADMIT Family Medicine; ATTEND Family Medicine
DX: I63.9 Cerebral infarction, unspecified (principal); I45.9 Conduction disorder, unspecified; J09.X1 Influenza due to identified novel influenza A virus with pneumonia; R06.03 Acute respiratory distress; I48.91 Unspecified atrial fibrillation; Z79.82 Long term (current) use of aspirin; R79.1 Abnormal coagulation profile; J01.40 Acute pansinusitis, unspecified; R53.1 Weakness; I25.10 Atherosclerotic heart disease of native coronary artery without angina pectoris; Q71.6 Lobster-claw hand; Z51.5 Encounter for palliative care; Z79.899 Other long term (current) drug therapy; Z79.01 Long term (current) use of anticoagulants; Z88.8 Allergy status to other drugs, medicaments and biological substances; Z95.0 Presence of cardiac pacemaker; Z87.891 Personal history of nicotine dependence
CPT/HCPCS: 36415 ×2; 70450; 71045; 80048; 80053; 81001; 83605; 84484; 85025 ×2; 85610; 87040 ×2; 87804 ×2; 93005; 94640 ×2; 99285; A9270 ×3; J1956; J7050 ×3; 71046; 93010; 94150; 96365; 97110-GP; 97116-GP; 97161-GP; 97530-GP; G0378; J1650; J7620

== ENCOUNTER 2018-05-28 10:18 | Inpatient (IN) | payer MEDICARE, OTHER ==
--- NOTE | 2018-05-28 10:18 | EDM.PDOC ---
ED HPI GENERAL MEDICAL PROBLEM - General Stated Complaint: WEAKNESS Time Seen by Provider: 05/28/18 09:13 Source of Information: Reports: Patient, EMS, Family History Limitations: Reports: Physical Impairment - History of Present Illness INITIAL COMMENTS - FREE TEXT/NARRATIVE: 87 y.o.w.m with a H/O left sided CVA, afib (on coumadine) came to the ed with gen weakness. No Trauma. Pt had diarrhea in the past few days. Pt was ambulating fine last Monday with a cane. Last Monday, pt's noticed the patient is leaning his head to the right and was not able to ambulate since. Pt is a poor historian, no trauma. Pt;s noticed extreme lower extremity weakness. Pt had in the past low back surgery. No C/P no N/V. No other acute medial issues. BP 131/74 RR 28 Pulse ox 94% on RA Temp 37.1 Pulse 70 MID ABDOMEN Pain Score (Numeric/FACES): 5 RIGHT UPPER AND LOWER QUAD Pain Score (Numeric/FACES): 2 - Related Data Allergies Allergy/AdvReac Type Severity Reaction Status Date / Time codeine Allergy Unknown Cannot Verified 05/28/18 10:19 Remember oxycodone HCl [From Tylox] Allergy Unknown Cannot Verified 05/28/18 10:19 Remember Home Meds: Home Meds Acetaminophen [Tylenol] 650 mg PO TID PRN 03/24/17 [History] Calcium Carbonate/Vitamin D3 [Calcium 600-Vit D3 400 Tablet] 1 tab PO DAILY 08/05 [History] Clopidogrel Bisulfate [Clopidogrel] 75 mg PO DAILY 03/24/17 [History] Dextran 70/Hypromellose [Artificial Tears] 1 drop EYELF BID 03/24/17 [History] Latanoprost [Xalatan 0.005% Ophth Soln] 1 drop EYERT BEDTIME 03/24/17 [History] Lutein 20 mg PO DAILY 03/24/17 [History] Multivitamin [Multivitamins] 1 tab PO DAILY 03/24/17 [History] Ranitidine [Zantac] 150 mg PO BID 03/24/17 [History] Tamsulosin [Flomax] 0.4 mg PO DAILY 03/24/17 [History] Timolol Maleate [Timoptic 0.5% Ophth Soln] 1 drop EYERT DAILY 03/24/17 [History] atorvaSTATin [Lipitor] 40 mg PO BEDTIME 03/24/17 [History] Aspirin [Lo-Dose Aspirin EC] 81 mg PO DAILY 05/28/18 [History] Carvedilol [Coreg] 6.25 mg PO BID 05/28/18 [History] Cyclobenzaprine [Flexeril] 10 mg PO TID PRN 05/28/18 [History] Diphenoxylate HCl/Atropine [Diphenoxylate-Atrop 2.5-0.025] 1 each PO BID PRN 12/07 [History] Escitalopram [Lexapro] 10 mg PO DAILY 05/28/18 [History] Pantoprazole Sodium [Protonix] 40 mg PO DAILY 05/28/18 [History] Warfarin Sodium 2.5 mg PO [id number] 05/28/18 [History] Warfarin [Coumadin] 5 mg PO MO 05/28/18 [History] Past Medical History HEENT History: Reports: Other (See Below) 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 Gastrointestinal History: Reports: Colon Polyp Genitourinary History: Reports: Urinary Incontinence, Other (See Below) Other Genitourinary History: Urinaty incontinence mainly at night, wears Depends all the time. 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 - Past Surgical History Cardiovascular Surgical History: Reports: Coronary Artery Stent Other Respiratory Surgeries/Procedures: READ THE REFERAL PAPERS SENT FROM [facility] FOR FURTHER HISTORY Other GI Surgeries/Procedures: UNABLE TO DO DUE TO PT CONFUSED Social & Family History - Family History Family Medical History: Noncontributory - Caffeine Use Caffeine Use: Reports: None Other Caffeine Use: Likes Hot Chocolate. ED ROS GENERAL - Review of Systems Review Of Systems: Unable To Obtain ED EXAM, GENERAL - Physical Exam Exam: See Below Exam Limited By: Physical Impairment General Appearance: Alert, WD/WN, Mild Distress Eye Exam: Bilateral Eye: Normal Inspection Ears: Normal External Exam Ear Exam: Bilateral Ear: Auricle Normal Nose: Normal Inspection, Normal Mucosa Throat/Mouth: Normal Lips, Normal Voice, No Airway Compromise, Other (tongue pointing to giuseppe right) Head: Atraumatic, Normocephalic Neck: Normal Inspection, Supple, Non-Tender, Full Range of Motion Respiratory/Chest: No Respiratory Distress, Lungs Clear, Normal Breath Sounds, Chest Non-Tender Cardiovascular: Normal Peripheral Pulses, Regular Rate, Rhythm, No Edema, No Gallop, No Murmur Peripheral Pulses: 2+: Brachial (R) GI/Abdominal: Normal Bowel Sounds, Soft, Non-Tender, No Organomegaly, No Abnormal Bruit, No Mass, Pelvis Stable (Male) Exam: Deferred Rectal (Males) Exam: Deferred Back Exam: Normal Inspection, Full Range of Motion Extremities: Normal Inspection, Normal Range of Motion, No Pedal Edema, Normal Capillary Refill Neurological: Alert, Oriented, Abnormal Gait (unable to ambulate) Psychiatric: Normal Affect Skin Exam: Warm, Dry, Intact, Normal Color Lymphatic: No Adenopathy EKG INTERPRETATION EKG Date: 05/28/18 Time: 10:20 Rhythm: NSR Rate (Beats/Min): 70 [place]: LAD-Left [place] Deviation P-Wave: Present QRS: LBBB ST-T: Normal QT: Normal Comparison: NA - No Prior EKG EKG Interpretation Comments: ventricular sensed rhythm Course - Vital Signs Text/Narrative:: 87 y.o.w.m with a H/O left sided CVA, afib (on coumadine) came to the ed with gen weakness. No Trauma. Pt had diarrhea in the past few days. Pt was ambulating fine last Monday with a cane. Last Monday, pt's noticed the patient is leaning his head to the right and was not able to ambulate since. Pt is a poor historian, no trauma. Pt;s noticed extreme lower extremity weakness. Pt had in the past low back surgery. No C/P no N/V. No other acute medial issues. BP 131/74 RR 28 Pulse ox 94% on RA Temp 37.1 Pulse 70 PE: WNWD W M with a left sided hemiplegia, Tongue pointing to the eight, left face numbness and unable to walk since Monday Imaging: Head: NAD Labs: CBC, BMP nl UA nl INR 2.12 (on coumadine) Impression: CVA, unable to ambulate Tx: none 12.25 pm Consultation: Dr. Osuna, Hospitalist: Accepted the pt for med inpatient admission Plan: Admit to med [facility], inpatient. Last Recorded V/S: Last Vital Signs Temp 36.6 C 05/29/18 08:00 Pulse 74 05/29/18 15:19 Resp 18 05/29/18 08:00 BP 106/67 05/29/18 09:01 Pulse Ox 92 L 05/29/18 16:33 - Orders/Labs/Meds Orders: Medication Orders Acetaminophen (Tylenol) 650 mg PO TID PRN PRN Reason: Pain Albuterol/Ipratropium (Duoneb 3.0-0.5 Mg/3 Ml) 3 ml NEB TIDRT [facility] Last Admin: 05/29/18 15:03 Dose: 3 ml Admin: 05/29/18 07:10 Dose: 3 ml Admin: 05/28/18 20:47 Dose: 3 ml Artificial Tears (Liquitears 1.4% Ophth Soln) 0 ml EYELF BID [facility] Last Admin: 05/29/18 09:02 Dose: 1 drop Admin: 05/28/18 20:47 Dose: 1 drop Atorvastatin Calcium (Lipitor) 40 mg PO BEDTIME [facility] Last Admin: 05/28/18 20:46 Dose: 40 mg Carvedilol (Coreg) 6.25 mg PO BID [facility] Last Admin: 05/29/18 09:01 Dose: 6.25 mg Admin: 05/28/18 20:48 Dose: 6.25 mg Clopidogrel Bisulfate (Plavix) 75 mg PO DAILY [facility] Last Admin: 05/29/18 09:02 Dose: 75 mg Diphenoxylate HCl/Atropine (Lomotil 0.025-2.5 Mg) 1 tab PO BID PRN PRN Reason: Diarrhea Last Admin: 05/29/18 10:30 Dose: 1 tab Escitalopram Oxalate (Lexapro) 10 mg PO DAILY [facility] Last Admin: 05/29/18 09:02 Dose: 10 mg Latanoprost (Xalatan 0.005% Ophth Soln) 0 ml EYERT BEDTIME [facility] Last Admin: 05/28/18 20:47 Dose: 1 drop Lutein (Lutein) 20 mg PO DAILY [facility] Last Admin: 05/29/18 09:02 Dose: 20 mg Pantoprazole Sodium (Protonix) 40 mg PO DAILY@0600 [facility] Last Admin: 05/29/18 09:01 Dose: 40 mg Sodium Chloride (Saline Flush) 10 ml FLUSH ASDIRECTED PRN PRN Reason: Keep Vein Open Tamsulosin HCl (Flomax) 0.4 mg PO DAILY [facility] Last Admin: 05/29/18 09:02 Dose: 0.4 mg Timolol Maleate (Timoptic 0.5% Ophth Soln) 0 ml EYERT DAILY [facility] Last Admin: 05/29/18 09:03 Dose: 1 drop Warfarin Sodium (Coumadin) 2.5 mg PO SuTuWeThFrSa@1600 [facility] Warfarin Sodium (Coumadin) 5 mg PO Mo@1600 [facility] Warfarin Sodium (Coumadin Sliding Scale) 1 each PO ASDIRECTED [facility] Labs: Laboratory Tests 05/28/18 05/28/18 05/28/18 Range/Units 10:25 10:25 10:25 WBC 5.5 (4.5-12.0) X10-3/uL RBC 4.04 L (4.30-5.75) x10(6)uL Hgb 12.6 (11.5-15.5) g/dL Hct 37.6 (30.0-51.3) % MCV 93.0 (80-96) fL MCH 31.2 (27.7-33.6) pg MCHC 33.6 (32.2-35.4) g/dL RDW 15.0 (11.5-15.5) % Plt Count 151 (125-369) X10(3)uL MPV 7.9 (7.4-10.4) fL Neut % (Auto) 66.2 (46-82) % Lymph % (Auto) 18.0 (13-37) % Lewis % (Auto) 10.1 (4-12) % Eos % (Auto) 2 (1.0-5.0) % Baso % (Auto) 3 H (0-2) % Neut # (Auto) 3.6 (1.6-8.3) # Lymph # (Auto) 1.0 (0.6-5.0) # Lewis # (Auto) 0.6 (0.0-1.3) # Eos # (Auto) 0.1 (0.0-0.8) # Baso # (Auto) 0.2 (0.0-0.2) # PT 20.4 H (8.7-11.1) INR 2.12 H (0.89-1.13) Sodium 142 (135-145) mmol/L Potassium 3.7 (3.5-5.3) mmol/L Chloride 106 (100-110) mmol/L Carbon Dioxide 28 (21-32) mmol/L BUN 10 (7-18) mg/dL Creatinine 1.0 (0.70-1.30) mg/dL Est Cr Clr Drug Dosing 51.30 mL/min Estimated GFR (MDRD) > 60 (>60) BUN/Creatinine Ratio 10.0 (9-20) Glucose 112 (80-116) mg/dL Calcium 8.3 L (8.6-10.2) mg/dL Troponin I (<0.017-0.056) ng/mL Urine Color (YELLOW) Urine Appearance (CLEAR) Urine pH (5.0-6.5) Ur Specific [place] (1.010-1.025) Urine Protein (NEGATIVE) mg/dL Urine Glucose (UA) (NEGATIVE) mg/dL Urine Ketones (NEGATIVE) mg/dL Urine Occult Blood (NEGATIVE) Urine Nitrite (NEGATIVE) Urine Bilirubin (NEGATIVE) Urine Urobilinogen (NEGATIVE) mg/dL Ur Leukocyte Esterase (NEGATIVE) Urine RBC (0) Urine WBC (0) Ur Squamous Epith Cells (NS,R,O) Urine Bacteria (NS) Urine Mucus (NS) 05/28/18 05/28/18 Range/Units 10:25 11:16 WBC (4.5-12.0) X10-3/uL RBC (4.30-5.75) x10(6)uL Hgb (11.5-15.5) g/dL Hct (30.0-51.3) % MCV (80-96) fL MCH (27.7-33.6) pg MCHC (32.2-35.4) g/dL RDW (11.5-15.5) % Plt Count (125-369) X10(3)uL MPV (7.4-10.4) fL Neut % (Auto) (46-82) % Lymph % (Auto) (13-37) % [place] % (Auto) (4-12) % Eos % (Auto) (1.0-5.0) % Baso % (Auto) (0-2) % Neut # (Auto) (1.6-8.3) # Lymph # (Auto) (0.6-5.0) # Lewis # (Auto) (0.0-1.3) # Eos # (Auto) (0.0-0.8) # Baso # (Auto) (0.0-0.2) # PT (8.7-11.1) INR (0.89-1.13) Sodium (135-145) mmol/L Potassium (3.5-5.3) mmol/L Chloride (100-110) mmol/L Carbon Dioxide (21-32) mmol/L BUN (7-18) mg/dL Creatinine (0.70-1.30) mg/dL Est Cr Clr Drug Dosing mL/min Estimated GFR (MDRD) (>60) BUN/Creatinine Ratio (9-20) Glucose (80-116) mg/dL Calcium (8.6-10.2) mg/dL Troponin I < 0.017 L (<0.017-0.056) ng/mL Urine Color Yellow (YELLOW) Urine Appearance Clear (CLEAR) Urine pH 6.0 (5.0-6.5) Ur Specific [place] 1.010 (1.010-1.025) Urine Protein Negative (NEGATIVE) mg/dL Urine Glucose (UA) Normal (NEGATIVE) mg/dL Urine Ketones Negative (NEGATIVE) mg/dL Urine Occult Blood Negative (NEGATIVE) Urine Nitrite Negative (NEGATIVE) Urine Bilirubin Negative (NEGATIVE) Urine Urobilinogen Normal (NEGATIVE) mg/dL Ur Leukocyte Esterase Negative (NEGATIVE) Urine RBC 0-5 (0) Urine WBC 0-5 (0) Ur Squamous Epith Cells Occasional (NS,R,O) Urine Bacteria Few H (NS) Urine Mucus Few H (NS) Meds: Medications Generic Name Dose Route Start Last Admin Trade Name Freq PRN Reason Stop Dose Admin Acetaminophen 650 mg 05/28/18 16:12 Tylenol PO TID PRN Pain Albuterol/Ipratropium 3 ml 05/28/18 21:00 05/29/18 15:03 Duoneb 3.0-0.5 Mg/3 Ml NEB 3 ml TIDRT [facility] Administration Artificial Tears 0 ml 05/28/18 21:00 05/29/18 09:02 Liquitears 1.4% Ophth Soln EYELF 1 drop BID [facility] Administration Atorvastatin Calcium 40 mg 05/28/18 21:00 05/28/18 20:46 Lipitor PO 40 mg BEDTIME [facility] Administration Carvedilol 6.25 mg 05/28/18 21:00 05/29/18 09:01 Coreg PO 6.25 mg BID [facility] Administration Clopidogrel Bisulfate 75 mg 05/29/18 09:00 05/29/18 09:02 Plavix PO 75 mg DAILY [facility] Administration Diphenoxylate HCl/Atropine 1 tab 05/28/18 16:12 05/29/18 10:30 Lomotil 0.025-2.5 Mg PO 1 tab BID PRN Administration Diarrhea Escitalopram Oxalate 10 mg 05/29/18 09:00 05/29/18 09:02 Lexapro PO 10 mg DAILY [facility] Administration Latanoprost 0 ml 05/28/18 21:00 05/28/18 20:47 Xalatan 0.005% Ophth Soln EYERT 1 drop BEDTIME [facility] Administration Lutein 20 mg 05/29/18 09:00 05/29/18 09:02 Lutein PO 20 mg DAILY [facility] Administration Pantoprazole Sodium 40 mg 05/29/18 06:00 05/29/18 09:01 Protonix PO 40 mg DAILY@0600 [facility] Administration Sodium Chloride 10 ml 05/28/18 16:34 Saline Flush FLUSH ASDIRECTED PRN Keep Vein Open Tamsulosin HCl 0.4 mg 05/29/18 09:00 05/29/18 09:02 Flomax PO 0.4 mg DAILY [facility] Administration Timolol Maleate 0 ml 05/29/18 09:00 05/29/18 09:03 Timoptic 0.5% Ophth Soln EYERT 1 drop DAILY [facility] Administration Warfarin Sodium 2.5 mg 05/29/18 16:00 Coumadin PO SuTuWeThFrSa@1600 [facility] Warfarin Sodium 5 mg 05/28/18 16:15 Coumadin PO Mo@1600 [facility] Warfarin Sodium 1 each 05/29/18 10:00 Coumadin Sliding Scale PO ASDIRECTED [facility] Discontinued Medications Generic Name Dose Route Start Last Admin Trade Name Freq PRN Reason Stop Dose Admin Warfarin Sodium 5 mg 05/29/18 16:00 05/29/18 17:20 Coumadin PO 05/29/18 16:01 5 mg 1600 [facility] Administration Departure - Departure Time of Disposition: 20:00 Disposition: Admitted As Inpatient 67 Condition: Fair Clinical Impression: CVA (cerebral vascular accident) Qualifiers: CVA mechanism: unspecified Qualified Code(s): I63.9 - Cerebral infarction, unspecified - Discharge Information
[2018-05-28] MEDS ORDERED: Atropine/Diphenoxylate 0.025-2.5 MG Tab PO PRN (16:12)
[2018-05-28] MEDS ORDERED: Warfarin 5 MG Tab PO SCH (16:15)
[2018-05-28] MEDS: Sodium Chloride 0.9% 10 ML Syringe FLUSH PRN (18:00)
--- NOTE | 2018-05-28 19:42 | HP ---
ADMISSION DATE: 05/28/2018 ADMISSION HISTORY AND PHYSICAL SOURCES OF INFORMATION: History is from the patient, his , and the old chart. The patient is deemed to be a quite poor historian, and his is not aware of all the details of his medical problems either. CHIEF COMPLAINT: Weakness and fall. HISTORY OF PRESENT ILLNESS: Mr. Yanez is an 87-year-old man from [facility] with a history of previous right CVA with left hemiplegia, myocardial infarction with stents, and chronic congestive heart failure. He has had immobility with very poor ambulation in the past, but has been able to get himself up with assistance and walk. According to the patient's who accompanies him, yesterday evening, he was unable to get out of a chair, and his was unable to assist him out of the chair and she summoned help. They got him into the bed for bedtime. At that time, his did not notice any new focal weakness, although he has always had partial hemiplegia on the left side since his stroke in 2016. He was very restless overnight and apparently dreaming, flailing his arms, etc. This morning, she was as well unable to get him up out of bed. She had assistance to help him up and get up into the chair, but he was again unable to walk today. For this reason, the ambulance was summoned, and he was brought [facility], where he was evaluated by Dr. Garcia, and is now admitted. The patient and his deny that he has had recent fever, chills, or sweats. No symptoms of recent systemic infection. He has not had any medication changes. She does state, however, that last week he had diarrhea with loose stools for approximately 2 days that subsequently resolved. He has also had a cough that has been chronic, but she has noticed wheezing in the last 48 hours. He specifically denies having any chest pain, but he apparently has a history of chronic epigastric discomfort that has been attributed to previous surgeries. He is on Protonix and ranitidine for this. PAST MEDICAL AND SURGICAL HISTORY: Significant for 1. Chronic atrial fibrillation. 2. 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 3. He has had myocardial infarction in 2016 and two coronary artery stents in 2017. 4. He has a history of a colon resection for polyps. 5. GERD. 6. Hyperlipidemia. 7. He has a pacemaker in place and is on chronic warfarin. 8. He has osteoarthritis. 9. Benign prostatic hypertrophy. 10.As mentioned, chronically poor mobility. 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 12.He has had previous abdominal surgery according to his for hernias. 13.He has had cataract surgery on both sides. MEDICATIONS: 1. Warfarin 5 mg on Mondays and 2.5 mg six days a week. 2. Timoptic 0.5, one drop to right eye daily. 3. Flomax 0.4 mg daily. 4. Protonix 40 mg daily. 5. Lutein 20 mg daily. 6. Xalatan 1 drop to right eye at bedtime. 7. Lexapro 10 mg daily. 8. Artificial Tears p.r.n. 9. Plavix 75 mg daily. 10.Carvedilol 6.5 mg b.i.d. 11.Lomotil 1 tablet b.i.d. p.r.n. 12.Lipitor 40 mg daily. 13.Tylenol p.r.n. ALLERGIES: Codeine and oxycodone, both listed side-effects are not recorded. HABITS: Non-smoker and non-drinker. FAMILY AND SOCIAL HISTORY: The patient lives with [place] in [place]. She has been having a hard time taking care of him. He was in [facility] after his stroke in 2016 until approximately June of 2016, and he may need further placement after this episode. REVIEW OF SYSTEMS: HEENT: Negative for complaints of headache. No recent changes in hearing or vision. He has the left eye blindness. No sore throat. He does have a chronic cough, and has been wheezing in the last couple of days. CARDIORESPIRATORY/GASTROINTESTINAL: He denies specifically chest pain or palpitations, but he does report epigastric pain that has been chronic. No lower abdominal pains. He had loose stools with diarrhea last week. This has subsequently resolved, but he does have intermittent soft stools from his previous colectomy. GENITOURINARY: No hematuria or urinary tract infection symptoms. He has chronic BPH. EXTREMITIES/NEUROLOGICAL: He has chronic mild swelling of his ankles. No joint inflammation, but gait has been possible, but antalgic. He has left-sided partial hemiplegia with weakness in the left arm greater than left leg. PHYSICAL EXAMINATION: GENERAL: He is pale, thin, and elderly, lying back on his hospital bed. He has audible wheezing. VITAL SIGNS: Blood pressure of 112/71, pulse of 71 and regular, respirations of 24, temperature of 98.4, weight of 173 pounds, and O2 saturation of 92% on room air. SKIN: Anicteric, warm, and dry. No rash. No sign of trauma is noted. His does report that he has had a sore in his buttocks examined by Dr. Garrick Chaney. I was not able to roll him up without assistance to get a good look at this area. HEENT: Shows left corneal dystrophy, previous cataract surgeries, and blindness in left eye. Mouth is dry. Throat is clear. PULMONARY: Lungs have expiratory wheezes. There were slight rales at the left base. HEART: Regular. No murmur is heard. ABDOMEN: Normal bowel sounds. Soft and nontender. No masses. No organomegaly. He has well-healed, slightly retracted epigastric midline surgical scars. EXTREMITIES: Show 1+ pitting edema at the ankles with intact dorsalis pedis pulses. NEUROLOGIC: Exam reveals him to be a poor historian and somewhat lethargic. He can lift his left arm up off the bed antigravity, but very weak unix analyst strength on the left and intact on the right. He can lift both legs up off the bed 2 feet, but he can lift each leg off the bed 2 feet, and has both dorsiflexion and plantar flexion strength in his feet. LABORATORY DATA: White count is 5500 and hemoglobin is 12.6. INR is 2.12. Electrolytes are normal. Creatinine is 1.0. Urinalysis is negative. DIAGNOSTIC STUDIES: CT of the head shows chronic microvascular disease, encephalomalacia through the right middle cerebral artery distribution unchanged, and no new findings. ASSESSMENT: 1. Weakness with inability to walk in the last 24 hours, question of additional stroke. 2. Chronic congestive heart failure. 3. Respiratory difficulty with wheezing. 4. Chronic atrial fibrillation, on anticoagulation. 5. Coronary artery disease with history of myocardial infarction and angioplasties with stents. 6. Benign prostatic hyperplasia. 7. Blindness of the left eye. 8. Glaucoma in right eye. PLAN: He is admitted to acute care. We will check a chest x-ray, continue his oral medications for now, begin nebulizer treatments, and have physical and occupational therapy assessments. We will continue to provide palliative care measures for his infirmity from old stroke, coronary artery disease, poor mobility, and left-sided weakness. /[id number] STORM/SHANNON
[2018-05-28] MEDS: atorvaSTATin 40 MG Tab PO SCH (20:46)
[2018-05-28] MEDS: Polyvinyl Alcohol 1.4% Ophth Soln 15 ML Bottle EYELF SCH (20:47)
[2018-05-28] MEDS: Albuterol/Ipratropium 3.0-0.5 MG/3 ML Neb Soln NEB SCH (20:47)
[2018-05-28] MEDS: Latanoprost 0.005% Ophth Soln 2.5 ML Bottle EYERT SCH (20:47)
[2018-05-28] MEDS: Carvedilol 6.25 MG Tab PO SCH (20:48)
[2018-05-29] MEDS: Albuterol/Ipratropium 3.0-0.5 MG/3 ML Neb Soln NEB SCH ×3 (07:10→21:33)
[2018-05-29] MEDS: Pantoprazole 40 MG Tab.CR PO SCH (09:01)
[2018-05-29] MEDS: Carvedilol 6.25 MG Tab PO SCH ×2 (09:01→21:34)
[2018-05-29] MEDS: Clopidogrel 75 MG Tab PO SCH (09:02)
[2018-05-29] MEDS: Polyvinyl Alcohol 1.4% Ophth Soln 15 ML Bottle EYELF SCH ×2 (09:02→21:33)
[2018-05-29] MEDS: Tamsulosin 0.4 MG Cap.ER PO SCH (09:02)
[2018-05-29] MEDS: Escitalopram 10 MG Tab PO SCH (09:02)
[2018-05-29] MEDS: Timolol Maleate 0.5% Ophth Soln 5 ML Bottle EYERT SCH (09:03)
[2018-05-29] MEDS ORDERED: Warfarin Sliding Scale PO SCH (10:00)
--- NOTE | 2018-05-29 11:41 | PN ---
DATE SEEN: 05/29/2018 HISTORY: Boo is an 87-year-old admitted yesterday with weakness, falls, and suspicion of a new CVA. A CT scan accomplished in the emergency room showed no sign of a new CVA and it was felt he could have had a TIA. In addition to that, yesterday, he was wheezing significantly, but chest x-ray was done showing no sign of infiltrates, pneumonia, etc. PHYSICAL EXAMINATION: GENERAL: The patient is examined this morning in his wheelchair. He is sitting leaning off to the right with obvious unilateral weakness. MOUTH: Dry. LUNGS: Clear with good air movement to the bases. HEART: Heart sounds are distant and slightly irregular. No murmurs heard. ABDOMEN: Normal bowel sounds. Soft and nontender. EXTREMITIES: Show no edema. He has weakness of left upper and left lower extremity, but functional movement appears preserved on the right side. ASSESSMENT: 1. Weakness, suspicious for transient ischemic attack. 2. Old right-sided cerebrovascular accident with dense left hemiplegia. 3. History of coronary artery disease with likely low cardiac output. 4. Chronic atrial fibrillation, on anticoagulation. 5. Palliative care. PLAN: Boo is having physical and occupational therapy assessments. We will continue his current medications and make a decision regarding his ability to return home again. He does have a home health aide that comes in twice a day and his is with him helping the rest of the time. However, he has been unable to walk here and is not clear if he will recuperate enough to return home or need to go to a care home. I anticipate another 24 to 48 hours of acute hospital stay. /[id number] STORM/SHANNON
[2018-05-29] MEDS ORDERED: Warfarin 2.5 MG Tab PO SCH (16:00)
[2018-05-29] MEDS ORDERED: Warfarin 5 MG Tab PO SCH (16:00)
[2018-05-29] MEDS: atorvaSTATin 40 MG Tab PO SCH (21:34)
[2018-05-29] MEDS: Latanoprost 0.005% Ophth Soln 2.5 ML Bottle EYERT SCH (21:34)
[2018-05-29] MEDS: Sodium Chloride 0.9% 10 ML Syringe FLUSH PRN (21:46)
[2018-05-30] MEDS: Pantoprazole 40 MG Tab.CR PO SCH (06:06)
[2018-05-30] MEDS: Albuterol/Ipratropium 3.0-0.5 MG/3 ML Neb Soln NEB SCH ×3 (06:38→20:13)
[2018-05-30] MEDS: Acetaminophen 325 MG Tab PO PRN ×3 (07:10→21:56)
[2018-05-30] MEDS: Escitalopram 10 MG Tab PO SCH (08:22)
[2018-05-30] MEDS: Clopidogrel 75 MG Tab PO SCH (08:22)
[2018-05-30] MEDS: Tamsulosin 0.4 MG Cap.ER PO SCH (08:22)
[2018-05-30] MEDS: Carvedilol 6.25 MG Tab PO SCH ×2 (08:23→20:13)
[2018-05-30] MEDS: Timolol Maleate 0.5% Ophth Soln 5 ML Bottle EYERT SCH (08:23)
[2018-05-30] MEDS: Polyvinyl Alcohol 1.4% Ophth Soln 15 ML Bottle EYELF SCH ×2 (08:23→20:14)
--- NOTE | 2018-05-30 11:42 | PN ---
DATE SEEN: 05/30/2018 HISTORY: Boo is an 87-year-old man who was admitted on 05/28/2018 because of weakness, falls, inability to get up, and suspicion for a TIA. He has a history of right CVA with dense left hemiplegia and his ambulatory abilities have been poor. The patient has had wheezing with a slight cough. Since he has been here, his chest x-ray showed no sign of infiltrates. He has been receiving DuoNeb treatments, along with his cardiac medications, warfarin, carvedilol, tamsulosin, and Protonix. PHYSICAL EXAMINATION: GENERAL: He is awake and eating breakfast. He is oriented to place. VITAL SIGNS: Blood pressure 119/72, pulse 72 and irregular, respirations 20, and O2 saturation 91% on 2 L nasal cannula, temperature 97.6. HEENT: Shows mouth to be dry. LUNGS: Expiratory wheezes bilaterally. No focal consolidation. HEART: Irregular in atrial fib pattern. No murmurs heard. ABDOMEN: Normal bowel sounds. Soft and nontender. EXTREMITIES: Show no edema. He has left-sided discoordination, but he is able to move his left leg better than left arm. ASSESSMENT: 1. Cerebrovascular disease with recent transient ischemic attack and remote cerebrovascular accident. 2. Coronary artery disease with chronic congestive heart failure. 3. Benign prostatic hypertrophy. 4. Chronic atrial fibrillation. 5. Chronic obstructive pulmonary disease with wheezing. PLAN: Continue therapy. He does not appear to be strong enough to return to his home, and if that proves to be the case, we will plan for senior living placement. We will continue to provide palliative care measures for Mr. Yanez for his underlying problems including the old stroke with poor mobility, coronary artery disease with heart failure, and COPD. /[id number] STORM/SHANNON
[2018-05-30] MEDS: atorvaSTATin 40 MG Tab PO SCH (20:13)
[2018-05-30] MEDS: Latanoprost 0.005% Ophth Soln 2.5 ML Bottle EYERT SCH (20:14)
[2018-05-31] MEDS: Pantoprazole 40 MG Tab.CR PO SCH (05:56)
[2018-05-31] MEDS: Albuterol/Ipratropium 3.0-0.5 MG/3 ML Neb Soln NEB SCH (07:11)
[2018-05-31] MEDS ORDERED: Mineral Oil/Petrolatum/Phenylephrine/Shark Liver Oil Oint 57 GM Tube RECTAL PRN (08:15)
[2018-05-31] MEDS: Carvedilol 6.25 MG Tab PO SCH (08:21)
[2018-05-31] MEDS: Escitalopram 10 MG Tab PO SCH (08:21)
[2018-05-31] MEDS: Clopidogrel 75 MG Tab PO SCH (08:21)
[2018-05-31] MEDS: Timolol Maleate 0.5% Ophth Soln 5 ML Bottle EYERT SCH (08:22)
[2018-05-31] MEDS: Polyvinyl Alcohol 1.4% Ophth Soln 15 ML Bottle EYELF SCH (08:22)
[2018-05-31] MEDS: Tamsulosin 0.4 MG Cap.ER PO SCH (10:07)
--- NOTE | 2018-05-31 15:38 | DISCH ---
DISCHARGE DATE: 05/31/2018 PRIMARY FINAL DIAGNOSIS: Chronic cerebrovascular accident with hemiplegia with superimposed transient ischemic attack. OTHER DIAGNOSES: Chronic congestive heart failure, coronary artery disease, gastroesophageal reflux disease, benign prostatic hypertrophy, chronic atrial fibrillation, glaucoma, osteoarthritis, dermatitis, bronchitis. OPERATIONS: None. COMPLICATIONS: None. HOSPITAL COURSE: Mr. Yanez is an 87-year-old who had a dense right CVA with left hemiplegia back in 2016. He had been cared for by his at home with an aide coming in twice a day. He was admitted from the ER on 05/28/2018 because of increased weakness, inability is get up, stand, etc. He was found to be much weaker and needed essentially a Sai lift or 2 strong people to lift him. CT of the head was done showing the old encephalomalacia on the right side consistent with his left-sided weakness. No new major area of stroke was seen to account for his new right-sided weakness. The patient on admission had a temp of 99.2, blood pressure 143/91, pulse 87, and 91% saturation on room air. His home medications were continued. Physical and occupational therapy. He was given nebulizer treatments for wheezing and shortness of breath. It was found on physical therapy, he had not regained enough strength to return to his home, and he is discharged to the [facility] at [facility]. He is in stable condition, and he requires nursing home and rehab care. Rehab potential is fair, but discharge potential is low. Mr. Yanez received palliative care measures while hospitalized for his underlying CVA, severely poor mobility, chronic congestive heart failure, osteoarthritis, and these will continue with the [facility] as well. See medication list for medications on discharge. He will have routine care with Dr. Coleman at the [facility]. /[id number] STORM/SHANNON
== END 2018-05-31 10:30 | DRG 69 ==
LOC: FB.ED 10:18 → FB.MS 12:28
PROVIDERS: ADMIT Family Medicine; ATTEND Family Medicine
DX: R53.1 Weakness (principal); I63.9 Cerebral infarction, unspecified; I48.91 Unspecified atrial fibrillation; G45.9 Transient cerebral ischemic attack, unspecified; I69.354 Hemiplegia and hemiparesis following cerebral infarction affecting left non-dominant side; G47.39 Other sleep apnea; R32 Unspecified urinary incontinence; M19.90 Unspecified osteoarthritis, unspecified site; R19.7 Diarrhea, unspecified; I50.9 Heart failure, unspecified; I48.2 Chronic atrial fibrillation; K21.9 Gastro-esophageal reflux disease without esophagitis; J44.9 Chronic obstructive pulmonary disease, unspecified; I25.10 Atherosclerotic heart disease of native coronary artery without angina pectoris; L30.9 Dermatitis, unspecified; E78.5 Hyperlipidemia, unspecified; N40.0 Benign prostatic hyperplasia without lower urinary tract symptoms; H40.9 Unspecified glaucoma; H54.7 Unspecified visual loss; Z79.01 Long term (current) use of anticoagulants; Z88.6 Allergy status to analgesic agent; Z88.5 Allergy status to narcotic agent; Z79.82 Long term (current) use of aspirin; Z79.899 Other long term (current) drug therapy; Z95.0 Presence of cardiac pacemaker; Z86.010 Personal history of colon polyps; Z95.5 Presence of coronary angioplasty implant and graft; I25.2 Old myocardial infarction; Z79.02 Long term (current) use of antithrombotics/antiplatelets; Z51.5 Encounter for palliative care
CPT/HCPCS: 36415; 70450; 71045; 80048; 81001; 83735; 83880; 84484; 85025; 85610; 93005; 93010; 94640; 97110-GP; 97112-GO; 97140-GP; 97162-GP; 97165-GO; 97530-GO; 97530-GP; 99285; A9270-GY; J7620-GY